=== PATIENT | female | born 1970 | race Hispanic/Latino ===

== ENCOUNTER 2017-09-18 07:18 | Emergency (ER) | payer OTHER ==
[~2017-09-18] VITALS: Ht 162.6 cm; Wt 135.2 kg
[~2017-09-18 07:18] MED LIST: AMLODIPINE-BEN1 EAC2 PO; CYCLOBENZAPRINE5 MG PO; CYMBALTA30 MG PO; DICLOFENAC SODI75 MG PO; FLAGYL500 MG PO; FOLIC ACID1 MG; NEURONTIN300 MG PO; NORCO 5-325 TA1 EACH PO; NORVASC2.5 MG PO; PREDNISONE20 MG PO; SMZ/TMP PO; Z.0.OMEPRAZOLE20 MG PO; Z.0.ZOFRAN4 MG PO; [UNRECOGNIZED DRUG - OTHER] PO
--- OUTSIDE RECORDS SUMMARY | 2017-09-18 07:22 | XMS REPORT ---
Author Author [facility] Address Unknown Phone Unavailable Care Team Providers Care Fitness/Wellness Director Name Role Phone KETTY HERCULES Unavailable Unavailable Problems This patient has no known problems. Allergies, Adverse Reactions, Alerts This patient has no known allergies or adverse reactions. Medications This patient has no known medications. Results Test Description Test Time Test Comments Text Results Atomic Results Result Comments URINALYSIS W/ MICROSCOPIC 2017-08-09 20:28:00 COLOR (BEAKER) (test ezmw=083) Light Yellow CLARITY (BEAKER) (test rjee=910) Clear SPECIFIC GRAVITY UA (BEAKER) (test encb=594) 1.007 1.001-1.035 PH UA (BEAKER) (test hxaz=264) 5.5 5.0-8.0 PROTEIN UA (BEAKER) (test gjlc=812) Negative Negative GLUCOSE UA (BEAKER) (test ymxp=504) Negative Negative KETONES UA (BEAKER) (test egpq=050) Negative Negative BILIRUBIN UA (BEAKER) (test mvkj=087) Negative Negative BLOOD UA (BEAKER) (test tywb=999) Negative Negative NITRITE UA (BEAKER) (test lmdj=607) Negative Negative LEUKOCYTE ESTERASE UA (BEAKER) (test mirf=855) Negative Negative UROBILINOGEN UA (BEAKER) (test qwxu=129) 0.2 mg/dL 0.2-1.0 RBC UA (BEAKER) (test tubg=032) 0 /HPF WBC UA (BEAKER) (test segv=425) < /HPF SQUAMOUS EPITHELIAL (BEAKER) (test adcq=580) < /HPF SOURCE(BEAKER) (test yhio=3707) Urine, Clean Catch BASIC METABOLIC [id number] 19:23:00* Test Item Value Reference Range Comments SODIUM (BEAKER) (test dgpe=466) 133 meq/L 136-145 POTASSIUM (BEAKER) (test hjif=233) 4.9 meq/L 3.5-5.1 Specimen markedly hemolyzed CHLORIDE (BEAKER) (test pnpd=422) 101 meq/L 98-107 CO2 (BEAKER) (test pakw=511) 21 meq/L 22-29 BLOOD UREA NITROGEN (BEAKER) (test lfrl=116) 11 mg/dL 7-21 CREATININE (BEAKER) (test idph=089) 0.71 mg/dL 0.57-1.25 Specimen markedly hemolyzed GLUCOSE RANDOM (BEAKER) (test osnz=509) 88 mg/dL 70-105 CALCIUM (BEAKER) (test nvyl=606) 9.8 mg/dL 8.4-10.2 EGFR (BEAKER) (test prym=1218) mL/min/1.73 sq m INSUFFICIENT CLINICAL DATA TO CALCULATE ESTIMATED GFR. CBC W/PLT COUNT & AUTO [id number] 19:21:00* Test Item Value Reference Range Comments WHITE BLOOD CELL COUNT (BEAKER) (test eelx=414) 14.6 K/ L 3.5-10.5 RED BLOOD CELL COUNT (BEAKER) (test qidj=396) 4.82 M/ L 3.93-5.22 HEMOGLOBIN (BEAKER) (test njyq=480) 14.3 GM/DL 11.2-15.7 HEMATOCRIT (BEAKER) (test smmh=240) 43.2 % 34.1-44.9 MEAN CORPUSCULAR VOLUME (BEAKER) (test dhdj=760) 89.6 fL 79.4-94.8 MEAN CORPUSCULAR HEMOGLOBIN (BEAKER) (test yppn=536) 29.7 pg 25.6-32.2 MEAN CORPUSCULAR HEMOGLOBIN CONC (BEAKER) (test rokf=906) 33.1 GM/DL 32.2- 35.5 RED CELL DISTRIBUTION WIDTH (BEAKER) (test wmkd=191) 15.3 % 11.7-14.4 PLATELET COUNT (BEAKER) (test gbod=471) 340 K/CU MM 150-450 MEAN PLATELET VOLUME (BEAKER) (test vkut=182) 11.3 fL 9.4-12.3 NUCLEATED RED BLOOD CELLS (BEAKER) (test fiou=077) 0 /100 WBC 0-0 IMMATURE GRANULOCYTES-RELATIVE PERCENT (BEAKER) (test eool=8357) 1 % 0-1 (MANUAL DIFFERENTIAL)2017-08-09 19:21:00* Test Item Value Reference Range Comments NEUTROPHILS - REL (DIFF) (BEAKER) (test lwkc=7115) 53 % LYMPHOCYTES - REL (DIFF) (BEAKER) (test ztue=5528) 34 % MONOCYTES - REL (DIFF) (BEAKER) (test klxy=9472) 3 % EOSINOPHILS - REL (DIFF) (BEAKER) (test unhf=3198) 5 % BASOPHILS - REL (DIFF) (BEAKER) (test ifoh=0918) 3 % PROMYELOCYTES-REL (DIFF) (BEAKER) (test nghl=591) 1 % 0-0 ATYPICAL LYMPHOCYTE - REL (DIFF) (BEAKER) (test obnf=228) 1 % 0-0 NEUTROPHILS - ABS (DIFF) (BEAKER) (test lhld=8139) 7.74 K/ L 1.80-8.00 LYMPHOCYTES - ABS (DIFF) (BEAKER) (test pkiy=7123) 4.96 K/ L 1.48-4.50 MONOCYTES - ABS (DIFF) (BEAKER) (test ncud=6436) 0.44 K/ L 0.00-1.30 EOSINOPHILS - ABS (DIFF) (BEAKER) (test bxwn=3389) 0.73 K/ L 0.00-0.50 BASOPHILS - ABS (DIFF) (BEAKER) (test gtyi=6644) 0.44 K/ L 0.00-0.20 PROMYELOCYTES - ABS (DIFF) (BEAKER) (test enyo=409) 0.15 K/ L 0.00-0.00 ATYPICAL LYMPHOCYTES - ABS (DIFF) (BEAKER) (test pcxb=073) 0.15 K/ L 0.00- 0.00 TOTAL COUNTED (BEAKER) (test shnr=5269) 100 WBC MORPHOLOGY (BEAKER) (test jovo=158) Normal PLT MORPHOLOGY (BEAKER) (test aaxg=821) Normal ANISOCYTOSIS (BEAKER) (test gwdf=371) 1+ few MACROCYTES (BEAKER) (test haya=046) 1+ few CREATINE KINASE (CK), TOTAL AND [id number] 19:16:00* Test Item Value Reference Range Comments CREATINE KINASE TOTAL (BEAKER) (test qvib=013) 42 U/L 29-200 CREATINE KINASE-MB (BEAKER) (test fzyf=574) 0.4 ng/mL 0.0-6.6 CREATINE KINASE-MB INDEX (COLE) (test duym=400) 1.0 % CK-MB Reference Range:<6.7 Normal6.7-10.0 Borderline>10.0 AbnormalTROPONIN [id number] 19:16:00* Test Item Value Reference Range Comments TROPONIN I (COLE) (test jdqz=270) < ng/mL 0.00-0.03 Troponin I (TnI) levels must be interpreted in the context of the presenting symptoms and the clinical findings. Elevated TnI levels indicate myocardial damage, but are not specific for ischemic heart disease. Elevated TnI levels are seen in patients with other cardiac conditions (including myocarditis and congestive heart failure), and slight TnI elevations occur in patients with other conditions, including sepsis, renal failure, acidosis, acute neurological disease, and persistent tachyarrhythmia.CT, BRAIN, WITHOUT [id number] 18 :09:00Reason for exam:->DIZZINESSReason for exam:->NUMBNESSWhat is the patient' s sedation requirement?->No SedationFINAL REPORT CT head without contrast. Comparisons: No Reason for exam: DIZZINESSNUMBNESSDIZZINESS. Discussion: Multiple axial CT images of the head are provided without contrast evaluated in brain and bone windows. Dose modulation, iterative reconstruction, and/or weight based adjustment of the mA/ kV was utilized to reduce the radiation dose to as low as reasonably achievable. There is no CT evidence of intracranial hemorrhage, mass-effect, hydrocephalus, shift, or extra-axial collections. The visualized dural sinus regions, orbital contents, paranasal sinuses, bones and surrounding soft tissues are unremarkable. Impressions: 1. No specific evidence of acute intracranial abnormality. Signed: Steve Boyer Verified Date/Time: 18:09:37 Electronically signed by: STEVE BOYER M.D. on 2017 06:09 PM
--- NOTE | 2017-09-18 10:35 | Diagnostic Imaging Report ---
PROCEDURE: Frontal and lateral views of the chest. COMPARISON: None. INDICATIONS: FEVER, COUGH, DIZZY FINDINGS: Lines/tubes: None. Lungs: The lungs are well inflated and clear. There is no evidence of pneumonia or pulmonary edema. Pleura: There is no pleural effusion or pneumothorax. Heart and mediastinum: The heart and the mediastinum are normal. Bones: No acute bony abnormality. Postoperative changes of the right shoulder. IMPRESSION: No acute radiographic abnormality. Dictated by: Al Moran M.D. on 09/18/2017 at 10:36 Electronically approved by: Al Moran M.D. on 09/18/2017 at 10:36
[2017-09-18 10:40] LABS: BILIRUBIN,URINE NEGATIVE (NEGATIVE); CLARITY,URINE CLEAR (CLEAR); COLOR,URINE YELLOW (YELLOW); KETONES,URINE NEGATIVE (NEGATIVE); LEUKOCYTE ESTERASE ,URINE TRACE (NEGATIVE); NITRITE,URINE NEGATIVE (NEGATIVE); PROTEIN,URINE DIPSTICK NEGATIVE (NEGATIVE); URINE UROBILINOGEN 0.2 mg/dL (0.2 - 1)
[2017-09-18 10:59] LABS: BACTERIA,URINE RARE /HPF; EPITHELIAL CELLS,URINE FEW /LPF; WBC,URINE (MAN) 0-5 /HPF (0-5)
== END 2017-09-18 12:33 | disposition home or self-care (01) ==
LOC: ER 07:18
DX: R53.1 Weakness (principal); I10 Essential (primary) hypertension
CPT/HCPCS: 71046; 81001; 87400; 99283

== ENCOUNTER 2018-01-15 12:23 | Emergency (ER) | payer OTHER ==
[~2018-01-15] VITALS: Ht 160 cm; Wt 95.3 kg
[2018-01-15 13:32] LABS: BASOPHILS # (AUTO) 0.1 (0.0-0.1); BASOPHILS % 0.5 % (0.0-1.0); EOSINOPHILS # (AUTO) 0.1 (0.0-0.4); EOSINOPHILS % 0.9 % (0.0-6.0); HEMATOCRIT 44.2 % (34.2-44.1); LYMPHOCYTES # (AUTO) 3.7 (1.0-3.2); LYMPHOCYTES % 25.2 % (18.0-39.1); MEAN CORPUSCULAR HGB CONC 33.9 g/dL (31-35); MEAN CORPUSCULAR VOLUME 85.5 fL (81-99); MONOCYTES # (AUTO) 1.1 (0.2-0.8); MONOCYTES % 7.6 % (4.4-11.3); NEUTROPHILS # (AUTO) 9.6 (2.1-6.9); NEUTROPHILS % 65.1 % (38.7-80.0); PLATELET COUNT 233 x10e3/uL (140-360); RED BLOOD COUNT 5.17 x10e6/uL (3.6-5.1); RED CELL DISTRIBUTION WIDTH 14.6 % (11.7-14.4)
[2018-01-15 13:42] LABS: BILIRUBIN,URINE NEGATIVE (NEGATIVE); CLARITY,URINE CLOUDY (CLEAR); COLOR,URINE YELLOW (YELLOW); KETONES,URINE 2+ (NEGATIVE); LEUKOCYTE ESTERASE ,URINE 1+ (NEGATIVE); NITRITE,URINE NEGATIVE (NEGATIVE); PROTEIN,URINE DIPSTICK NEGATIVE (NEGATIVE); URINE UROBILINOGEN 0.2 mg/dL (0.2 - 1)
[2018-01-15 13:50] LABS: ALANINE AMINOTRANSFERASE 21 IU/L (0-55); ALBUMIN 3.7 g/dL (3.5-5.0); ALBUMIN/GLOBULIN RATIO 1.1 (0.8-2.0); ALKALINE PHOSPHATASE 51 IU/L (40-150); AMYLASE 73 U/L (25-125); ANION GAP 14.5 mmol/L (8-16); BLOOD UREA NITROGEN 9 mg/dL (7-26); BUN/CREATININE RATIO 12 (6-25); CALCIUM 9.6 mg/dL (8.4-10.2); CARBON DIOXIDE 23 mmol/L (22-29); CHLORIDE 102 mmol/L (98-107); CREATININE, SERUM 0.75 mg/dL (0.57-1.11); EST GLOMERULAR FILTRATION RATE > 60 ML/MIN (60-); GLUCOSE 96 mg/dL (74-118); LIPASE 115 U/L (8-78); POTASSIUM 3.5 mmol/L (3.5-5.1); SODIUM 136 mmol/L (136-145)
[2018-01-15 13:51] LABS: BACTERIA,URINE FEW /HPF; EPITHELIAL CELLS,URINE MODERATE /LPF
[2018-01-15] MEDS ORDERED: ONDANSETRON HCL INJ 2 MG/ML VIAL IV STA (14:30)
[2018-01-15] MEDS ORDERED: KETOROLAC TROMETHAMINE 30 MG/ML VIAL IV NR (14:45)
[2018-01-15] MEDS ORDERED: CEFTRIAXONE SOD 1 GM VIAL IV ONE (16:00)
--- NOTE | 2018-01-15 17:38 | Diagnostic Imaging Report ---
EXAM: CT Abdomen and Pelvis WITH contrast INDICATION: \S\PANCREATITIS \S\[id number] \S\1630 \S\Y COMPARISON: None available. TECHNIQUE: Abdomen and pelvis were scanned utilizing a multidetector helical scanner from the lung base to the pubic symphysis after administration of IV contrast. Coronal and sagittal reformations were obtained. Routine protocol was performed. Scan was performed when during portal venous phase. IV CONTRAST: 100 mL of Isovue-370 ORAL CONTRAST: Water COMPLICATIONS: None RADIATION DOSE: Total DLP: 789.45 mGy*cm Estimated effective dose: (DLP x 0.015 x size factor) mSv CTDIvol has been reviewed. It is below the limits set by the Radiation Protocol Committee (RPC). FINDINGS: LINES and TUBES: None. LOWER THORAX: Left basilar linear atelectasis/scarring. HEPATOBILIARY: Hepatic steatosis. No focal hepatic lesions. No biliary ductal dilation. GALLBLADDER: No radio-opaque stones or sludge. No wall thickening. SPLEEN: No splenomegaly. PANCREAS: No focal masses or ductal dilatation. ADRENALS: No adrenal nodules KIDNEYS/URETERS: Kidneys enhance symmetrically. No hydronephrosis. No cystic or solid mass lesions. No stones. GI TRACT: No abnormal distention, wall thickening, or evidence of bowel obstruction. Appendix is visualized with certainty. Right abdomen surgical clips. PELVIC ORGANS/BLADDER: Uterus and adnexa are unremarkable on CT assessment. Bladder is under distended, limiting evaluation. LYMPH NODES: No lymphadenopathy. VESSELS: Unremarkable. PERITONEUM / RETROPERITONEUM: No free air or fluid. BONES: Unremarkable. SOFT TISSUES: Possible right breast nodule with tiny calcification (series 2, image 13). IMPRESSION: 1. No acute inflammatory process in the abdomen/pelvis, specifically no evidence of pancreatitis. 2. Hepatic steatosis. 3. Questionable right breast nodule, which can be further evaluated with mammography. Signed by: Dr. Torrey Ventura MD on 01/15/2018 5:35 PM
[2018-01-15 18:30] VITALS: BP 113/79
[2018-01-15] MEDS ORDERED: IOPAMIDOL 370 MG/ML 200 ML INFUS..BTL INJ ONE (18:46)
[2018-01-15] MEDS ORDERED: SODIUM CHLORIDE 0.9% 50ML 50 ML ONE (18:46)
== END 2018-01-15 18:40 | disposition home or self-care (01) ==
LOC: ER 12:23
DX: R11.2 Nausea with vomiting, unspecified (principal); R19.7 Diarrhea, unspecified; K52.9 Noninfective gastroenteritis and colitis, unspecified; N30.91 Cystitis, unspecified with hematuria
CPT/HCPCS: 36415; 74177; 80053; 81001; 81025; 82150; 83690; 85025; 99284; J0696; J1885; J2405; Q9967

== ENCOUNTER 2019-01-23 14:17 | Observation (INO) | payer OTHER ==
[~2019-01-23] VITALS: Ht 160 cm; Wt 90.9 kg
--- OUTSIDE RECORDS SUMMARY | 2019-01-23 14:21 | XMS REPORT | Continuity of Care Document ---
Author Author [employer] Organization [employer] Address Unknown Phone Unavailable Care Team Providers Care Scout Leaser Name Role Phone [employer] Information [employer] Unavailable Unavailable Problems Problem Status Onset Date Classification Date Reported Comments Source Unilateral primary osteoarthritis, right knee 06/16/2018 12/29/2018 [facility] KNEE Active 06/08/2018 [facility] [place] [id number], [id number] RIGHT KNEE OSTEOARTHRITIS Active 04/24/2018 [facility] M17.11 - UNILATERAL PRIMARY OSTEOARTHRI Active 04/18/2018 [facility] PAIN R KNEE Active 07/03/2017 [facility] [place] Other complications of foreign body accidentally left in body following surgical operation, initial encounter 12/29/2018 [facility] Pain in left leg 12/29/2018 [facility] Osteoarthritis1 Active Problem 12/29/2018 right knee [facility] [place],[facility] ILLNESS, UNSPECIFIED Active [facility] Medications Medication Details Route Status Patient Instructions Ordering Provider Order Date Source Protonix 40 mg, 1 tab, Route: PO, Drug form: ECTAB, Before Dinner, Dosing Weight 100, kg, Start date: 06/11/18 16:30:00 VASCULAR TECHNOLOGIST, Duration: 30 day, Stop date: 07/10/18 16:30:00 CSTNotes: Tablet should not be chewed or crushed. (Same as: Protonix) Inactive 06/11/2018 [facility] 12 HR Oxycodone Hydrochloride 10 MG Extended Release Tablet [Oxycontin] 10 mg=1 tab, PO, Q12H, # 30 tab, 0 Refill(s), given to patient Active 06/11/2018 [facility] Naproxen 500 mg, 1 tab, Route: PO, Drug form: TAB, BID, Dosing Weight 100, kg, Start date: 06/11/18 9:00:00 VASCULAR TECHNOLOGIST, Duration: 30 day, Stop date: 07/10/18 17:00:00 CSTNotes: (Same as: Naprosyn) Take with food. Inactive 06/11/2018 [facility] gabapentin 300 MG Oral Capsule 300 mg, Route: PO, Drug form: CAP, Daily, Dosing Weight 100, kg, (CrCl No Longer Active 06/11/2018 [facility] ketOROLAC 30 mg/mL injectable solution 30 mg, 1 mL, Route: IV, Drug form: INJ, ONCE, Start date: 06/10/18 23:30:00 VASCULAR TECHNOLOGIST, Stop date: 06/10/18 23:30:00 CSTNotes: (Same as:Toradol) IV bolus must be given >15 seconds. Give IM administration slowly and deeply into the muscle. Not for use > 4 days MEDICATION WASTE Product Size: 30 mg Product Wasted: ___ mg No Longer Active 06/11/2018 [facility] aspirin 81 mg tablet, enteric coated 81 mg, 1 tab, Route: PO, Drug form: ECTAB, Q12H, Start date: 06/10/18 21:00:00 VASCULAR TECHNOLOGIST, Duration: 30 day, Stop date: 07/10/18 9:00:00 CSTNotes: Do not crush or chew. (Same As: Ecotrin) No Longer Active 06/11/2018 [facility] Ketorolac 30 mg, 1 mL, Route: IVP, Drug form: INJ, ONCE, Dosing Weight 100, kg, Start date: 06/10/18 18:52:00 VASCULAR TECHNOLOGIST, Stop date: 06/10/18 18:52:00 CSTNotes: (Same as:Toradol) IV bolus must be given >15 seconds. Give IM administration slowly and deeply into the muscle. Not for use > 4 days MEDICATION WASTE Product Size: 30 mg Product Wasted: ___ mg Inactive 06/11/2018 [facility] Oxycontin 20 mg, 1 tab, Route: PO, Drug form: ERTAB, Q12H, Dosing Weight 100, kg, Start date: 06/10/18 18:30:00 VASCULAR TECHNOLOGIST, Duration: 30 day, Stop date: 07/10/18 6:30:00 CSTNotes: Do not crush or chew. (Same as: OxyContin) No Longer Active 06/11/2018 [facility] naloxone 0.4 mg, 1 mL, Route: IVP, Drug form: INJ, Q2MIN, PRN Narcotic Reversal, Start date: 06/10/18 17:29:00 VASCULAR TECHNOLOGIST, Duration: 30 day, Stop date: 07/10/18 17:28:00 CSTNotes: Same as Narcan No Longer Active 06/10/2018 [facility] Ketorolac 30 mg, Route: IM, Q8H, Dosing Weight 100, kg, PRN Pain Score 7-10, Start date: 06/10/18 15:19:00 VASCULAR TECHNOLOGIST, Duration: 4 day, Stop date: 06/14/18 15:18:00 VASCULAR TECHNOLOGIST Inactive 06/10/2018 [facility] ropivacaine Route: NERVE BLOCK, Start date: 06/10/18 8:29:00 VASCULAR TECHNOLOGIST 400 mL, Drug Form: INJ, Dosing Weight 100, kg, Duration: 30 day, Stop date: 07/10/18 8:28:00 VASCULAR TECHNOLOGIST, 8 ml/hrNotes: Final concentration: Ropivacaine 0.2% 400 ml No Longer Active 06/10/2018 [facility] Robaxin 500 mg, Route: PO, Drug form: TAB, TID, Dosing Weight 100, kg, Start date: 06/09/18 13:00:00 VASCULAR TECHNOLOGIST, Duration: 30 day, Stop date: 07/09/18 9:00:00 VASCULAR TECHNOLOGIST Inactive 06/09/2018 [facility] Robaxin 500 mg, 1 tab, Route: PO, Drug form: TAB, TID, Dosing Weight 100, kg, PRN Leg Cramps, Start date: 06/09/18 9:43:00 VASCULAR TECHNOLOGIST, Duration: 30 day, Stop date: 07/09/18 9:42:00 CSTNotes: (Same as:Robaxin) No Longer Active 06/09/2018 [facility] Methocarbamol 500 MG Oral Tablet [Robaxin] 500 mg=1 tab, PO, Q6H, PRN Spasms, X 7 day, # 28 tab, 0 Refill(s), Pharmacy: [facility] [id number] [facility] No Longer Active 06/09/2018 [facility] Lidocaine Hydrochloride 0.05 MG/MG Transdermal Patch [Lidoderm] 1 patch, Route: TOP, ONCE, Drug form: FILM, Start date: 06/09/18 8:28:00 VASCULAR TECHNOLOGIST, Stop date: 06/09/18 8:28:00 VASCULAR TECHNOLOGIST, Remove after 12 hours Inactive 06/09/2018 [facility] Robaxin 500 mg, 5 mL, Route: IV, ONCE, Dosing Weight 100, kg, Priority: NOW, Start date: 06/09/18 8:25:00 VASCULAR TECHNOLOGIST, Stop date: 06/09/18 8:25:00 CSTNotes: (Same as:Robaxin) Inactive 06/09/2018 [facility] midazolam (ANES) Route: IV, Drug form: SOLN, ONCE, Stop date: 06/09/18 7:48:00 VASCULAR TECHNOLOGIST Inactive 06/09/2018 [facility] lidocaine (ANES) Route: IV, Drug form: INJ, ONCE, Stop date: 06/09/18 7:48:00 VASCULAR TECHNOLOGIST Inactive 06/09/2018 [facility] fentaNYL (ANES) Route: IV, Drug form: INJ, ONCE, Stop date: 06/09/18 7:48:00 VASCULAR TECHNOLOGIST Inactive 06/09/2018 [facility] propofol (ANES) Route: IV, Drug form: INJ, ONCE, Stop date: 06/09/18 7:48:00 VASCULAR TECHNOLOGIST Inactive 06/09/2018 [facility] ondansetron (ANES) Route: IV, Drug form: INJ, ONCE, Stop date: 06/09/18 7:48:00 VASCULAR TECHNOLOGIST Inactive 06/09/2018 [facility] ketOROLAC (ANES) IV, ONCE Inactive 06/09/2018 [facility] ceFAZolin (ANES) Route: IV, Drug form: INJ, ONCE, Stop date: 06/09/18 7:48:00 VASCULAR TECHNOLOGIST Inactive 06/09/2018 [facility] dexamethasone (ANES) Route: IV, Drug form: INJ, ONCE, Stop date: 06/09/18 7:48:00 VASCULAR TECHNOLOGIST Inactive 06/09/2018 [facility] Midazolam 1 mg, 1 mL, Route: IVP, Drug form: INJ, Q5Min, Dosing Weight 100, kg, PRN Anxiety, Start date: 06/09/18 7:23:00 VASCULAR TECHNOLOGIST, Duration: 2 doses or times, Stop date: Limited # of timesNotes: (Same as: Versed) MEDICATION WASTE Product Size: 5 mg Product Wasted: ___ mg Inactive 06/09/2018 [facility] Flumazenil 0.2 mg, 2 mL, Route: IVP, Drug form: INJ, PRN, Dosing Weight 100, kg, PRN Benzodiazepine Reversal, Initial dose, Start date: 06/09/18 7:23:00 VASCULAR TECHNOLOGIST, Duration: 30 day, Stop date: 07/09/18 7:22:00 CSTNotes: (Same as: Romazicon) Inactive 06/09/2018 [facility] Naloxone 0.4 mg, 1 mL, Route: IVP, Drug form: INJ, Q2MIN, Dosing Weight 100, kg, PRN Narcotic Reversal, Start date: 06/09/18 7:23:00 VASCULAR TECHNOLOGIST, Duration: 8 doses or times, Stop date: Limited # of timesNotes: Same as Narcan Inactive 06/09/2018 [facility] Acetaminophen 1,000 mg, 2 tab, Route: PO, Drug form: TAB, ONCE, Dosing Weight 100, kg, PRN Pain Score 1-3, Start date: 06/09/18 7:23:00 CSTNotes: Max acetaminophen 4000 mg/day (4 gm/day). (Same as: Tylenol Extra Strength) Inactive 06/09/2018 [facility] Ketorolac 30 mg, 1 mL, Route: IVP, Drug form: INJ, ONCE, Dosing Weight 100, kg, Start date: 06/09/18 7:23:00 VASCULAR TECHNOLOGIST, Stop date: 06/09/18 7:23:00 CSTNotes: (Same as:Toradol) IV bolus must be given >15 seconds. Give IM administration slowly and deeply into the muscle. Not for use > 4 days MEDICATION WASTE Product Size: 30 mg Product Wasted: ___ mg Inactive 06/09/2018 [facility] Meperidine 12.5 mg, 0.25 mL, Route: IVP, Drug form: INJ, Q30Min, Dosing Weight 100, kg, PRN Other -See Comment, For shivering, Start date: 06/09/18 7:23:00 VASCULAR TECHNOLOGIST, Duration: 2 doses or times, Stop date: Limited # of timesNotes: (Same as: Demerol) "Use Precaution in Elderly, Seizure disorders, and Renal impairment" Inactive 06/09/2018 [facility] Ondansetron 4 mg, 2 mL, Route: IVP, Drug form: INJ, ONCE, Dosing Weight 100, kg, PRN Nausea & Vomiting, Start date: 06/09/18 7:23:00 CSTNotes: (Same as: Zofran) MEDICATION WASTE Product Size: 4 mg Pro duct Wasted: ___ mg Inactive 06/09/2018 [facility] Promethazine 6.25 mg, 0.25 mL, Route: IVPB, ONCE, Dosing Weight 100, kg, PRN Nausea & Vomiting, Start date: 06/09/18 7:23:00 CSTNotes: Do not give IV push. (Same as: Phenergan) Inactive 06/09/2018 [facility] Diphenhydramine 12.5 mg, 0.25 mL, Route: IVP, Drug form: INJ, Q6H, Dosing Weight 100, kg, PRN Itching, Start date: 06/09/18 7:23:00 VASCULAR TECHNOLOGIST, Duration: 30 day, Stop date: 07/09/18 7:22:00 CSTNotes: (Same as: Benadryl) Inactive 06/09/2018 [facility] Hydromorphone 0.5 mg, Route: IVP, Q5Min, Dosing Weight 100, kg, PRN Pain Score 7-10, Start date: 06/09/18 7:23:00 VASCULAR TECHNOLOGIST, Duration: 4 doses or times, Stop date: Limited # of times Inactive 06/09/2018 [facility] Morphine 2 mg, 0.5 mL, Route: IVP, Drug form: SOLN, Q5Min, Dosing Weight 100, kg, PRN Pain Score 4-6, Start date: 06/09/18 7:23:00 VASCULAR TECHNOLOGIST, Duration: 5 doses or times, Stop date: Limited # of timesNotes: (Same as :MORPhine Sulfate) Inactive 06/09/2018 [facility] Hydralazine 10 mg, 0.5 mL, Route: IVP, Drug form: INJ, Q20Min, Dosing Weight 100, kg, PRN Elevated BP, Start date: 06/09/18 7:23:00 VASCULAR TECHNOLOGIST, Duration: 2 doses or times, Stop date: Limited # of times Inactive 06/09/2018 [facility] Metoprolol 1 mg, 1 mL, Route: IVP, Drug form: INJ, Q5Min, Dosing Weight 100, kg, PRN Other -See Comment, Start date: 06/09/18 7:23:00 VASCULAR TECHNOLOGIST, Duration: 5 doses or times, Stop date: Limited # of timesNotes: (Same as: Lopressor) Push over 2 minutes Inactive 06/09/2018 [facility] Labetalol 10 mg, 2 mL, Route: IVP, Drug form: INJ, Q5Min, Dosing Weight 100, kg, PRN Elevated BP, Start date: 06/09/18 7:23:00 VASCULAR TECHNOLOGIST, Duration: 5 doses or times, Stop date: Limited # of times Inactive 06/09/2018 [facility] ANES Enalaprilat 0.625 mg, 0.5 mL, Route: IVP, Drug form: INJ, Q5Min, Dosing Weight 100, kg, PRN Elevated BP, Start date: 06/09/18 7:23:00 VASCULAR TECHNOLOGIST, Duration: 4 doses or times, Stop date: Limited # of timesNotes: (Same as: Vasotec-IV) Inactive 06/09/2018 [facility] Lactated Ringers Injection IV (ANES) 1000 mL Route: IV, Total Volume: 1,000, Start date: 06/09/18 7:05:00 VASCULAR TECHNOLOGIST, Stop date: 06/09/18 8:05:00 VASCULAR TECHNOLOGIST Inactive 06/09/2018 [facility] Mupirocin 1 appl, Route: NASAL, Q12H, Drug form: OINT, Start date: 06/08/18 21:00:00 VASCULAR TECHNOLOGIST, Duration: 30 day, Stop date: 07/08/18 9:00:00 VASCULAR TECHNOLOGIST No Longer Active 06/09/2018 [facility] pregabalin 150 mg, 2 cap, Route: PO, Drug form: CAP, TID, Dosing Weight 100, kg, Start date: 06/08/18 20:30:00 VASCULAR TECHNOLOGIST, Duration: 30 day, Stop date: 07/08/18 20:00:00 CSTNotes: (Same as: Lyrica) No Longer Active 06/09/2018 [facility] Ondansetron 4 MG Oral Tablet [Zofran] 4 mg=1 tab, PO, Q6H, PRN Nausea/Vomiting, # 30 tab, 0 Refill(s), Pharmacy: [facility] Active 06/08/2018 [facility] celecoxib 200 mg oral capsule 200 mg=1 cap, PO, Q12H, # 30 cap, 0 Refill(s), Pharmacy: [email or web address] Active 06/08/2018 [facility] Aspirin 325 MG Oral Tablet 325 mg=1 tab, PO, Q12H, # 50 tab, 0 Refill(s), Pharmacy: [facility] [id number] [facility] Active 06/08/2018 [facility] celecoxib 200 mg, 1 cap, Route: PO, Drug form: CAP, Q12H, Dosing Weight 96.818, kg, Start date: 06/08/18 17:00:00 VASCULAR TECHNOLOGIST, Duration: 30 day, Stop date: 07/08/18 5:00:00 CSTNotes: NSAID. Please check indication. Not for seizure. (Same As: CeleBREX) No Longer Active 06/08/2018 [facility] Docusate 100 mg, 1 cap, Route: PO, Drug form: CAP, BID, Dosing Weight 96.818, kg, Start date: 06/08/18 17:00:00 VASCULAR TECHNOLOGIST, Duration: 30 day, Stop date: 07/08/18 9:00:00 CSTNotes: (Same as: Colace) (Do Not Crush) No Longer Active 06/08/2018 [facility] gabapentin 300 mg, 1 cap, Route: PO, Drug form: CAP, Q8H, Dosing Weight 96.818, kg, Start date: 06/08/18 16:00:00 VASCULAR TECHNOLOGIST, Duration: 30 day, Stop date: 07/08/18 8:00:00 CSTNotes: (Same as: Neurontin) Inactive 06/08/2018 [facility] Aspirin 325 mg, 1 tab, Route: PO, Drug form: TAB, Q12H, Dosing Weight 96.818, kg, For patients with risk of bleeding, Start date: 06/08/18 14:59:00 VASCULAR TECHNOLOGIST, Stop date: 07/08/18 9:00:00 VASCULAR TECHNOLOGIST No Longer Active 06/08/2018 [facility] Acetaminophen 1,000 mg, 2 tab, Route: PO, Drug form: TAB, Q6H, Dosing Weight 96.818, kg, Start date: 06/08/18 14:00:00 VASCULAR TECHNOLOGIST, Duration: 30 day, Stop date: 07/08/18 8:00:00 CSTNotes: Max acetaminophen 4000 mg/day (4 gm/day). (Same as: Tylenol Extra Strength) No Longer Active 06/08/2018 [facility] Cefazolin 2 gm, Route: IVPB, Q6H, Dosing Weight 96.818, kg, Start date: 06/08/18 14:00:00 VASCULAR TECHNOLOGIST, Duration: 3 doses or times, Stop date: 06/09/18 2:00:00 VASCULAR TECHNOLOGIST, ABX Indication: Surgical ProphylaxisNotes: (Same As: Anc ef, Kefzol) MEDICATION WASTE Product Size: 1000 mg Product Wasted: ___ mg No Longer Active 06/08/2018 [facility] Vitamin D2 50,000 intl units oral capsule 50,000 IntlUnit=1 cap, PO, qWeek, 0 Refill(s) Active 06/08/2018 [facility] Sodium Chloride 0.9% IV 25 mL, Route: IV, Start date: 06/08/18 13:13:00 VASCULAR TECHNOLOGIST, Duration: 30 day, Stop date: 07/08/18 13:12:00 VASCULAR TECHNOLOGIST, PRN Line Flush No Longer Active 06/08/2018 [facility] BD Normal Saline Flush 10 mL, Route: IV, Drug Form: INJ, PRN, PRN Line Flush, Start date: 06/08/18 13:13:00 VASCULAR TECHNOLOGIST, Duration: 30 day, Stop date: 07/08/18 13:12:00 CSTNotes: (Same as: BD Posiflush) No Longer Active 06/08/2018 [facility] Acetaminophen 1,000 mg, Route: IVPB, Q6Hnow, Dosing Weight 96.818, kg, Start date: 06/08/18 11:00:00 VASCULAR TECHNOLOGIST, Duration: 30 day, Stop date: 07/08/18 5:00:00 VASCULAR TECHNOLOGIST Inactive 06/08/2018 [facility] ketOROLAC (ANES) IV, ONCE Inactive 06/08/2018 [facility] ondansetron (ANES) Route: IV, Drug form: INJ, ONCE, Stop date: 06/08/18 10:47:00 VASCULAR TECHNOLOGIST Inactive 06/08/2018 [facility] morphine Sulfate (ANES) Route: IV, Drug form: INJ, ONCE, Stop date: 06/08/18 10:47:00 VASCULAR TECHNOLOGIST Inactive 06/08/2018 [facility] Oxycodone Hydrochloride 5 MG Oral Tablet 5 mg, 1 tab, Route: PO, Drug form: TAB, Q4H, Dosing Weight 96.818, kg, PRN Pain Score 4-6, Start date: 06/08/18 10:36:00 VASCULAR TECHNOLOGIST, Duration: 30 day, Stop date: 07/08/18 10:35:00 CSTNotes: (Same as: Roxicodone) No Longer Active 06/08/2018 [facility] Morphine 6 mg, 3 mL, Route: PO, Drug form: SOLN, Q4H, Dosing Weight 96.818, kg, PRN Pain Score 7-10, Start date: 06/08/18 10:36:00 VASCULAR TECHNOLOGIST, Duration: 30 day, Stop date: 07/08/18 10:35:00 CSTNotes: (Same as:MORPhine Sulfate) No Longer Active 06/08/2018 [facility] Diphenhydramine 12.5 mg, 5 mL, Route: PO, Drug form: LIQ, Q6H, Dosing Weight 96.818, kg, PRN Itching, Start date: 06/08/18 10:36:00 VASCULAR TECHNOLOGIST, Duration: 30 day, Stop date: 07/08/18 10:35:00 CSTNotes: (Same as: Benadryl) No Longer Active 06/08/2018 [facility] tizanidine 2 mg, 0.5 tab, Route: PO, Drug form: TAB, Q6H, Dosing Weight 96.818, kg, PRN Muscle Spasms, Start date: 06/08/18 10:36:00 VASCULAR TECHNOLOGIST, Duration: 30 day, Stop date: 07/08/18 10:35:00 CSTNotes: (Same As: Zanaflex) No Longer Active 06/08/2018 [facility] Ondansetron 4 mg, 2 mL, Route: IVP, Drug form: INJ, Q8H, Dosing Weight 96.818, kg, PRN Nausea & Vomiting, Start date: 06/08/18 10:36:00 VASCULAR TECHNOLOGIST, Duration: 30 day, Stop date: 07/08/18 10:35:00 CSTNotes: (Same as: Zofran) MEDICATION WASTE Product Size: 4 mg Product Wasted: ___ mg No Longer Active 06/08/2018 [facility] Melatonin 3 mg, 1 tab, Route: PO, Drug form: TAB, Bedtime, Dosing Weight 96.818, kg, PRN Insomnia, Start date: 06/08/18 10:36:00 VASCULAR TECHNOLOGIST, Duration: 30 day, Stop date: 07/08/18 10:35:00 CSTNotes: (Same as: Melatonin) No Longer Active 06/08/2018 [facility] Aluminum Hydroxide 40 MG/ML / Magnesium Hydroxide 40 MG/ML / Simethicone 4 MG/ML Oral Suspension 30 mL, Route: PO, Drug Form: SUSP, Dosing Weight 96.818, kg, Q4H, PRN Indigestion, Start date: 06/08/18 10:36:00 VASCULAR TECHNOLOGIST, Duration: 30 day, Stop date: 07/08/18 10:35:00 CSTNotes: (aluminum hydroxide-magnesium hyd-simethicone 552-107-62ol/5ml 30 ml ud BETITO) No Longer Active 06/08/2018 [facility] 1/2 NS 1,000 mL 1,000 mL, Rate: 75 ml/hr, Infuse over: 13.3 hr, Route: IV, Dosing Weight 96.818 kg, Total Volume: 1,000, Start date: 06/08/18 10:33:00 VASCULAR TECHNOLOGIST, Duration: 30 day, Stop date: 07/08/18 10:32:00 VASCULAR TECHNOLOGIST, 2.11, m2 No Longer Active 06/08/2018 [facility] propofol (ANES) Route: IV, Drug form: INJ, ONCE, Stop date: 06/08/18 9:03:00 VASCULAR TECHNOLOGIST Inactive 06/08/2018 [facility] dexamethasone (ANES) Route: IV, Drug form: INJ, ONCE, Stop date: 06/08/18 8:58:00 VASCULAR TECHNOLOGIST Inactive 06/08/2018 [facility] midazolam (ANES) Route: IV, Drug form: SOLN, ONCE, Stop date: 06/08/18 8:58:00 VASCULAR TECHNOLOGIST Inactive 06/08/2018 [facility] metoclopramide (ANES) Route: IV, Drug form: INJ, ONCE, Stop date: 06/08/18 8:58:00 VASCULAR TECHNOLOGIST Inactive 06/08/2018 [facility] famotidine (ANES) Route: IV, Drug form: INJ, ONCE, Stop date: 06/08/18 8:58:00 VASCULAR TECHNOLOGIST Inactive 06/08/2018 [facility] fentaNYL (ANES) Route: IV, Drug form: INJ, ONCE, Stop date: 06/08/18 8:53:00 VASCULAR TECHNOLOGIST Inactive 06/08/2018 [facility] ceFAZolin (ANES) Route: IV, Drug form: INJ, ONCE, Stop date: 06/08/18 8:53:00 VASCULAR TECHNOLOGIST Inactive 06/08/2018 [facility] lidocaine (ANES) Route: IV, Drug form: INJ, ONCE, Stop date: 06/08/18 8:53:00 VASCULAR TECHNOLOGIST Inactive 06/08/2018 [facility] Ondansetron 4 mg, Route: IVP, ONCE, Dosing Weight 96.818, kg, PRN Nausea & Vomiting, Start date: 06/08/18 8:34:00 VASCULAR TECHNOLOGIST Inactive 06/08/2018 [facility] Hydralazine 10 mg, Route: IVP, Q20Min, Dosing Weight 96.818, kg, PRN Elevated BP, Start date: 06/08/18 8:34:00 VASCULAR TECHNOLOGIST, Duration: 2 doses or times, Stop date: Limited # of times Inactive 06/08/2018 [facility] Metoprolol 1 mg, Route: IVP, Q5Min, Dosing Weight 96.818, kg, PRN Other -See Comment, Start date: 06/08/18 8:34:00 VASCULAR TECHNOLOGIST, Duration: 5 doses or times, Stop date: Limited # of times Inactive 06/08/2018 [facility] Morphine 2 mg, Route: IVP, Q5Min, Dosing Weight 96.818, kg, PRN Pain Score 4-6, Start date: 06/08/18 8:34:00 VASCULAR TECHNOLOGIST, Duration: 5 doses or times, Stop date: Limited # of times Inactive 06/08/2018 [facility] Hydromorphone 0.5 mg, Route: IVP, Q5Min, Dosing Weight 96.818, kg, PRN Pain Score 7-10, Start date: 06/08/18 8:34:00 VASCULAR TECHNOLOGIST, Duration: 4 doses or times, Stop date: Limited # of times Inactive 06/08/2018 [facility] Naloxone 0.4 mg, Route: IVP, Q2MIN, Dosing Weight 96.818, kg, PRN Narcotic Reversal, Start date: 06/08/18 8:34:00 VASCULAR TECHNOLOGIST, Duration: 8 doses or times, Stop date: Limited # of times Inactive 06/08/2018 [facility] Flumazenil 0.2 mg, Route: IVP, PRN, Dosing Weight 96.818, kg, PRN Benzodiazepine Reversal, Initial dose, Start date: 06/08/18 8:34:00 VASCULAR TECHNOLOGIST, Duration: 30 day, Stop date: 07/08/18 8:33:00 VASCULAR TECHNOLOGIST Inactive 06/08/2018 [facility] Labetalol 10 mg, Route: IVP, Q5Min, Dosing Weight 96.818, kg, PRN Elevated BP, Start date: 06/08/18 8:34:00 VASCULAR TECHNOLOGIST, Duration: 5 doses or times, Stop date: Limited # of times Inactive 06/08/2018 [facility] ropivacaine Route: NERVE BLOCK, Start date: 06/08/18 8:32:00 VASCULAR TECHNOLOGIST 400 mL, Drug Form: INJ, Dosing Weight 96.818, kg, Duration: 30 day, Stop date: 07/08/18 8:31:00 VASCULAR TECHNOLOGIST, 6 ml/hrNotes: Final concentration: Ropivacaine 0.2% 400 ml No Longer Active 06/08/2018 [facility] tranexamic acid (ANES) 100 mg Route: IV, Drug form: INJ, Start date: 06/08/18 8:20:00 VASCULAR TECHNOLOGIST, Stop date: 06/08/18 9:20:00 VASCULAR TECHNOLOGIST Inactive 06/08/2018 [facility] propofol (ANES) 10 mg Route: IV, Drug form: INJ, Start date: 06/08/18 8:12:00 VASCULAR TECHNOLOGIST, Stop date: 06/08/18 9:12:00 VASCULAR TECHNOLOGIST Inactive 06/08/2018 [facility] Lactated Ringers Injection IV (ANES) 1000 mL Route: IV, Total Volume: 1,000, Start date: 06/08/18 8:00:00 VASCULAR TECHNOLOGIST, Stop date: 06/08/18 9:00:00 VASCULAR TECHNOLOGIST Inactive 06/08/2018 [facility] vancomycin (ANES) 1.5 gm Route: IV, Drug form: INJ, Start date: 06/08/18 7:45:00 VASCULAR TECHNOLOGIST, Stop date: 06/08/18 8:45:00 VASCULAR TECHNOLOGIST Inactive 06/08/2018 [facility] Cyklokapron + Sodium Chloride 0.9% IV 100 mL 1,000 mg, 10 mL, Route: IVPB, ONCALL, Start date: 06/07/18 23:00:00 VASCULAR TECHNOLOGIST, Duration: 2 doses or timesNotes: (Same As: Cyklokapron) No Longer Active 06/08/2018 [facility] vancomycin 1.5 gm, 250 mL, Route: IVPB, Drug form: INJ, ONCALL, Start date: 06/07/18 23:00:00 VASCULAR TECHNOLOGIST, Duration: 21 hr, Stop date: 06/08/18 19:59:00 VASCULAR TECHNOLOGIST, ABX Indication: Surgical ProphylaxisNotes: TIME CRITICAL MEDICA TION Same as: Vancocin-NS (premixed) Infusion rate 2001 mg: infuse over 2.5 hours No Longer Active 06/08/2018 [facility] ceFAZolin + sterile water 20 mL 2 gm, Route: IV, ONCALL, Start date: 06/07/18 23:00:00 VASCULAR TECHNOLOGIST, Duration: 21 hr, Stop date: 06/08/18 19:59:00 VASCULAR TECHNOLOGIST, ABX Indication: Surgical ProphylaxisNotes: (Same As: Clover Hauser) MEDICATION WASTE Product Size: 1000 mg Product Wasted: ___ mg No Longer Active 06/08/2018 [facility] Celexa 100 mg, PO, Bedtime, 0 Refill(s) Active 05/12/2018 [facility] pregabalin 150 MG Oral Capsule [Lyrica] 150 mg=1 cap, PO, TID, 0 Refill(s) Active 05/12/2018 [facility] Acetaminophen 325 MG / Hydrocodone Bitartrate 10 MG Oral Tablet 1 tab, PO, Q6H, for break through pain only and not to be taking at tthe same of oxycontin, 0 Refill(s) Active 05/12/2018 [facility] Metronidazole (Flagyl) 500 Mg Tablet, 500 Mg Oral Three Times A Day Active 04/15/2014 [facility] Amlodipine Besylate (Norvasc) 2.5 Mg Tablet, Mg Oral as needed for Daily Active 02/10/2014 [facility] Cyclobenzaprine Hcl (Flexeril) 5 Mg Tablet, 5 Mg Oral Qhs Active 02/10/2014 [facility] Diclofenac Sodium 75 Mg Tablet.dr, 75 Mg Oral Bid Prn Active 02/10/2014 [facility] Duloxetine Hcl (Cymbalta) 30 Mg Capsule., 30 Mg Oral Twice A Day Active 02/10/2014 [facility] Folic Acid 1 Mg Tablet, Active 02/10/2014 [facility] Gabapentin (Neurontin) 300 Mg Capsule, 300 Mg Oral Twice A Day Active 02/10/2014 [facility] Hydrocodone Bit/Acetaminophen (Veneta 5-325 Tablet) 1 Each Tablet, 1 Mg Oral Every 6-8 Hours as needed for Pain Active 02/10/2014 [facility] Omeprazole 20 Mg Capsule., 1 Tab Oral Daily Active 03/26/2012 [facility] Ondansetron Hcl (Zofran) 4 Mg Tablet, 1 Tab Oral As Needed Active 03/26/2012 [facility] Smz/Tmp , 1 Mg Oral Active 03/26/2012 [facility] Sumatriptan Succinate 50 Mg Tablet, 1 Tab Oral Every Two Hours Active 03/26/2012 [facility] Amlodipine Besylate/Benazepril (Amlodipine-Benazepril 2.5-10) 1 Each Capsule Daily Active [facility] Allergies, Adverse Reactions, Alerts Substance Category Reaction Severity Reaction type Status Date Reported Comments Source ciprofloxacin HCl Mild Allergy to Substance Active 09/10/2015 [facility] Ciprofloxacin Mild Allergy to Substance Active 09/10/2015 [facility] ciprofloxacin Assertion Drug allergy Active [facility] Food Shrimp Assertion Drug allergy Active [facility] traMADol Assertion Drug allergy Active [facility] Immunizations No Data Provided for This Section Results Order Name Results Value Reference Range Date Interpretation Comments Source HEMATOLOGY Eosinophils # 0.1 0.0 - 0.5 06/10/2018 [facility] HEMATOLOGY Basophils # 0.2 0.0 - 0.2 06/10/2018 [facility] HEMATOLOGY Segs 58.5 45.0 - 75.0 06/10/2018 [facility] HEMATOLOGY Lymphocytes 30.1 20.0 - 40.0 06/10/2018 [facility] HEMATOLOGY Monocytes 9.7 2.0 - 12.0 06/10/2018 [facility] HEMATOLOGY Eosinophils 0.7 0.0 - 4.0 06/10/2018 [facility] HEMATOLOGY Lymphocytes # 5.2 1.0 - 5.5 06/10/2018 [facility] HEMATOLOGY Monocytes # 1.7 0.0 - 0.8 06/10/2018 [facility] HEMATOLOGY Basophils 1.0 0.0 - 1.0 06/10/2018 [facility] HEMATOLOGY Neutrophils # 10.1 1.5 - 8.1 06/10/2018 [facility] HEMATOLOGY MCV 88.1 80.0 - 98.0 06/10/2018 [facility] HEMATOLOGY MCH 28.9 27.0 - 31.0 06/10/2018 [facility] HEMATOLOGY Hct 40.1 36.0 - 48.0 06/10/2018 [facility] HEMATOLOGY MCHC 32.8 32.0 - 36.0 06/10/2018 [facility] HEMATOLOGY RDW 15.6 11.5 - 14.5 06/10/2018 [facility] HEMATOLOGY MPV 9.1 7.4 - 10.4 06/10/2018 [facility] HEMATOLOGY Platelet 299 133 - 450 06/10/2018 [facility] HEMATOLOGY RBC 4.55 4.20 - 5.40 06/10/2018 [facility] HEMATOLOGY WBC 17.3 3.7 - 10.4 06/10/2018 [facility] HEMATOLOGY Hgb 13.1 12.0 - 16.0 06/10/2018 [facility] HEMATOLOGY MCV 88.0 80.0 - 98.0 06/09/2018 [facility] HEMATOLOGY MCH 28.7 27.0 - 31.0 06/09/2018 [facility] HEMATOLOGY MCHC 32.6 32.0 - 36.0 06/09/2018 [facility] HEMATOLOGY RDW 15.6 11.5 - 14.5 06/09/2018 [facility] HEMATOLOGY Platelet 302 133 - 450 06/09/2018 [facility] HEMATOLOGY MPV 9.3 7.4 - 10.4 06/09/2018 [facility] HEMATOLOGY WBC 21.0 3.7 - 10.4 06/09/2018 [facility] HEMATOLOGY RBC 4.19 4.20 - 5.40 06/09/2018 [facility] HEMATOLOGY Hgb 12.0 12.0 - 16.0 06/09/2018 [facility] HEMATOLOGY Hct 36.9 36.0 - 48.0 06/09/2018 [facility] HEMATOLOGY Monocytes # 1.7 0.0 - 0.8 06/09/2018 [facility] HEMATOLOGY Segs 70.9 45.0 - 75.0 06/09/2018 [facility] HEMATOLOGY Eosinophils 0.1 0.0 - 4.0 06/09/2018 [facility] HEMATOLOGY Lymphocytes 20.9 20.0 - 40.0 06/09/2018 [facility] HEMATOLOGY Monocytes 7.9 2.0 - 12.0 06/09/2018 [facility] HEMATOLOGY Lymphocytes # 4.4 1.0 - 5.5 06/09/2018 [facility] HEMATOLOGY Basophils 0.2 0.0 - 1.0 06/09/2018 [facility] HEMATOLOGY Neutrophils # 14.9 1.5 - 8.1 06/09/2018 [facility] REFERENCE LAB RESULTS [facility] COMMENT 05/23/2018 Result Comment:
Test Ordered: [id number] Nicotine+Cotinine+Anabasine
Nicotine Note: ng/mL BN
None Detected
This test was developed and its performance characteristics
determined by [facility]. It has not been cleared or
approved by the Food and Drug Administration.
Cotinine 11 ng/mL BN
This test was developed and its performance characteristics
determined by [facility]. It has not been cleared or
approved by the Food and Drug Administration.
Anabasine Note: ng/mL BN
None Detected
Nicotine levels greater than 100 ng/mL, cotinine levels
greater than 200 ng/mL and anabasine levels greater than 10
ng/mL are consistent with active tobacco product use.

This test was developed and its performance characteristics
determined by [facility]. It has not been cleared or approve
by the Food and Drug Administration.<b r/>Performed At: [facility]
[address], [place] [id number]
Reji Cooper MD Ph:[phone] [facility] BACTERIAL - SEROLOGY MRSA by PCR Negative (05/11/18 1:48 PM) 05/11/2018 [facility] CHEM PANEL B/C Ratio 12 6 - 25 05/11/2018 [facility] CHEM PANEL AGAP 13.6 10.0 - 20.0 05/11/[address] [facility] [employer] CHEM PANEL A/G Ratio 0.9 0.7 - 1.6 05/11/2018 [employer] CHEM PANEL Globulin 3.9 2.7 - 4.2 05/11/[address] [facility] [employer] CHEM PANEL eGFR 95 05/11/2018 Result Comment: The eGFR is calculated using the CKD-EPI formula. In most young, healthy individuals the eGFR will be >90 mL/min/1.73m2. The eGFR declines with age. An eGFR of 60-89 may be normal in some populations, particularly the elderly, for whom the CKD-EPI formula has not been extensively validated. Use of the eGFR is not recommended in the following populations:

Individuals with unstable creatinine concentrations, including patients and those with serious co-morbid conditions.

Patients with extremes in muscle mass or diet.

The data above are obtained from the National Kidney Disease Education Program (NKDEP) which additionally recommends that when the eGFR is used in patients with extremes of body mass index for purposes of drug dosing, the eGFR should be multiplied by the estimated BMI. [employer] CHEM PANEL Creatinine Lvl 0.76 0.50 - 1.40 05/11/2018 [employer] CHEM PANEL AST 28 0 - 37 05/11/2018 [employer] CHEM PANEL ALT 30 0 - 65 05/11/2018 [employer] CHEM PANEL Potassium Lvl 3.6 3.5 - 5.1 05/11/2018 [employer] CHEM PANEL Sodium Lvl 140 135 - 145 05/11/2018 [employer] CHEM PANEL BUN 9 7 - 22 05/11/2018 [employer] CHEM PANEL Glucose Lvl 128 70 - 99 05/11/2018 [employer] CHEM PANEL Albumin Lvl 3.4 3.5 - 5.0 05/11/2018 [employer] CHEM PANEL Calcium Lvl 8.8 8.5 - 10.5 05/11/2018 [employer] CHEM PANEL CO2 25 24 - 32 05/11/2018 [employer] CHEM PANEL Chloride Lvl 105 95 - 109 05/11/2018 [employer] CHEM PANEL Total Protein 7.3 6.4 - 8.4 05/11/2018 [employer] CHEM PANEL Alk Phos 82 39 - 136 05/11/2018 [facility] CHEM PANEL Bili Total 0.6 0.2 - 1.3 05/11/2018 [facility] HEMATOLOGY Segs 57.5 45.0 - 75.0 05/11/2018 [facility] HEMATOLOGY Lymphocytes 36.1 20.0 - 40.0 05/11/2018 [facility] HEMATOLOGY Lymphocytes # 5.5 1.0 - 5.5 05/11/2018 [facility] HEMATOLOGY Neutrophils # 8.7 1.5 - 8.1 05/11/2018 [facility] HEMATOLOGY Eosinophils 1.6 0.0 - 4.0 05/11/2018 [facility] HEMATOLOGY Basophils 1.1 0.0 - 1.0 05/11/2018 [facility] HEMATOLOGY Monocytes 3.7 2.0 - 12.0 05/11/2018 [facility] HEMATOLOGY Basophils # 0.2 0.0 - 0.2 05/11/2018 [facility] HEMATOLOGY Eosinophils # 0.2 0.0 - 0.5 05/11/2018 [facility] HEMATOLOGY Monocytes # 0.6 0.0 - 0.8 05/11/2018 [facility] HEMATOLOGY Hct 44.1 36.0 - 48.0 05/11/2018 [facility] HEMATOLOGY RDW 15.6 11.5 - 14.5 05/11/2018 [facility] HEMATOLOGY MCHC 33.8 32.0 - 36.0 05/11/2018 [facility] HEMATOLOGY MCV 85.6 80.0 - 98.0 05/11/2018 [facility] HEMATOLOGY MCH 28.9 27.0 - 31.0 05/11/2018 [facility] HEMATOLOGY Platelet 327 133 - 450 05/11/2018 [facility] HEMATOLOGY MPV 9.2 7.4 - 10.4 05/11/2018 [facility] HEMATOLOGY WBC 15.1 3.7 - 10.4 05/11/2018 [facility] HEMATOLOGY Hgb 14.9 12.0 - 16.0 05/11/2018 [facility] HEMATOLOGY RBC 5.16 4.20 - 5.40 05/11/2018 [facility] HEMATOLOGY PT 12.5 12.0 - 14.7 05/11/2018 [facility] HEMATOLOGY PTT 29.5 22.9 - 35.8 05/11/2018 [facility] HEMATOLOGY INR 0.93 0.85 - 1.17 05/11/2018 [facility] URINE AND STOOL UA Mucus Few /LPF None Seen /LPF 05/11/2018 [facility] URINE AND STOOL UA Bili Negative *NA* (05/11/18 1:48 PM) Negative 05/11/2018 [facility] URINE AND STOOL UA Urobilinogen 2.0 0.1 - 1.0 05/11/2018 [facility] URINE AND STOOL UA Nitrite Negative (05/11/18 1:48 PM) Negative 05/11/2018 [facility] URINE AND STOOL UA Protein Negative (05/11/18 1:48 PM) Negative 05/11/2018 [facility] URINE AND STOOL UA Glucose Negative *NA* (05/11/18 1:48 PM) Negative 05/11/2018 [facility] URINE AND STOOL UA Blood Negative (05/11/18 1:48 PM) Negative 05/11/2018 [facility] URINE AND STOOL UA Ketones Trace *ABN* (05/11/18 1:48 PM) Negative 05/11/2018 [facility] URINE AND STOOL Micro? Performed (05/11/18 1:48 PM) 05/11/2018 [facility] URINE AND STOOL UA Leuk Est Negative (05/11/18 1:48 PM) Negative 05/11/2018 [facility] URINE AND STOOL UA WBC <1 0 - 5 05/11/2018 [facility] URINE AND STOOL UA Sq Epi Occasional /LPF Few /LPF 05/11/2018 [facility] URINE AND STOOL UA pH 5.0 5.0 - 8.0 05/11/2018 [facility] URINE AND STOOL UA Spec Grav 1.018 <=1.030 05/11/2018 [facility] URINE AND STOOL UA RBC 1 0 - 2 05/11/2018 [facility] URINE AND STOOL UA Turbidity Clear (05/11/18 1:48 PM) Clear 05/11/2018 [facility] URINE AND STOOL UA Color Yellow *NA* (05/11/18 1:48 PM) Yellow 05/11/2018 [facility] Culture: Urine <10,000 CFU/mL Group B Streptococcus , No susceptibility performed since these organisms are predictably susceptible to penicillin. If patient is penicillin allergic or susceptibility testing for additional antibiotics is clinically warranted please call the laboratory. <10,000 CFU/mL Skin Cathie 05/11/2018 [facility] Automated blood basophil count (count/volume) Automated blood basophil count (count/volume) 0.1 0.0 - 0.1 01/15/2018 [facility] Automated blood basophil count as percentage of total leukocytes Automated blood basophil count as percentage of total leukocytes 0.5 0.0 - 1.0 01/15/2018 [facility] Automated blood eosinophil count Automated blood eosinophil count 0.1 0.0 - 0.4 01/15/2018 [facility] Automated blood eosinophil count as percentage of total leukocytes Automated blood eosinophil count as percentage of total leukocytes 0.9 0.0 - 6.0 01/15/2018 [facility] Automated blood hematocrit (volume fraction) Automated blood hematocrit (volume fraction) 44.2 34.2 - 44.1 01/15/2018 [facility] Automated blood lymphocyte count as percentage ot total leukocytes Automated blood lymphocyte count as percentage ot total leukocytes 25.2 18.0 - 39.1 01/15/2018 [facility] Automated blood monocyte count as percentage of total leukocytes Automated blood monocyte count as percentage of total leukocytes 7.6 4.4 - 11.3 01/15/2018 [facility] Automated blood neutrophil count Automated blood neutrophil count 9.6 2.1 - 6.9 01/15/2018 [facility] Automated blood platelet count (count/volume) Automated blood platelet count (count/volume) 233 140 - 360 01/15/2018 [facility] Automated blood segmented neutrophil count as percentage of total leukocytes Automated blood segmented neutrophil count as percentage of total leukocytes 65.1 38.7 - 80.0 01/15/2018 [facility] Automated erythrocyte mean corpuscular hemoglobin (mass per erythrocyte) Automated erythrocyte mean corpuscular hemoglobin (mass per erythrocyte) 29.0 28 - 32 01/15/2018 [facility] Automated erythrocyte mean corpuscular hemoglobin concentration measurement (mass/volume) Automated erythrocyte mean corpuscular hemoglobin concentration measurement (mass/volume) 33.9 31 - 35 01/15/2018 [facility] Automated erythrocyte mean corpuscular volume Automated erythrocyte mean corpuscular volume 85.5 81 - 99 01/15/2018 [facility] Automated urine sediment leukocyte count by microscopy (number/high power field) Automated urine sediment leukocyte count by microscopy (number/high power field) <20 0 - 5 01/15/2018 [facility] Bacteria detection in urine sediment by light microscopy Bacteria detection in urine sediment by light microscopy FEW NONE 01/15/2018 [facility] Blood erythrocytes automated count (number/volume) Blood erythrocytes automated count (number/volume) 5.17 3.6 - 5.1 01/15/2018 [facility] Blood hemoglobin measurement (moles/volume) Blood hemoglobin measurement (moles/volume) 15.0 12.0 - 16.0 01/15/2018 [facility] Blood leukocytes automated count (number/volume) Blood leukocytes automated count (number/volume) 14.75 4.8 - 10.8 01/15/2018 [facility] Blood lymphocytes count (number/volume) Blood lymphocytes count (number/volume) 3.7 1.0 - 3.2 01/15/2018 [facility] Blood monocytes automated count (number/volume) Blood monocytes automated count (number/volume) 1.1 0.2 - 0.8 01/15/2018 [facility] Epithelial cells detection in urine sediment by light microscopy Epithelial cells detection in urine sediment by light microscopy MODERATE NONE 01/15/2018 [facility] Erythrocytes detection in urine sediment by light microscopy Erythrocytes detection in urine sediment by light microscopy <20 0 - 5 01/15/2018 [facility] Estimated glomerular filtration rate (GFR) determination Estimated glomerular filtration rate (GFR) determination >60 60 01/15/2018 [facility] Glucose measurement Glucose measurement 96 74 - 118 01/15/2018 [facility] Plasma globulin measurement (mass/volume) Plasma globulin measurement (mass/volume) 3.4 2.3 - 3.5 01/15/2018 [facility] Serum or plasma alanine aminotransferase measurement (enzymatic activity/volume) Serum or plasma alanine aminotransferase measurement (enzymatic activity/volume) 21 0 - 55 01/15/2018 [facility] Serum or plasma albumin measurement (mass/volume) Serum or plasma albumin measurement (mass/volume) 3.7 3.5 - 5.0 01/15/2018 [facility] Serum or plasma albumin/globulin mass ratio Serum or plasma albumin/globulin mass ratio 1.1 0.8 - 2.0 01/15/2018 [facility] Serum or plasma alkaline phosphatase measurement (enzymatic activity/volume) Serum or plasma alkaline phosphatase measurement (enzymatic activity/volume) 51 40 - 150 01/15/2018 [facility] Serum or plasma amylase measurement (enzymatic activity/volume) Serum or plasma amylase measurement (enzymatic activity/volume) 73 25 - 125 01/15/2018 [facility] Serum or plasma anion gap Serum or plasma anion gap 14.5 8 - 16 01/15/2018 [facility] Serum or plasma calcium measurement (mass/volume) Serum or plasma calcium measurement (mass/volume) 9.6 8.4 - 10.2 01/15/2018 [facility] Serum or plasma carbon dioxide, total measurement (moles/volume) Serum or plasma carbon dioxide, total measurement (moles/volume) 23 22 - 29 01/15/2018 [facility] Serum or plasma chloride measurement (moles/volume) Serum or plasma chloride measurement (moles/volume) 102 98 - 107 01/15/2018 [facility] Serum or plasma creatinine measurement (mass/volume) Serum or plasma creatinine measurement (mass/volume) 0.75 0.57 - 1.11 01/15/2018 [facility] Serum or plasma lipase measurement (enzymatic activity/volume) Serum or plasma lipase measurement (enzymatic activity/volume) 115 8 - 78 01/15/2018 [facility] Serum or plasma potassium measurement (moles/volume) Serum or plasma potassium measurement (moles/volume) 3.5 3.5 - 5.1 01/15/2018 [facility] Serum or plasma protein measurement (mass/volume) Serum or plasma protein measurement (mass/volume) 7.1 6.5 - 8.1 01/15/2018 [facility] Serum or plasma sodium measurement (moles/volume) Serum or plasma sodium measurement (moles/volume) 136 136 - 145 01/15/2018 [facility] Serum or plasma total bilirubin measurement (mass/volume) Serum or plasma total bilirubin measurement (mass/volume) 0.4 0.2 - 1.2 01/15/2018 [facility] Serum or plasma urea nitrogen measurement (mass/volume) Serum or plasma urea nitrogen measurement (mass/volume) 9 7 - 26 01/15/2018 [facility] Serum or plasma urea nitrogen/creatinine mass ratio Serum or plasma urea nitrogen/creatinine mass ratio 12 6 - 25 01/15/2018 [facility] Specific gravity of Urine by Test strip Specific gravity of Urine by Test strip 1.010 1.010 - 1.025 01/15/2018 [facility] Urine clarity Urine clarity CLOUDY CLEAR 01/15/2018 [facility] Urine color determination Urine color determination YELLOW YELLOW 01/15/2018 [facility] Urine erythrocytes detection Urine erythrocytes detection 2+ NEGATIVE 01/15/2018 [facility] Urine glucose detection Urine glucose detection NEGATIVE NEGATIVE 01/15/2018 [facility] Urine human chorionic gonadotropin (hCG) detection Urine human chorionic gonadotropin (hCG) detection NEGATIVE NEGATIVE 01/15/2018 [facility] Urine ketones detection by automated test strip Urine ketones detection by automated test strip 2+ NEGATIVE 01/15/2018 [facility] Urine leukocyte esterase detection by dipstick Urine leukocyte esterase detection by dipstick 1+ NEGATIVE 01/15/2018 [facility] Urine nitrite detection Urine nitrite detection NEGATIVE NEGATIVE 01/15/2018 [facility] Urine pH measurement by automated test strip Urine pH measurement by automated test strip 6 5 - 7 01/15/2018 [facility] Urine protein measurement by test strip (mass/volume) Urine protein measurement by test strip (mass/volume) NEGATIVE NEGATIVE 01/15/2018 [facility] Urine total bilirubin measurement (mass/volume) Urine total bilirubin measurement (mass/volume) NEGATIVE NEGATIVE 01/15/2018 [facility] Urine urobilinogen measurement by test strip (mass/volume) Urine urobilinogen measurement by test strip (mass/volume) 0.2 0.2 - 1 01/15/2018 [facility] Red Cell Distribution Width 14.6 11.7 - 14.4 01/15/2018 [facility] IM GRANULOCYTES % 0.7 0.0 - 1.0 01/15/2018 [facility] Absolute Immature Granulocyte (auto 0.10 0 - 0.1 01/15/2018 [facility] Aspartate Amino Transf (AST/SGOT) 23 5 - 34 01/15/2018 [facility] Influenza virus A and B antigen identification by immunofluorescence Influenza virus A and B antigen identification by immunofluorescence NEGATIVE NEGATIVE 09/18/2017 [facility] Pathology Reports No Data Provided for This Section Diagnostic Reports Report Value Date Source Knee 1-2 Views unilateral DX CLINICAL HISTORY: - post op AGE: 48 years GENDER: Female TECHNIQUE: Right knee radiographs, 2 views. COMPARISON: 06/08/2018 FINDINGS: Postoperative changes from right total knee arthroplasty are noted. There is no evidence of fracture or malalignment. Expected soft tissue swelling is seen about the knee. IMPRESSION: Postoperative changes from right total knee arthroplasty without evidence of complication. 06/09/2018 [facility] Knee 1-2 Views unilateral DX CLINICAL HISTORY: Joint deformities - s/p R TKA AGE: 48 years GENDER: Female TECHNIQUE: Right knee radiographs, 2 views. COMPARISON: None FINDINGS: Postoperative changes from right total knee arthroplasty are noted. There is no evidence of fracture or malalignment. Expected soft tissue swelling is seen about the knee. IMPRESSION: Postoperative changes from right total knee arthroplasty without evidence of complication. 06/08/2018 [facility] Consultation Notes No Data Provided for This Section Discharge Summaries No Data Provided for This Section History and Physicals No Data Provided for This Section Vital Signs Vital Sign Value Date Comments Source Heart Rate 85 06/11/2018 [facility] Temperature Oral (F) 98.3 F 06/11/2018 [facility] Respitory Rate 16 06/11/2018 [facility] Systolic (mm Hg) 142 06/11/2018 [facility] Diastolic (mm Hg) 82 06/11/2018 [facility] Systolic (mm Hg) 130 06/11/2018 [facility] Diastolic (mm Hg) 81 06/11/2018 [facility] Respitory Rate 18 06/11/2018 [facility] Heart Rate 99 06/11/2018 [facility] Temperature Oral (F) 98.7 F 06/11/2018 [facility] Heart Rate 76 06/11/2018 [facility] Systolic (mm Hg) 110 06/11/2018 [facility] Diastolic (mm Hg) 77 06/11/2018 [facility] Respitory Rate 16 06/11/2018 [facility] Temperature Oral (F) 98.5 F 06/11/2018 [facility] BMI Calculated 39.05 06/08/2018 [facility] Weight 100 06/08/2018 [facility] Height 160.02 cm 06/08/2018 [facility] Weight 96.818 05/11/2018 [facility] BMI Calculated 37.81 05/11/2018 [facility] Height 160.02 cm 05/11/2018 [facility] Encounters Location Location Details Encounter Type Encounter Number Reason For Visit Attending Provider ADM Date DC Date Status Source Departed Emergency Room [id number] FELI ALEXANDER MD 09/18/2017 09/18/2017 [facility] Departed Emergency Room [id number] FELI ALEXANDER MD 01/15/2018 01/15/2018 [facility] Outpatient [facility] [id number] [place] 04/26/2018 04/27/[facility] In[facility] [id number] [place] 06/08/2018 06/12/2018 [facility] [place] [facility] Patients [id number] [place] 07/10/2018 08/09/2018 [facility] [place] [facility] [place] OP Therapy Patients [id number] [place] 08/21/2018 09/20/2018 [facility] [place] Procedures Procedure Code Date Perfomer Comments Source Computed tomography of abdomen and pelvis with contrast [id number] 01/15/2018 [facility] X-ray of chest, two views [id number] 09/18/2017 [facility] Procedure<sup>1</sup> [id number] Rotator cuff ear [facility] [place] Tonsillectomy [id number] [facility] Procedure<sup>1</sup> [id number] Rotator cuff ear [facility] Tonsillectomy [id number] [facility] Procedure<sup>1</sup> [id number] Rotator cuff ear [facility] Tonsillectomy [id number] [facility] Assessment and Plan Assessment and Plan Date Source Extracted from:Title: Orthopedic surgery Author: Yordy Mae MD Date: 06/10/18 Progress Note - Daily [facility] Completed: Jun, 19:42 by Yordy Mae MD RM: [id number] - 00, [id number] MARTINEZ 48y (: 1970) F Attending: [place] MD Service: Orthopedic Reason for Admission: [address]9210, [id number] RIGHT KNEE OSTEOARTHRITIS Working DRG: Code status: None Specified=FULL CODE Current diet: Isolation: No Isolation/Standard Precautions Allergies: traMADol, Food Shrimp, ciprofloxacin SUBJECTIVE Pain improved after compression stocking removed Some nausea, no vomiting Pain 5-6/10 on evaluation both in thigh and perkins OBJECTIVE Sutures in tibia, nylon, no draiange Dermabond tapein place with good closure, no drainage Mild serous bullae distally, non concerning no erythema, no cellulitis, no drainage from any wound Soft thigh and leg compartments EHL/TA 5/5 on MMT Sensation distally L3-L5 symmetric to left on light touch 24hr Labs 06/10 1650 WBC 17.3 H RBC 4.55 Hgb 13.1 Hct 40.1 MCV 88.1 MCH 28.9 MCHC 32.8 RDW 15.6 H Platelet 299 MPV 9.1 Segs 58.5 Monocytes 9.7 Lymphocytes 30.1 Eosinophils 0.7 Basophils 1.0 Segs-Bands # 10.1 H Lymphocytes # 5.2 Monocytes # 1.7 H Eosinophils # 0.1 Basophils # 0.2 Meza still necessary (Yes/No): Line still necessary (Yes/No): Vitals Tmp(F) Pulse BP RR SpO2 FIO2 06/10 16:00 100.6 102 131/85 18 100 --- 06/10 12:00 98.6 92 138/87 17 97 --- 06/10 08:00 98.3 98 118/80 17 100 --- 06/10 04:00 98.3 73 121/80 18 96 --- 06/10 00:00 98.5 77 107/70 18 98 --- 24 Hr Tmax: 100.6F (38.11c) at 06/10 16:00 Vital Signs are the last 5 in the past 48 hours. Date Wt(kg) Wt(lb) Ht(cm) Ht(in) Method 06/08 100.00 220.00 160.02 63.00 Pallavi/Sta 05/11 (initial) 96.82 213.00 160.02 63.00 Measured I&O Record In Out Bal 06/10 24hr Tot 963 0 963 06/09 24hr Tot 1973 0 1973 Medications (25) Active Scheduled Meds (9): 06/08/18 acetaminophen 1,000 mg PO Q6H 06/08/18 aspirin 325 mg PO Q12H 06/08/18 docusate 100 mg PO BID 06/11/18 gabapentin (gabapentin 300 mg oral capsule) 300 mg PO Daily 06/08/18 mupirocin topical 1 appl NASAL Q12H 06/11/18 naproxen 500 mg PO BID 06/10/18 oxyCODONE (oxyCONTIN) 20 mg PO Q12H 06/11/18 pantoprazole (Protonix) 40 mg PO Before Dinner 06/08/18 pregabalin 150 mg PO TID Unscheduled Meds: None PRN Meds (11): 06/08/18 Al hydroxide/Mg hydroxide/simethicone (Al hydroxide/Mg hydroxide/simethicone 200 mg-200 mg-20 mg/5 mL oral suspension) 30 mL PO Q4H 06/08/18 Sodium Chloride 0.9% IV 25 mL IV PRN 06/08/18 diphenhydrAMINE 12.5 mg PO Q6H 06/08/18 melatonin 3 mg PO Bedtime 06/09/18 methocarbamol (Robaxin) 500 mg PO TID 06/10/18 naloxone 0.4 mg IVP Q2MIN 06/08/18 ondansetron 4 mg IVP Q8H 06/08/18 oxyCODONE (oxyCODONE 5 mg immediate release) 5 mg PO Q4H 06/08/18 sodium chloride (BD Normal Saline Flush) 5 mL IV PRN 06/08/18 sodium chloride (BD Normal Saline Flush) 10 mL IV PRN 06/08/18 tizanidine 2 mg PO Q6H One Time Meds (3): 06/10/18 (Ordered) ketOROLAC 30 mg IVP ONCE 06/09/18 (Completed) lidocaine topical (Lidoderm 5% topical film (patch)) 1 patch TOP ONCE 06/09/18 (Completed) methocarbamol + Dextrose 5% in Water IV 100 mL (Robaxin + Dextrose 5% in Water IV 100 mL) 500 mg IV ONCE 210 ml/hr Continuous Infusions (2): 06/08/18 Sodium Chloride 0.45% IV 1,000 mL (1/ NS 1,000 mL) 1,000 mL 75 ml/hr 06/10/18 ropivacaine 400 mL (ropivacaine 0.2% in NS - site 1 400 mL) 400 mL 8 ml/hr ASSESSMENT and EXAM Dx. Rt knee DJD POD #2 following left TKR, concerns for pain have kept her in hospital. She has pain at tourniquet site and along the lateral aspect of the knee. All normal following arthroplasty. I will recommend some changes to her medication regimen to attemtp and improve her pain control. Her adductor block catheter was removed as it was leaking, this may be contributing to her increased pain as well. Leukocytosis is at its baseline as her WBC was at 15 in Nov preop clinic labs. Mild elevation in temp this aftenoon most likely secondary to atelectasis, inc spirometry recommended. PLAN and TREATMENT Change NSAIDs to Naproxen bid and DC Celebrex Change Aspirin to 81mg PO bid continue lyrica Toradol IV once and protonix Out of bed tomorrow morning with PT, WBAT walker Okay to discharge home tomorrow on recommended regimen 06/12/2018 [facility] Plan of Care Plan of Care Date Source Discharge Date 01/15/18 6:40pm Disposition HOME, SELF-CARE Condition at Discharge Stable Instructions/Education Provided Abdominal Pain - Adult Urinary Tract Infection - Women Forms Provided Work/School Excuse Prescriptions See Medication Section Additional Instructions/Education DRINK PLEANTY OF FLUIDS TAKE ALL MEDICATIONS PRESCRIBED, FOLLOW UP WITH YOUR FAMILY 01/15/2018 [facility] Social History Social History Date Source Social History TypeResponse Smoking Status Former smoker; Previous treatment: None; Exposure to Tobacco Smoke None; Cigarette Smoking Last 365 Days No; Reg Smoking Cessation Counseling No1 entered on: 06/08/18 1Patient said she just quit smoking 2 days ago, on Chantix. 06/08/2018 [facility] [place] Social History TypeResponse Smoking Status Former smoker; Previous treatment: None; Exposure to Tobacco Smoke None; Cigarette Smoking Last 365 Days No; Reg Smoking Cessation Counseling No1 entered on: 06/08/18 1Patient said she just quit smoking 2 days ago, on Chantix. 06/08/2018 [facility] Social History TypeResponse Smoking Status Former smoker; Previous treatment: None; Exposure to Tobacco Smoke None; Cigarette Smoking Last 365 Days No; Reg Smoking Cessation Counseling No1 entered on: 06/08/18 1Patient said she just quit smoking 2 days ago, on Chantix. 06/08/2018 [facility] Social History Problem Response Recorded Date/Time Onset Date Status Hx Psychiatric Problems No 02/11/2014 9:46pm Not Applicable Not Applicable Hx Eating Disorder No 02/11/2014 9:46pm Not Applicable Not Applicable Hx Substance Use Disorder No 02/11/2014 9:46pm Not Applicable Not Applicable Hx Depression No 02/11/2014 9:46pm Not Applicable Not Applicable Hx Alcohol Use No 02/11/2014 9:46pm Not Applicable Not Applicable Hx Substance Use Treatment No 02/11/2014 9:46pm Not Applicable Not Applicable Hx Physical Abuse No 02/11/2014 9:46pm Not Applicable Not Applicable Smoking Status Start Date Stop Date Current every day smoker 01/15/2018 [facility] Family History No Data Provided for This Section Advance Directives Order Name Results Value Date Source Advance Directives Advance Directives Directive Response Recorded Date/Time Does the patient have an advance directive? No 02/11/14 9:46pm If yes, is advance directive on file with [facility]? No 02/11/14 9:46pm If not on file with [facility] will patient provide a copy? Yes 09/10/15 6:37pm Do you have a Directive to Physician? No 01/15/18 1:37pm Do you have a Medical Power of Family Court Counsellor? No 01/15/18 1:37pm Do you have an out of hospital Do Not Resuscitate Order? No 01/15/18 1:37pm Do you have any special needs we should be aware of? No 01/15/18 1:37pm Do you have a support person here with you today? No 01/15/18 1:37pm Did patient receive Notice of Privacy Practices? Yes 01/15/18 1:37pm Did patient receive patient rights and responsibilities? Yes 01/15/18 1:37pm 01/15/2018 [facility] Functional Status No Data Provided for This Section
--- OUTSIDE RECORDS SUMMARY | 2019-01-23 14:21 | XMS REPORT | Clinical Summary ---
Author Author [facility] [employer] Organization [facility] Address Unknown Phone Unavailable Care Team Providers Care Slaughterer Religious Ritual Name Role Phone Uriel Chin MD PCP Unavailable Allergies Comments Active Allergy Reactions Severity Noted Date Ciprofloxacin Anaphylaxis High 01/22/2016 Shrimp Hives 01/22/2016 Medications End Date Status Medication Sig Dispensed Refills Start Date Active pantoprazole (PROTONIX) Take 40 mg by 0 40 MG tablet mouth daily. Active ondansetron (ZOFRAN) 4 MG Take 4 mg by 0 tablet mouth 2 (two) times daily as needed for Nausea. Active traMADol (ULTRAM) 50 mg Take 1 tablet 10 tablet 0 tablet (50 mg total) 8 by mouth every 6 (six) hours as needed for up to 10 doses. Max Daily Amount: 200 mg Active ondansetron (ZOFRAN-ODT) Take 1 tablet 10 tablet 0 201 4 MG disintegrating (4 mg total) 8 tablet by mouth every 8 (eight) hours as needed for up to 10 doses. Active Problems Problem Noted Date Fatty liver disease, nonalcoholic 03/03/2016 Abnormal liver enzymes 03/03/2016 Abnormal finding on imaging 03/03/2016 Abdominal pain 03/03/2016 [place] (nonalcoholic steatohepatitis) 01/28/2016 UTI (urinary tract infection) 01/28/2016 Proctocolitis 01/25/2016 SIRS (systemic inflammatory response syndrome) 01/25/2016 Fever and chills 01/24/2016 Family History Medical History Relation Name Comments Hypertension Brother Cancer Father Liver disease Mother Diabetes Sister Hypertension Sister Relation Name Status Comments Brother Father Mother Sister Social History Date Tobacco Use Types Packs/Day Years Used Current Every Day Smoker Cigarettes Smokeless Tobacco: Never Used Tobacco Cessation: Ready to Quit: No Alcohol Use Drinks/Week oz/Week Comments No Sex Assigned at Date Recorded Not on file Industry Job Start Date Occupation Not on file Not on file Not on file Travel End Travel History Travel Start No recent travel history available. Last Filed Vital Signs Not on file Plan of Treatment Not on file Results Not on fileafter 01/22/2018 Insurance Payer Benefit Subscriber ID Type Phone Address Plan / Group [facility] [place] HMO xxxxxxxxx HMO/POS CARE POS SELECT CHOICE Advance Directives For more information, please contact: [phone] [place] [address] Date Inactivated Comments Code Status Date Activated 02/28/2016 2:15 AM Full Code 02/27/2016 8:41 PM This code status was determined by: Patient 01/28/2016 8:51 PM Full Code 01/24/2016 11:16 PM This code status was determined by: Patient 01/24/2016 11:16 PM Full Code 01/24/2016 4:42 PM This code status was determined by: Patient
--- OUTSIDE RECORDS SUMMARY | 2019-01-23 14:22 | XMS REPORT | Summary of Care ---
Author Author [facility] Organization [facility] Address Unknown Phone Unavailable Encounter HQ Dorene(NAPOLEON) [id number] Date(s): 06/08/18 - 06/11/18 [id number] [place] [address]- Encounter Diagnosis Unilateral primary osteoarthritis, right knee (Final) - 06/15/18 Other complications of foreign body accidentally left in body following surgical operation, initial encounter (Final) - Pain in left leg (Final) - Discharge Disposition: Home or Self Care Attending Physician: Clifton Bay MD Admitting Physician: Clifton Bay MD Referring Physician: Clifton Bay MD Vital Signs 1 2 3 Most recent to oldest [Reference Range]: 160.02 cm (06/08/18 1:07 PM) 160.02 cm (05/11/18 1:39 PM) Height 98.3 DegF (06/11/18 4:00 PM) 98.7 DegF (06/11/18 8:12 AM) 98.5 DegF (06/11/18 4:00 AM) Temperature Oral [96.4-99.1 DegF] 142/82 mmHg *HI* (06/11/18 4:00 PM) 130/81 mmHg (06/11/18 12:00 PM) 110/77 mmHg (06/11/18 8:12 AM) Blood Pressure [90-140/60-90 mmHg] 16 BRMIN (06/11/18 4:00 PM) 18 BRMIN (06/11/18 12:00 PM) 16 BRMIN (06/11/18 8:12 AM) Respiratory Rate [14-20 BRMIN] 85 bpm (06/11/18 4:00 PM) 99 bpm (06/11/18 12:00 PM) 76 bpm (06/11/18 8:12 AM) Peripheral Pulse Rate [60-100 bpm] 100 kg (06/08/18 1:07 PM) 96.818 kg (05/11/18 1:39 PM) Weight 39.05 m2 (06/08/18 1:07 PM) 37.81 m2 (05/11/18 1:39 PM) Body Mass Index Problem List Condition Effective Dates Status Health Status Informant Osteoarthritis(Confi Active rmed)1 1right knee Allergies, Adverse Reactions, Alerts Substance Reaction Severity Status ciprofloxacin Active Food Shrimp Active traMADol Active Medications 1/2 NS 1,000 mL 1,000 mL, Rate: 75 ml/hr, Infuse over: 13.3 hr, Route: IV, Dosing Weight 96.818 kg, Total Volume: 1,000, Start date: 06/08/18 10:33:00 MEDICAL ECONOMICS CONSULTANT, Duration: 30 day, St op date: 07/08/18 10:32:00 MEDICAL ECONOMICS CONSULTANT, 2.11, m2 Start Date: 06/08/18 Stop Date: 06/11/18 Status: Discontinued acetaminophen 1,000 mg, 2 tab, Route: PO, Drug form: TAB, Q6H, Dosing Weight 96.818, kg, Start date: 06/08/18 14:00:00 MEDICAL ECONOMICS CONSULTANT, Duration: 30 day, Stop date: 07/08/18 8:00:00 MEDICAL ECONOMICS CONSULTANT Notes: Max acetaminophen 4000 mg/day (4 gm/day). (Same as: Tylenol Extra Streng th) Start Date: 06/08/18 Stop Date: 06/11/18 Status: Discontinued acetaminophen 1,000 mg, Route: IVPB, Q6Hnow, Dosing Weight 96.818, kg, Start date: 06/08/18 11 :00:00 MEDICAL ECONOMICS CONSULTANT, Duration: 30 day, Stop date: 07/08/18 5:00:00 MEDICAL ECONOMICS CONSULTANT Start Date: 06/08/18 Stop Date: 06/08/18 Status: Deleted acetaminophen-hydrocodone 325 mg-10 mg oral tablet 1 tab, PO, Q6H, for break through pain only and not to be taking at tthe same of oxycontin, 0 Refill(s) Start Date: 05/11/18 Status: Ordered Al hydroxide/Mg hydroxide/simethicone 200 mg-200 mg-20 mg/5 mL oral suspension 30 mL, Route: PO, Drug Form: SUSP, Dosing Weight 96.818, kg, Q4H, PRN Indigestio n, Start date: 06/08/18 10:36:00 MEDICAL ECONOMICS CONSULTANT, Duration: 30 day, Stop date: 07/08/18 10:3 5:00 MEDICAL ECONOMICS CONSULTANT Notes: (aluminum hydroxide-magnesium hyd-simethicone [phone]/5ml 30 ml ud S US) Start Date: 06/08/18 Stop Date: 06/11/18 Status: Discontinued ANES acetaminophen 1,000 mg, 2 tab, Route: PO, Drug form: TAB, ONCE, Dosing Weight 100, kg, PRN Calvin n Score 1-3, Start date: 06/09/18 7:23:00 MEDICAL ECONOMICS CONSULTANT Notes: Max acetaminophen 4000 mg/day (4 gm/day). (Same as: Tylenol Extra Streng th) Start Date: 06/09/18 Stop Date: 06/09/18 Status: Discontinued ANES diphenhydrAMINE 12.5 mg, 0.25 mL, Route: IVP, Drug form: INJ, Q6H, Dosing Weight 100, kg, PRN It joy, Start date: 06/09/18 7:23:00 MEDICAL ECONOMICS CONSULTANT, Duration: 30 day, Stop date: 07/09/18 7 :22:00 MEDICAL ECONOMICS CONSULTANT Notes: (Same as: Benadryl) Start Date: 06/09/18 Stop Date: 06/09/18 Status: Discontinued ANES Enalaprilat 0.625 mg, 0.5 mL, Route: IVP, Drug form: INJ, Q5Min, Dosing Weight 100, kg, PRN Elevated BP, Start date: 06/09/18 7:23:00 MEDICAL ECONOMICS CONSULTANT, Duration: 4 doses or times, Stop date: Limited # of times Notes: (Same as: Vasotec-IV) Start Date: 06/09/18 Stop Date: 06/09/18 Status: Discontinued ANES flumazenil 0.2 mg, 2 mL, Route: IVP, Drug form: INJ, PRN, Dosing Weight 100, kg, PRN Benzod iazepine Reversal, Initial dose, Start date: 06/09/18 7:23:00 MEDICAL ECONOMICS CONSULTANT, Duration: 30 day, Stop date: 07/09/18 7:22:00 MEDICAL ECONOMICS CONSULTANT Notes: (Same as: Romazicon) Start Date: 06/09/18 Stop Date: 06/09/18 Status: Discontinued ANES flumazenil 0.2 mg, Route: IVP, PRN, Dosing Weight 96.818, kg, PRN Benzodiazepine Reversal, Initial dose, Start date: 06/08/18 8:34:00 MEDICAL ECONOMICS CONSULTANT, Duration: 30 day, Stop date: 12/19 8:33:00 MEDICAL ECONOMICS CONSULTANT Start Date: 06/08/18 Stop Date: 06/08/18 Status: Discontinued ANES hydrALAZINE 10 mg, 0.5 mL, Route: IVP, Drug form: INJ, Q20Min, Dosing Weight 100, kg, PRN El evated BP, Start date: 06/09/18 7:23:00 MEDICAL ECONOMICS CONSULTANT, Duration: 2 doses or times, Stop da te: Limited # of times Start Date: 06/09/18 Stop Date: 06/09/18 Status: Discontinued ANES hydrALAZINE 10 mg, Route: IVP, Q20Min, Dosing Weight 96.818, kg, PRN Elevated BP, Start date : 06/08/18 8:34:00 MEDICAL ECONOMICS CONSULTANT, Duration: 2 doses or times, Stop date: Limited # of time s Start Date: 06/08/18 Stop Date: 06/08/18 Status: Discontinued ANES HYDROmorphone 0.5 mg, Route: IVP, Q5Min, Dosing Weight 100, kg, PRN Pain Score 7-10, Start maria guadalupe e: 06/09/18 7:23:00 MEDICAL ECONOMICS CONSULTANT, Duration: 4 doses or times, Stop date: Limited # of brent es Start Date: 06/09/18 Stop Date: 06/09/18 Status: Completed ANES HYDROmorphone 0.5 mg, Route: IVP, Q5Min, Dosing Weight 96.818, kg, PRN Pain Score 7-10, Start date: 06/08/18 8:34:00 MEDICAL ECONOMICS CONSULTANT, Duration: 4 doses or times, Stop date: Limited # of times Start Date: 06/08/18 Stop Date: 06/08/18 Status: Completed ANES ketOROLAC 30 mg, 1 mL, Route: IVP, Drug form: INJ, ONCE, Dosing Weight 100, kg, Start date : 06/09/18 7:23:00 MEDICAL ECONOMICS CONSULTANT, Stop date: 06/09/18 7:23:00 MEDICAL ECONOMICS CONSULTANT Notes: (Same as:Toradol) IV bolus must be given >15 seconds. Give IM administration slowly and deeply into the muscle.Not for use > 4 days MEDICATION WASTE Product Size: 30 mgProduct Wasted: ___ mg Start Date: 06/09/18 Stop Date: 06/09/18 Status: Completed ANES labetalol 10 mg, 2 mL, Route: IVP, Drug form: INJ, Q5Min, Dosing Weight 100, kg, PRN [place] celio BP, Start date: 06/09/18 7:23:00 MEDICAL ECONOMICS CONSULTANT, Duration: 5 doses or times, Stop date: Limited # of times Start Date: 06/09/18 Stop Date: 06/09/18 Status: Discontinued ANES labetalol 10 mg, Route: IVP, Q5Min, Dosing Weight 96.818, kg, PRN Elevated BP, Start date: 06/08/18 8:34:00 MEDICAL ECONOMICS CONSULTANT, Duration: 5 doses or times, Stop date: Limited # of times Start Date: 06/08/18 Stop Date: 06/08/18 Status: Discontinued ANES meperidine 12.5 mg, 0.25 mL, Route: IVP, Drug form: INJ, Q30Min, Dosing Weight 100, kg, PRN Other -See Comment, For shivering, Start date: 06/09/18 7:23:00 MEDICAL ECONOMICS CONSULTANT, Duration: 2 doses or times, Stop date: Limited # of times Notes: (Same as: Demerol) "Use Precaution in Elderly, Seizure disorders, and Re nal impairment" Start Date: 06/09/18 Stop Date: 06/09/18 Status: Discontinued ANES metoprolol 1 mg, 1 mL, Route: IVP, Drug form: INJ, Q5Min, Dosing Weight 100, kg, PRN Other -See Comment, Start date: 06/09/18 7:23:00 MEDICAL ECONOMICS CONSULTANT, Duration: 5 doses or times, Stop date: Limited # of times Notes: (Same as: Lopressor)Push over 2 minutes Start Date: 06/09/18 Stop Date: 06/09/18 Status: Discontinued ANES metoprolol 1 mg, Route: IVP, Q5Min, Dosing Weight 96.818, kg, PRN Other -See Comment, Start date: 06/08/18 8:34:00 MEDICAL ECONOMICS CONSULTANT, Duration: 5 doses or times, Stop date: Limited # of times Start Date: 06/08/18 Stop Date: 06/08/18 Status: Discontinued ANES midazolam 1 mg, 1 mL, Route: IVP, Drug form: INJ, Q5Min, Dosing Weight 100, kg, PRN Anxiet y, Start date: 06/09/18 7:23:00 MEDICAL ECONOMICS CONSULTANT, Duration: 2 doses or times, Stop date: [place] # of times Notes: (Same as: Versed) MEDICATION WASTE Product Size: 5 mgProduct Was celio: ___ mg Start Date: 06/09/18 Stop Date: 06/09/18 Status: Discontinued ANES morphine Sulfate 2 mg, 0.5 mL, Route: IVP, Drug form: SOLN, Q5Min, Dosing Weight 100, kg, PRN Calvin n Score 4-6, Start date: 06/09/18 7:23:00 MEDICAL ECONOMICS CONSULTANT, Duration: 5 doses or times, Stop date: Limited # of times Notes: (Same as:MORPhine Sulfate) Start Date: 06/09/18 Stop Date: 06/09/18 Status: Discontinued ANES morphine Sulfate 2 mg, Route: IVP, Q5Min, Dosing Weight 96.818, kg, PRN Pain Score 4-6, Start maria guadalupe e: 06/08/18 8:34:00 MEDICAL ECONOMICS CONSULTANT, Duration: 5 doses or times, Stop date: Limited # of brent es Start Date: 06/08/18 Stop Date: 06/08/18 Status: Discontinued ANES naloxone 0.4 mg, 1 mL, Route: IVP, Drug form: INJ, Q2MIN, Dosing Weight 100, kg, PRN Narc otic Reversal, Start date: 06/09/18 7:23:00 MEDICAL ECONOMICS CONSULTANT, Duration: 8 doses or times, Sto p date: Limited # of times Notes: Same as Narcan Start Date: 06/09/18 Stop Date: 06/09/18 Status: Discontinued ANES naloxone 0.4 mg, Route: IVP, Q2MIN, Dosing Weight 96.818, kg, PRN Narcotic Reversal, Star t date: 06/08/18 8:34:00 MEDICAL ECONOMICS CONSULTANT, Duration: 8 doses or times, Stop date: Limited # o f times Start Date: 06/08/18 Stop Date: 06/08/18 Status: Discontinued ANES ondansetron 4 mg, 2 mL, Route: IVP, Drug form: INJ, ONCE, Dosing Weight 100, kg, PRN Nausea & Vomiting, Start date: 06/09/18 7:23:00 MEDICAL ECONOMICS CONSULTANT Notes: (Same as: Zofran) MEDICATION WASTE Product Size: 4 mgProduct Was celio: ___ mg Start Date: 06/09/18 Stop Date: 06/09/18 Status: Discontinued ANES ondansetron 4 mg, Route: IVP, ONCE, Dosing Weight 96.818, kg, PRN Nausea & Vomiting, Start date: 06/08/18 8:34:00 MEDICAL ECONOMICS CONSULTANT Start Date: 06/08/18 Stop Date: 06/08/18 Status: Discontinued ANES promethazine + Sodium Chloride 0.9% IV 50 mL 6.25 mg, 0.25 mL, Route: IVPB, ONCE, Dosing Weight 100, kg, PRN Nausea & Vomiting, Start date: 06/09/18 7:23:00 MEDICAL ECONOMICS CONSULTANT Notes: Do not give IV push. (Same as: Phenergan) Start Date: 06/09/18 Stop Date: 06/09/18 Status: Discontinued aspirin 325 mg, 1 tab, Route: PO, Drug form: TAB, Q12H, Dosing Weight 96.818, kg, For pa tients with risk of bleeding, Start date: 06/08/18 14:59:00 MEDICAL ECONOMICS CONSULTANT, Stop date: 12/19 9:00:00 MEDICAL ECONOMICS CONSULTANT Start Date: 06/08/18 Stop Date: 06/10/18 Status: Discontinued aspirin 325 mg tablet 325 mg=1 tab, PO, Q12H, # 50 tab, 0 Refill(s), Pharmacy: [facility] [id number] [facility] Start Date: 06/08/18 Status: Ordered aspirin 81 mg tablet, enteric coated 81 mg, 1 tab, Route: PO, Drug form: ECTAB, Q12H, Start date: 06/10/18 21:00:[address], Duration: 30 day, Stop date: 07/10/18 9:00:00 MEDICAL ECONOMICS CONSULTANT Notes: Do not crush or chew.(Same As: Ecotrin) Start Date: 06/10/18 Stop Date: 06/11/18 Status: Discontinued BD Normal Saline Flush 10 mL, Route: IV, Drug Form: INJ, PRN, PRN Line Flush, Start date: 06/08/18 13:1 3:00 MEDICAL ECONOMICS CONSULTANT, Duration: 30 day, Stop date: 07/08/18 13:12:00 MEDICAL ECONOMICS CONSULTANT Notes: (Same as: BD Posiflush) Start Date: 06/08/18 Stop Date: 06/11/18 Status: Discontinued BD Normal Saline Flush 5 mL, Route: IV, Drug Form: INJ, PRN, PRN Line Flush, Start date: 06/08/18 13:13 :00 MEDICAL ECONOMICS CONSULTANT, Duration: 30 day, Stop date: 07/08/18 13:12:00 MEDICAL ECONOMICS CONSULTANT Notes: (Same as: BD Posiflush) Start Date: 06/08/18 Stop Date: 06/11/18 Status: Discontinued ceFAZolin (ANES) Route: IV, Drug form: INJ, ONCE, Stop date: 06/09/18 7:48:00 MEDICAL ECONOMICS CONSULTANT Start Date: 06/09/18 Stop Date: 06/09/18 Status: Completed ceFAZolin (ANES) Route: IV, Drug form: INJ, ONCE, Stop date: 06/08/18 8:53:00 MEDICAL ECONOMICS CONSULTANT Start Date: 06/08/18 Stop Date: 06/08/18 Status: Completed ceFAZolin (SCIP) + sterile water 20 mL 2 gm, Route: IVPB, Q6H, Dosing Weight 96.818, kg, Start date: 06/08/18 14:00:00 MEDICAL ECONOMICS CONSULTANT, Duration: 3 doses or times, Stop date: 06/09/18 2:00:00 MEDICAL ECONOMICS CONSULTANT, ABX Indication : Surgical Prophylaxis Notes: (Same As: Ancef, Hungfzol) MEDICATION WASTE Product Size: 1000 mgP roduct Wasted: ___ mg Start Date: 06/08/18 Stop Date: 06/09/18 Status: Completed ceFAZolin + sterile water 20 mL 2 gm, Route: IV, ONCALL, Start date: 06/07/18 23:00:00 MEDICAL ECONOMICS CONSULTANT, Duration: 21 hr, Sto p date: 06/08/18 19:59:00 MEDICAL ECONOMICS CONSULTANT, ABX Indication: Surgical Prophylaxis Notes: (Same As: Ancef, Hungfzol) MEDICATION WASTE Product Size: 1000 mgP roduct Wasted: ___ mg Start Date: 06/07/18 Stop Date: 06/08/18 Status: Discontinued celecoxib 200 mg, 1 cap, Route: PO, Drug form: CAP, Q12H, Dosing Weight 96.818, kg, Start date: 06/08/18 17:00:00 MEDICAL ECONOMICS CONSULTANT, Duration: 30 day, Stop date: 07/08/18 5:00:00 MEDICAL ECONOMICS CONSULTANT Notes: NSAID. Please check indication. Not for seizure. (Same As: CeleBREX) Start Date: 06/08/18 Stop Date: 06/10/18 Status: Discontinued celecoxib 200 mg oral capsule 200 mg=1 cap, PO, Q12H, # 30 cap, 0 Refill(s), Pharmacy: [facility] [id number] [facility] Start Date: 06/08/18 Status: Ordered CeleXA 100 mg, PO, Bedtime, 0 Refill(s) Start Date: 05/11/18 Status: Ordered Cyklokapron + Sodium Chloride 0.9% IV 100 mL 1,000 mg, 10 mL, Route: IVPB, ONCALL, Start date: 06/07/18 23:00:00 MEDICAL ECONOMICS CONSULTANT, Duratio n: 2 doses or times Notes: (Same As: Cyklokapron) Start Date: 06/07/18 Stop Date: 06/08/18 Status: Discontinued dexamethasone (ANES) Route: IV, Drug form: INJ, ONCE, Stop date: 06/09/18 7:48:00 MEDICAL ECONOMICS CONSULTANT Start Date: 06/09/18 Stop Date: 06/09/18 Status: Completed dexamethasone (ANES) Route: IV, Drug form: INJ, ONCE, Stop date: 06/08/18 8:58:00 MEDICAL ECONOMICS CONSULTANT Start Date: 06/08/18 Stop Date: 06/08/18 Status: Completed diphenhydrAMINE 12.5 mg, 5 mL, Route: PO, Drug form: LIQ, Q6H, Dosing Weight 96.818, kg, PRN Itc maria, Start date: 06/08/18 10:36:00 MEDICAL ECONOMICS CONSULTANT, Duration: 30 day, Stop date: 07/08/18 1 0:35:00 MEDICAL ECONOMICS CONSULTANT Notes: (Same as: Benadryl) Start Date: 06/08/18 Stop Date: 06/11/18 Status: Discontinued docusate 100 mg, 1 cap, Route: PO, Drug form: CAP, BID, Dosing Weight 96.818, kg, Start d ate: 06/08/18 17:00:00 MEDICAL ECONOMICS CONSULTANT, Duration: 30 day, Stop date: 07/08/18 9:00:00 MEDICAL ECONOMICS CONSULTANT Notes: (Same as: Colace) (Do Not Crush) Start Date: 06/08/18 Stop Date: 06/11/18 Status: Discontinued famotidine (ANES) Route: IV, Drug form: INJ, ONCE, Stop date: 06/08/18 8:58:00 MEDICAL ECONOMICS CONSULTANT Start Date: 06/08/18 Stop Date: 06/08/18 Status: Completed fentaNYL (ANES) Route: IV, Drug form: INJ, ONCE, Stop date: 06/09/18 7:48:00 MEDICAL ECONOMICS CONSULTANT Start Date: 06/09/18 Stop Date: 06/09/18 Status: Completed fentaNYL (ANES) Route: IV, Drug form: INJ, ONCE, Stop date: 06/08/18 8:53:00 MEDICAL ECONOMICS CONSULTANT Start Date: 06/08/18 Stop Date: 06/08/18 Status: Completed gabapentin 300 mg, 1 cap, Route: PO, Drug form: CAP, Q8H, Dosing Weight 96.818, kg, Start d ate: 06/08/18 16:00:00 MEDICAL ECONOMICS CONSULTANT, Duration: 30 day, Stop date: 07/08/18 8:00:00 MEDICAL ECONOMICS CONSULTANT Notes: (Same as: Neurontin) Start Date: 06/08/18 Stop Date: 06/08/18 Status: Discontinued gabapentin 300 mg oral capsule 300 mg, Route: PO, Drug form: CAP, Daily, Dosing Weight 100, kg, (CrCl < 15 ml/min), Start date: 06/11/18 9:00:00 MEDICAL ECONOMICS CONSULTANT, Duration: 30 day, Stop date: 07/10/18 9:00:00 MEDICAL ECONOMICS CONSULTANT Start Date: 06/11/18 Stop Date: 06/10/18 Status: Deleted ketOROLAC 30 mg, 1 mL, Route: IVP, Drug form: INJ, ONCE, Dosing Weight 100, kg, Start date : 06/10/18 18:52:00 MEDICAL ECONOMICS CONSULTANT, Stop date: 06/10/18 18:52:00 MEDICAL ECONOMICS CONSULTANT Notes: (Same as:Toradol) IV bolus must be given >15 seconds. Give IM administration slowly and deeply into the muscle.Not for use > 4 days MEDICATION WASTE Product Size: 30 mgProduct Wasted: ___ mg Start Date: 06/10/18 Stop Date: 06/10/18 Status: Deleted ketOROLAC 30 mg, Route: IM, Q8H, Dosing Weight 100, kg, PRN Pain Score 7-10, Start date: 08/11/17 15:19:00 MEDICAL ECONOMICS CONSULTANT, Duration: 4 day, Stop date: 06/14/18 15:18:00 MEDICAL ECONOMICS CONSULTANT Start Date: 06/10/18 Stop Date: 06/10/18 Status: Deleted ketOROLAC (ANES) IV, ONCE Start Date: 06/08/18 Stop Date: 06/08/18 Status: Completed ketOROLAC (ANES) IV, ONCE Start Date: 06/09/18 Stop Date: 06/09/18 Status: Completed ketOROLAC 30 mg/mL injectable solution 30 mg, 1 mL, Route: IV, Drug form: INJ, ONCE, Start date: 06/10/18 23:30:00 MEDICAL ECONOMICS CONSULTANT, Stop date: 06/10/18 23:30:00 MEDICAL ECONOMICS CONSULTANT Notes: (Same as:Toradol) IV bolus must be given >15 seconds. Give IM administration slowly and deeply into the muscle.Not for use > 4 days MEDICATION WASTE Product Size: 30 mgProduct Wasted: ___ mg Start Date: 06/10/18 Stop Date: 06/11/18 Status: Completed Lactated Ringers Injection IV (ANES) 1000 mL Route: IV, Total Volume: 1,000, Start date: 06/08/18 8:00:00 MEDICAL ECONOMICS CONSULTANT, Stop date: 01/17 9:00:00 MEDICAL ECONOMICS CONSULTANT Start Date: 06/08/18 Stop Date: 06/08/18 Status: Completed Lactated Ringers Injection IV (ANES) 1000 mL Route: IV, Total Volume: 1,000, Start date: 06/09/18 7:05:00 MEDICAL ECONOMICS CONSULTANT, Stop date: 02/17 8:05:00 MEDICAL ECONOMICS CONSULTANT Start Date: 06/09/18 Stop Date: 06/09/18 Status: Completed lidocaine (ANES) Route: IV, Drug form: INJ, ONCE, Stop date: 06/09/18 7:48:00 MEDICAL ECONOMICS CONSULTANT Start Date: 06/09/18 Stop Date: 06/09/18 Status: Completed lidocaine (ANES) Route: IV, Drug form: INJ, ONCE, Stop date: 06/08/18 8:53:00 MEDICAL ECONOMICS CONSULTANT Start Date: 06/08/18 Stop Date: 06/08/18 Status: Completed Lidoderm 5% topical film (patch) 1 patch, Route: TOP, ONCE, Drug form: FILM, Start date: 06/09/18 8:28:00 MEDICAL ECONOMICS CONSULTANT, St op date: 06/09/18 8:28:00 MEDICAL ECONOMICS CONSULTANT, Remove after 12 hours Start Date: 06/09/18 Stop Date: 06/09/18 Status: Completed Lyrica 150 mg oral capsule 150 mg=1 cap, PO, TID, 0 Refill(s) Start Date: 05/11/18 Status: Ordered melatonin 3 mg, 1 tab, Route: PO, Drug form: TAB, Bedtime, Dosing Weight 96.818, kg, PRN I nsomnia, Start date: 06/08/18 10:36:00 MEDICAL ECONOMICS CONSULTANT, Duration: 30 day, Stop date: 9 10:35:00 MEDICAL ECONOMICS CONSULTANT Notes: (Same as: Melatonin) Start Date: 06/08/18 Stop Date: 06/11/18 Status: Discontinued metoclopramide (ANES) Route: IV, Drug form: INJ, ONCE, Stop date: 06/08/18 8:58:00 MEDICAL ECONOMICS CONSULTANT Start Date: 06/08/18 Stop Date: 06/08/18 Status: Completed midazolam (ANES) Route: IV, Drug form: SOLN, ONCE, Stop date: 06/09/18 7:48:00 MEDICAL ECONOMICS CONSULTANT Start Date: 06/09/18 Stop Date: 06/09/18 Status: Completed midazolam (ANES) Route: IV, Drug form: SOLN, ONCE, Stop date: 06/08/18 8:58:00 MEDICAL ECONOMICS CONSULTANT Start Date: 06/08/18 Stop Date: 06/08/18 Status: Completed morphine Sulfate 6 mg, 3 mL, Route: PO, Drug form: SOLN, Q4H, Dosing Weight 96.818, kg, PRN Pain Score 7-10, Start date: 06/08/18 10:36:00 MEDICAL ECONOMICS CONSULTANT, Duration: 30 day, Stop date: 12/19 10:35:00 MEDICAL ECONOMICS CONSULTANT Notes: (Same as:MORPhine Sulfate) Start Date: 06/08/18 Stop Date: 06/10/18 Status: Discontinued morphine Sulfate (ANES) Route: IV, Drug form: INJ, ONCE, Stop date: 06/08/18 10:47:00 MEDICAL ECONOMICS CONSULTANT Start Date: 06/08/18 Stop Date: 06/08/18 Status: Completed mupirocin topical 1 appl, Route: NASAL, Q12H, Drug form: OINT, Start date: 06/08/18 21:00:00 MEDICAL ECONOMICS CONSULTANT, Duration: 30 day, Stop date: 07/08/18 9:00:00 MEDICAL ECONOMICS CONSULTANT Start Date: 06/08/18 Stop Date: 06/11/18 Status: Discontinued naloxone 0.4 mg, 1 mL, Route: IVP, Drug form: INJ, Q2MIN, PRN Narcotic Reversal, Start da te: 06/10/18 17:29:00 MEDICAL ECONOMICS CONSULTANT, Duration: 30 day, Stop date: 07/10/18 17:28:00 MEDICAL ECONOMICS CONSULTANT Notes: Same as Narcan Start Date: 06/10/18 Stop Date: 06/11/18 Status: Discontinued naproxen 500 mg, 1 tab, Route: PO, Drug form: TAB, BID, Dosing Weight 100, kg, Start date : 06/11/18 9:00:00 MEDICAL ECONOMICS CONSULTANT, Duration: 30 day, Stop date: 07/10/18 17:00:00 MEDICAL ECONOMICS CONSULTANT Notes: (Same as: Naprosyn) Take with food. Start Date: 06/11/18 Stop Date: 06/11/18 Status: Discontinued ondansetron 4 mg, 2 mL, Route: IVP, Drug form: INJ, Q8H, Dosing Weight 96.818, kg, PRN Nause a & Vomiting, Start date: 06/08/18 10:36:00 MEDICAL ECONOMICS CONSULTANT, Duration: 30 day, Stop date: 07/08/18 10:35:00 MEDICAL ECONOMICS CONSULTANT Notes: (Same as: Zofran) MEDICATION WASTE Product Size: 4 mgProduct Was celio: ___ mg Start Date: 06/08/18 Stop Date: 06/11/18 Status: Discontinued ondansetron (ANES) Route: IV, Drug form: INJ, ONCE, Stop date: 06/08/18 10:47:00 MEDICAL ECONOMICS CONSULTANT Start Date: 06/08/18 Stop Date: 06/08/18 Status: Completed ondansetron (ANES) Route: IV, Drug form: INJ, ONCE, Stop date: 06/09/18 7:48:00 MEDICAL ECONOMICS CONSULTANT Start Date: 06/09/18 Stop Date: 06/09/18 Status: Completed oxyCODONE 5 mg immediate release 5 mg, 1 tab, Route: PO, Drug form: TAB, Q4H, Dosing Weight 96.818, kg, PRN Pain Score 4-6, Start date: 06/08/18 10:36:00 MEDICAL ECONOMICS CONSULTANT, Duration: 30 day, Stop date: 07/08 10:35:00 MEDICAL ECONOMICS CONSULTANT Notes: (Same as: Roxicodone) Start Date: 06/08/18 Stop Date: 06/11/18 Status: Discontinued oxyCODONE 5 mg immediate release 10 mg, 2 tab, Route: PO, Drug form: TAB, Q4H, Dosing Weight 96.818, kg, PRN Pain Score 7-10, Start date: 06/08/18 10:36:00 MEDICAL ECONOMICS CONSULTANT, Duration: 30 day, Stop date: 12/19 10:35:00 MEDICAL ECONOMICS CONSULTANT Notes: (Same as: Roxicodone) Start Date: 06/08/18 Stop Date: 06/10/18 Status: Discontinued oxyCONTIN 20 mg, 1 tab, Route: PO, Drug form: ERTAB, Q12H, Dosing Weight 100, kg, Start da te: 06/10/18 18:30:00 MEDICAL ECONOMICS CONSULTANT, Duration: 30 day, Stop date: 07/10/18 6:30:00 MEDICAL ECONOMICS CONSULTANT Notes: Do not crush or chew.(Same as: OxyContin) Start Date: 06/10/18 Stop Date: 06/11/18 Status: Discontinued oxyCONTIN 10 mg oral tablet, extended release 10 mg=1 tab, PO, Q12H, # 30 tab, 0 Refill(s), given to patient Start Date: 06/11/18 Stop Date: 07/11/18 Status: Ordered pregabalin 150 mg, 2 cap, Route: PO, Drug form: CAP, TID, Dosing Weight 100, kg, Start date : 06/08/18 20:30:00 MEDICAL ECONOMICS CONSULTANT, Duration: 30 day, Stop date: 07/08/18 20:00:00 MEDICAL ECONOMICS CONSULTANT Notes: (Same as: Lyrica) Start Date: 06/08/18 Stop Date: 06/11/18 Status: Discontinued propofol (ANES) Route: IV, Drug form: INJ, ONCE, Stop date: 06/09/18 7:48:00 MEDICAL ECONOMICS CONSULTANT Start Date: 06/09/18 Stop Date: 06/09/18 Status: Completed propofol (ANES) Route: IV, Drug form: INJ, ONCE, Stop date: 06/08/18 9:03:00 MEDICAL ECONOMICS CONSULTANT Start Date: 06/08/18 Stop Date: 06/08/18 Status: Completed propofol (ANES) 10 mg Route: IV, Drug form: INJ, Start date: 06/08/18 8:12:00 MEDICAL ECONOMICS CONSULTANT, Stop date: 06/08/18 9:12:00 MEDICAL ECONOMICS CONSULTANT Start Date: 06/08/18 Stop Date: 06/08/18 Status: Completed Protonix 40 mg, 1 tab, Route: PO, Drug form: ECTAB, Before Dinner, Dosing Weight 100, kg, Start date: 06/11/18 16:30:00 MEDICAL ECONOMICS CONSULTANT, Duration: 30 day, Stop date: 07/10/18 16:30: 00 MEDICAL ECONOMICS CONSULTANT Notes: Tablet should not be chewed or crushed.(Same as: Protonix) Start Date: 06/11/18 Stop Date: 06/11/18 Status: Discontinued Robaxin 500 mg, 1 tab, Route: PO, Drug form: TAB, TID, Dosing Weight 100, kg, PRN Leg Cr amps, Start date: 06/09/18 9:43:00 MEDICAL ECONOMICS CONSULTANT, Duration: 30 day, Stop date: 07/09/18 9: 42:00 MEDICAL ECONOMICS CONSULTANT Notes: (Same as:Robaxin) Start Date: 06/09/18 Stop Date: 06/11/18 Status: Discontinued Robaxin 500 mg, Route: PO, Drug form: TAB, TID, Dosing Weight 100, kg, Start date: 06/09 13:00:00 MEDICAL ECONOMICS CONSULTANT, Duration: 30 day, Stop date: 07/09/18 9:00:00 MEDICAL ECONOMICS CONSULTANT Start Date: 06/09/18 Stop Date: 06/09/18 Status: Deleted Robaxin + Dextrose 5% in Water IV 100 mL 500 mg, 5 mL, Route: IV, ONCE, Dosing Weight 100, kg, Priority: NOW, Start date: 06/09/18 8:25:00 MEDICAL ECONOMICS CONSULTANT, Stop date: 06/09/18 8:25:00 MEDICAL ECONOMICS CONSULTANT Notes: (Same as:Robaxin) Start Date: 06/09/18 Stop Date: 06/09/18 Status: Completed Robaxin 500 mg oral tablet 500 mg=1 tab, PO, Q6H, PRN Spasms, X 7 day, # 28 tab, 0 Refill(s), Pharmacy: [facility] [id number] [facility] Start Date: 06/09/18 Stop Date: 06/16/18 Status: Completed ropivacaine 0.2% in NS - site 1 400 mL Route: NERVE BLOCK, Start date: 06/10/18 8:29:00 MEDICAL ECONOMICS CONSULTANT 400 mL, Drug Form: INJ, Dos ing Weight 100, kg, Duration: 30 day, Stop date: 07/10/18 8:28:00 MEDICAL ECONOMICS CONSULTANT, 8 ml/hr Notes: Final concentration: Ropivacaine 0.2% 400 ml Start Date: 06/10/18 Stop Date: 06/11/18 Status: Discontinued ropivacaine 0.2% in NS - site 1 400 mL Route: NERVE BLOCK, Start date: 06/08/18 8:32:00 MEDICAL ECONOMICS CONSULTANT 400 mL, Drug Form: INJ, Dos ing Weight 96.818, kg, Duration: 30 day, Stop date: 07/08/18 8:31:00 MEDICAL ECONOMICS CONSULTANT, 6 ml/h r Notes: Final concentration: Ropivacaine 0.2% 400 ml Start Date: 06/08/18 Stop Date: 06/10/18 Status: Discontinued Sodium Chloride 0.9% IV 25 mL, Route: IV, Start date: 06/08/18 13:13:00 MEDICAL ECONOMICS CONSULTANT, Duration: 30 day, Stop date : 07/08/18 13:12:00 MEDICAL ECONOMICS CONSULTANT, PRN Line Flush Start Date: 06/08/18 Stop Date: 06/11/18 Status: Discontinued tizanidine 2 mg, 0.5 tab, Route: PO, Drug form: TAB, Q6H, Dosing Weight 96.818, kg, PRN Mus svitlana Spasms, Start date: 06/08/18 10:36:00 MEDICAL ECONOMICS CONSULTANT, Duration: 30 day, Stop date: 12/19 10:35:00 MEDICAL ECONOMICS CONSULTANT Notes: (Same As: Zanaflex) Start Date: 06/08/18 Stop Date: 06/11/18 Status: Discontinued tranexamic acid (ANES) 100 mg Route: IV, Drug form: INJ, Start date: 06/08/18 8:20:00 MEDICAL ECONOMICS CONSULTANT, Stop date: 06/08/18 9:20:00 MEDICAL ECONOMICS CONSULTANT Start Date: 06/08/18 Stop Date: 06/08/18 Status: Completed vancomycin 1.5 gm, 250 mL, Route: IVPB, Drug form: INJ, ONCALL, Start date: 06/07/18 23:00: 00 MEDICAL ECONOMICS CONSULTANT, Duration: 21 hr, Stop date: 06/08/18 19:59:00 MEDICAL ECONOMICS CONSULTANT, ABX Indication: Surgi best Prophylaxis Notes: TIME CRITICAL MEDICATIONSame as: Vancocin-NS (premixed)Infusion rate< 1000 mg: infuse over 1 [id number] - 1500 mg: infuse over 1.5 [id number] - 2000 mg: infuse over 2 hours> 2001 mg: infuse over 2.5 hours Start Date: 06/07/18 Stop Date: 06/08/18 Status: Discontinued vancomycin (ANES) 1.5 gm Route: IV, Drug form: INJ, Start date: 06/08/18 7:45:00 MEDICAL ECONOMICS CONSULTANT, Stop date: 06/08/18 8:45:00 MEDICAL ECONOMICS CONSULTANT Start Date: 06/08/18 Stop Date: 06/08/18 Status: Completed Vitamin D2 50,000 intl units oral capsule 50,000 IntlUnit=1 cap, PO, qWeek, 0 Refill(s) Start Date: 06/08/18 Status: Ordered Zofran 4 mg oral tablet 4 mg=1 tab, PO, Q6H, PRN Nausea/Vomiting, # 30 tab, 0 Refill(s), Pharmacy: [facility] [id number] [facility] Start Date: 06/08/18 Stop Date: 06/16/18 Status: Ordered Results 1 2 3 Most recent to oldest [Reference Range]: 10.1 K/CMM *HI* (06/10/18 4:50 PM) 14.9 K/CMM *HI* (06/09/18 3:17 AM) 8.7 K/CMM *HI* (05/11/18 1:48 PM) Neutrophils # [1.5-8.1 K/CMM] 5.2 K/CMM (06/10/18 4:50 PM) 4.4 K/CMM (06/09/18 3:17 AM) 5.5 K/CMM (05/11/18 1:48 PM) Lymphocytes # [1.0-5.5 K/CMM] 1.7 K/CMM *HI* (06/10/18 4:50 PM) 1.7 K/CMM *HI* (06/09/18 3:17 AM) 0.6 K/CMM (05/11/18 1:48 PM) Monocytes # [0.0-0.8 K/CMM] 0.1 K/CMM (06/10/18 4:50 PM) 0.2 K/CMM (05/11/18 1:48 PM) Eosinophils # [0.0-0.5 K/CMM] 0.2 K/CMM (06/10/18 4:50 PM) 0.2 K/CMM (05/11/18 1:48 PM) Basophils # [0.0-0.2 K/CMM] COMMENT 1 *NA* (05/23/18 4:10 PM) Misc [facility] Negative (05/11/18 1:48 PM) MRSA by PCR 95 mL/min/1.73m2 2 *NA* (05/11/18 1:48 PM) eGFR 0.9 (05/11/18 1:48 PM) A/G Ratio [0.7-1.6] 3.4 g/dL *LOW* (05/11/18 1:48 PM) Albumin Lvl [3.5-5.0 g/dL] 82 unit/L (05/11/18 1:48 PM) Alk Phos [39-136 unit/L] 30 unit/L (05/11/18 1:48 PM) ALT [0-65 unit/L] 13.6 mEq/L (05/11/18 1:48 PM) AGAP [10.0-20.0 mEq/L] 28 unit/L (05/11/18 1:48 PM) AST [0-37 unit/L] 12 (05/11/18 1:48 PM) B/C Ratio [6-25] 1.0 % (06/10/18 4:50 PM) 0.2 % (06/09/18 3:17 AM) 1.1 % *HI* (05/11/18 1:48 PM) Basophils [0.0-1.0 %] 9 mg/dL (05/11/18 1:48 PM) BUN [7-22 mg/dL] 8.8 mg/dL (05/11/18 1:48 PM) Calcium Lvl [8.5-10.5 mg/dL] 105 mEq/L (05/11/18 1:48 PM) Chloride Lvl [95-109 mEq/L] 25 mEq/L (05/11/18 1:48 PM) CO2 [24-32 mEq/L] 0.76 mg/dL (05/11/18 1:48 PM) Creatinine Lvl [0.50-1.40 mg/dL] 0.7 % (06/10/18 4:50 PM) 0.1 % (06/09/18 3:17 AM) 1.6 % (05/11/18 1:48 PM) Eosinophils [0.0-4.0 %] 3.9 g/dL (05/11/18 1:48 PM) Globulin [2.7-4.2 g/dL] 128 mg/dL *HI* (05/11/18 1:48 PM) Glucose Lvl [70-99 mg/dL] 40.1 % (06/10/18 4:50 PM) 36.9 % (06/09/18 3:17 AM) 44.1 % (05/11/18 1:48 PM) Hct [36.0-48.0 %] 13.1 g/dL (06/10/18 4:50 PM) 12.0 g/dL (06/09/18 3:17 AM) 14.9 g/dL (05/11/18 1:48 PM) Hgb [12.0-16.0 g/dL] 0.93 (05/11/18 1:48 PM) INR [0.85-1.17] 3.6 mEq/L (05/11/18 1:48 PM) Potassium Lvl [3.5-5.1 mEq/L] 30.1 % (06/10/18 4:50 PM) 20.9 % (06/09/18 3:17 AM) 36.1 % (05/11/18 1:48 PM) Lymphocytes [20.0-40.0 %] 28.9 pg (06/10/18 4:50 PM) 28.7 pg (06/09/18 3:17 AM) 28.9 pg (05/11/18 1:48 PM) MCH [27.0-31.0 pg] 32.8 g/dL (06/10/18 4:50 PM) 32.6 g/dL (06/09/18 3:17 AM) 33.8 g/dL (05/11/18 1:48 PM) MCHC [32.0-36.0 g/dL] 88.1 fL (06/10/18 4:50 PM) 88.0 fL (06/09/18 3:17 AM) 85.6 fL (05/11/18 1:48 PM) MCV [80.0-98.0 fL] 9.7 % (06/10/18 4:50 PM) 7.9 % (06/09/18 3:17 AM) 3.7 % (05/11/18 1:48 PM) Monocytes [2.0-12.0 %] 9.1 fL (06/10/18 4:50 PM) 9.3 fL (06/09/18 3:17 AM) 9.2 fL (05/11/18 1:48 PM) MPV [7.4-10.4 fL] 140 mEq/L (05/11/18 1:48 PM) Sodium Lvl [135-145 mEq/L] 299 K/CMM (06/10/18 4:50 PM) 302 K/CMM (06/09/18 3:17 AM) 327 K/CMM (05/11/18 1:48 PM) Platelet [133-450 K/CMM] 58.5 % (06/10/18 4:50 PM) 70.9 % (06/09/18 3:17 AM) 57.5 % (05/11/18 1:48 PM) Segs [45.0-75.0 %] 7.3 g/dL (05/11/18 1:48 PM) Total Protein [6.4-8.4 g/dL] 12.5 seconds (05/11/18 1:48 PM) PT [12.0-14.7 seconds] 29.5 seconds (05/11/18 1:48 PM) PTT [22.9-35.8 seconds] 4.55 M/CMM (06/10/18 4:50 PM) 4.19 M/CMM *LOW* (06/09/18 3:17 AM) 5.16 M/CMM (05/11/18 1:48 PM) RBC [4.20-5.40 M/CMM] 15.6 % *HI* (06/10/18 4:50 PM) 15.6 % *HI* (06/09/18 3:17 AM) 15.6 % *HI* (05/11/18 1:48 PM) RDW [11.5-14.5 %] 0.6 mg/dL (05/11/18 1:48 PM) Bili Total [0.2-1.3 mg/dL] Negative *NA* (05/11/18 1:48 PM) UA Bili [Negative] Negative (05/11/18 1:48 PM) UA Blood [Negative] Yellow *NA* (05/11/18 1:48 PM) UA Color [Yellow] Negative *NA* (05/11/18 1:48 PM) UA Glucose [Negative] Trace *ABN* (05/11/18 1:48 PM) UA Ketones [Negative] Negative (05/11/18 1:48 PM) UA Leuk Est [Negative] Few /LPF *NA* (05/11/18 1:48 PM) UA Mucus [None Seen /LPF] Negative (05/11/18 1:48 PM) UA Nitrite [Negative] 5.0 (05/11/18 1:48 PM) UA pH [5.0-8.0] Negative (05/11/18 1:48 PM) UA Protein [Negative] 1 /HPF (05/11/18 1:48 PM) UA RBC [0-2 /HPF] 1.018 (05/11/18 1:48 PM) UA Spec Grav [<=1.030] Occasional /LPF *NA* (05/11/18 1:48 PM) UA Sq Epi [Few /LPF] Clear (05/11/18 1:48 PM) UA Turbidity [Clear] 2.0 mg/dL *HI* (05/11/18 1:48 PM) UA Urobilinogen [0.1-1.0 mg/dL] <1 /HPF (05/11/18 1:48 PM) UA WBC [0-5 /HPF] 17.3 K/CMM *HI* (06/10/18 4:50 PM) 21.0 K/CMM *HI* (06/09/18 3:17 AM) 15.1 K/CMM *HI* (05/11/18 1:48 PM) WBC [3.7-10.4 K/CMM] Performed (05/11/18 1:48 PM) Micro? 1Result Comment: Test Ordered: [id number] Nicotine+Cotinine+Anabasine Nicotine Note: ng/mL BN None Detected This test was developed and its performance characteristics determined by [facility]. It has not been cleared or approved by the Food and Drug Administration. Cotinine 11 ng/mL BN This test was developed and its performance characteristics determined by [facility]. It has not been cleared or approved by the Food and Drug Administration. Anabasine Note: ng/mL BN None Detected Nicotine levels greater than 100 ng/mL, cotinine levels greater than 200 ng/mL and anabasine levels greater than 10 ng/mL are consistent with active tobacco product use. This test was developed and its performance characteristics determined by [facility]. It has not been cleared or approve by the Food and Drug Administration. Performed At: [facility] [id number] Reji Cooper MD Ph:[phone] 2Result Comment: The eGFR is calculated using the [...] from the National Kidney Disease Education Program ( NKDEP) which additionally recommends that when the eGFR is used in patients with extremes of body mass index for purposes of drug dosing, the eGFR should be mul tiplied by the estimated BMI. Microbiology Reports TEST: Culture: Urine STATUS: Auth (Verified) BODY SITE: SOURCE: Urine, Clean Catch COLLECTED DATE/TIME: 05/11/18 1:48 PM FINAL REPORT <10,000 CFU/mL Group B Streptococcus , No susceptibility performed since these organisms are predictably susceptible to penicillin. If patient is penicillin allergic or susceptibility testing for additional antibiotics is clinically warranted please call the laboratory. <10,000 CFU/mL Skin Cathie Immunizations No data available for this section Procedures Procedure Date Related Diagnosis Body Site Status Procedure1 Completed Tonsillectomy Completed 1Rotator cuff ear Social History Social History Type Response Smoking Status Former smoker; Previous treatment: None; Exposure to Tobacco Smoke None; Cigarette Smoking Last 365 Days No; Reg Smoking Cessation Counseling No1 entered on: 06/08/18 1Patient said she just quit smoking 2 days ago, on Chantix. Assessment and Plan Extracted from: Title: Orthopedic surgery Author: Yordy Mae Date: 06/10/18 Progress Note - Daily [facility] Completed: Jun, 19:42 by Yordy Mae MD RM: 5M28 - 00, [id number] (: 1970) F Attending: Clifton Bay MDPhone: Service: Orthopedic Reason for Admission: [id number], [id number] RIGHT KNEE OSTEOARTHRITIS Working DRG: Code status: None Specified=FULL CODECurrent diet: Isolation: No Isolation/Standard Precautions Allergies: traMADol, [...] on light touch 24hr Labs 06/10 1650 WBC17.3 H RBC4.55 Hgb13.1 Hct40.1 MCV88.1 MCH28.9 MCHC32.8 RDW15.6 H Sszynfcw631 MPV9.1 Segs58.5 Monocytes9.7 Mzthrrwxbbq41.1 Eosinophils0.7 Basophils1.0 Segs-Bands #10.1 H Lymphocytes #5.2 Monocytes #1.7 H Eosinophils #0.1 Basophils #0.2 Meza still necessary (Yes/No): Line still necessary (Yes/No): VitalsTmp(F)[id number] 06/10 16:[id number]/3655414--- 06/10 12:0098.185016/335269--- 06/10 08:0098.264046/3263571--- 06/10 04:0098.380891/609981--- 06/10 00:0098.749600/912279--- 24 Hr Tmax: 100.6F (38.11c) at 06/10 16:00Vital Signs are the last 5 in the past 48 hours. DateWt(kg)Wt(lb)Ht(cm)Ht(in)Method 06/08100.00 220.11040.02 63.00Mea/Sta 05/11 (initial) 96.82 213.27397.02 63.00Measured I&ORecordInOutBal 06/924hr Tot 963 0 963 06/824hr Tot 1973 0 1973 Medications (25) Active [...] 06/08/18 Sodium Chloride 0.45% IV 1,000 mL (1/2 NS 1,000 mL) 1,000 mL 75 ml/hr 06/10/18 ropivacaine 400 mL (ropivacaine 0.2% in NS - site 1 400 mL) 400 mL 8 ml/hr ASSESSMENT & EXAM Dx. Rt knee DJD POD #2 [...] secondary to atelectasis, inc spirometry recommended. PLAN & TREATMENT Change NSAIDs to Naproxen bid and DC Celebrex Change Aspirin to 81mg PO bid continue lyrica Toradol IV once and protonix Out of bed tomorrow morning with PT, WBAT walker Okay to discharge home tomorrow on recommended regimen
--- OUTSIDE RECORDS SUMMARY | 2019-01-23 14:22 | XMS REPORT | Summary of Care ---
Author Author [facility] Outpatient Imaging [facility] Organization [facility] Outpatient Imaging [facility] Address Unknown Phone Unavailable Encounter HQ Avilar_jonathan(FIN) [id number] Date(s): 04/26/18 - 04/26/18 [facility] Outpatient Imaging [address] [phone] Encounter Diagnosis Unilateral primary osteoarthritis, right knee (Final) - 05/02/18 Discharge Disposition: Home or Self Care Attending Physician: Clifton Bay MD Referring Physician: Clifton Bay MD Vital Signs No data available for this section Problem List Condition Effective Dates Status Health Status Informant Osteoarthritis(Confi Active rmed)1 1right knee Allergies, Adverse Reactions, Alerts Substance Reaction Severity Status ciprofloxacin Active Food Shrimp Active traMADol Active Medications No data available for this section Results No data available for this section Immunizations No data available for this section [...] days ago, on Chantix. Assessment and Plan No data available for this section
--- OUTSIDE RECORDS SUMMARY | 2019-01-23 14:22 | XMS REPORT | Summary of Care ---
Author Author [facility] Address Unknown Phone Unavailable Encounter HQ Encntr_jonathan(FIN) [id number] Date(s): 07/10/18 - 08/08/18 [facility] Discharge Disposition: Home or Self Care Attending Physician: Clifton Bay MD Vital Signs No [...]
--- OUTSIDE RECORDS SUMMARY | 2019-01-23 14:22 | XMS REPORT | Summary of Care ---
Author Author [facility] Address Unknown Phone Unavailable Encounter HQ Encntr_jonathan(FIN) [id number] Date(s): 08/21/18 - 09/19/18 [facility] Discharge Disposition: Home or Self Care Attending [...]
--- OUTSIDE RECORDS SUMMARY | 2019-01-23 14:22 | XMS REPORT | Summary of Care ---
Author Author Emily Landa Organization Unknown Address Unknown Phone Unavailable Care Team Providers Care Weblogic Developer Name Role Phone ROLAN DAVIS M.D. Unavailable Unavailable Emily Landa Unavailable Unavailable ROLAN KANG MD Unavailable Unavailable Unavailable Unavailable Functional Status Name Dates Details Functional status health issues are not documented Status: Name Dates Details Cognitive status health issues are not documented Status: Problems Name Dates Details Primary osteoarthritis of right knee (715.16, M17.11) Status: Active Muscle spasm (728.85, M62.838) Status: Active Medications Name Dates Details traMADol HCl - 50 MG Oral Tablet TAKE 1 TABLET EVERY 6 HOURS NEEDED. Quantity: 60 RYAN Wellington, ROLAN * Start : 14-May-2018 Active Methocarbamol 750 MG Oral Tablet TAKE 1 TABLET 3 TIMES DAILY. * Quantity: 30 Refills: 0 RYAN Wellington, ROLAN * Start : 28-Jun-2018 Active Azithromycin 250 MG Oral Tablet TAKE 2 TABLETS ON DAY 1 THEN TAKE 1 TABLET A DAY FOR 4 DAYS. * Quantity: 1 Refills: 0 RYAN Wellington, ROLAN * Start : 04-Jul-2018 Active 6 Tablet Pack Methocarbamol 750 MG Oral Tablet TAKE 1 TABLET 3 TIMES DAILY. * Quantity: 60 Refills: 0 RYAN Wellington, ROLAN * Start : 27-Jul-2018 Active HYDROcodone-Acetaminophen 10-325 MG Oral Tablet TAKE 1 TABLET EVERY 4 HOURS NEEDED FOR PAIN. * Quantity: 60 Refills: 0 RYAN Wellington, ROLAN * Start : 27-Jul-2018 Active Allergies and Adverse Reactions Name Dates Details No Known Drug Allergies (Allergy) Status: Active Procedures Procedure Dates Details Post Op Promis 29 Survey Date: 05-Dec-2018 Immunization Name Dates Details Immunizations not documented Social History Name Dates Details Unknown if ever smoked Vital Signs Date Test Result Details No Known Vitals to report Results Date Description Value Details Results not documented Plan of Care Name Dates Details Planned Observations Planned Goals not documented Planned Encounters Appointment; ROLAN DAVIS M.D. On: 05-Dec-2018 8:45 Interventions Provided Labs/Procedures/Imaging* Post Op Promis 29 Survey; To Be Done: 05 Dec 2018 Instructions Name Dates Details Instructions not documented Encounters Appointment; ROLAN DAVIS M.D. Encounter Diagnosis: Problem not documented On: 18-Apr-2018 10:00 Appointment; ROLAN DAVIS M.D. Encounter Diagnosis: Problem not documented On: 23-May-2018 9:15 Appointment; ROLAN DAVIS M.D. Encounter Diagnosis: Problem not documented On: 08-Jun-2018 7:00 Appointment; ROLAN DAVIS M.D. Encounter Diagnosis: Problem not documented On: 18-Jun-2018 13:00 Appointment; ROLAN DAVIS M.D. Encounter Diagnosis: Problem not documented On: 04-Jul-2018 13:15 Appointment; ROLAN DAVIS M.D. Encounter Diagnosis: Problem not documented On: 27-Jul-2018 13:45 Appointment; ROLAN DAVIS M.D. Encounter Diagnosis: Problem not documented On: 05-Sep-2018 8:45
[2019-01-23] MEDS ORDERED: SODIUM CHLORIDE 0.9% 1000ML 1,000 ML IV STA (14:48)
[2019-01-23 15:57] LABS: BILIRUBIN,URINE NEGATIVE (NEGATIVE); CLARITY,URINE SL CLOUDY (CLEAR); COLOR,URINE YELLOW (YELLOW); KETONES,URINE NEGATIVE (NEGATIVE); LEUKOCYTE ESTERASE ,URINE NEGATIVE (NEGATIVE); NITRITE,URINE NEGATIVE (NEGATIVE); PROTEIN,URINE DIPSTICK NEGATIVE (NEGATIVE); URINE UROBILINOGEN 0.2 mg/dL (0.2 - 1)
[2019-01-23 16:00] LABS: BASOPHILS # (AUTO) 0.1 (0.0-0.1); BASOPHILS % 0.5 % (0.0-1.0); EOSINOPHILS # (AUTO) 0.2 (0.0-0.4); HEMATOCRIT 43.4 % (34.2-44.1); HEMOGLOBIN 14.7 g/dL (12.0-16.0); LYMPHOCYTES # (AUTO) 4.6 (1.0-3.2); LYMPHOCYTES % 24.8 % (18.0-39.1); MEAN CORPUSCULAR HEMOGLOBIN 29.9 pg (28-32); MEAN CORPUSCULAR HGB CONC 33.9 g/dL (31-35); MEAN CORPUSCULAR VOLUME 88.2 fL (81-99); MONOCYTES % 5.3 % (4.4-11.3); NEUTROPHILS # (AUTO) 12.5 (2.1-6.9); NEUTROPHILS % 67.8 % (38.7-80.0); PLATELET COUNT 342 x10e3/uL (140-360); RED BLOOD COUNT 4.92 x10e6/uL (3.6-5.1); RED CELL DISTRIBUTION WIDTH 14.3 % (11.7-14.4)
[2019-01-23 16:14] LABS: AMPHETAMINES SCREEN,URINE NEGATIVE (NEGATIVE); BENZODIAZEPINES SCREEN,URINE NEGATIVE (NEGATIVE); PHENCYCLIDINE SCREEN,URINE NEGATIVE (NEGATIVE)
[2019-01-23 16:16] LABS: BACTERIA,URINE MANY /HPF; EPITHELIAL CELLS,URINE MANY /LPF; TRANSITIONAL EPI CELLS,URINE MODERATE
[2019-01-23 16:19] LABS: INR 0.84
[2019-01-23 16:20] LABS: PARTIAL THROMBOPLASTIN TIME 29.8 seconds (23.8-35.5)
[2019-01-23 16:27] LABS: ALANINE AMINOTRANSFERASE 32 IU/L (0-55); ALBUMIN 3.7 g/dL (3.5-5.0); ALKALINE PHOSPHATASE 64 IU/L (40-150); ANION GAP 16.4 mmol/L (8-16); BLOOD UREA NITROGEN 12 mg/dL (7-26); BUN/CREATININE RATIO 17 (6-25); CALCIUM 9.6 mg/dL (8.4-10.2); CARBON DIOXIDE 23 mmol/L (22-29); CHLORIDE 105 mmol/L (98-107); CREATINE KINASE 40 IU/L (29-168); CREATININE, SERUM 0.72 mg/dL (0.57-1.11); EST GLOMERULAR FILTRATION RATE > 60 ML/MIN (60-); GLUCOSE 95 mg/dL (74-118); MAGNESIUM 2.6 MG/DL (1.3-2.1); POTASSIUM 4.4 mmol/L (3.5-5.1); SODIUM 140 mmol/L (136-145)
--- NOTE | 2019-01-23 16:36 | Diagnostic Imaging Report ---
Exam: Head CT without contrast History: Possible stroke, right-sided facial numbness. Comparison studies: No prior exams are available on PACS at the time of comparison. Technique: Axial images were obtained from the skull base to the vertex. Coronal and sagittal images reconstructed from the axial data. Dose modulation, iterative reconstruction, and/or weight based adjustment of the mA/kV was utilized to reduce the radiation dose to as low as reasonably achievable. Radiation dose: Total DLP: 832 mGy*cm. Estimated effective dose: DLP x 0.015 Intravenous contrast: None Findings: Scalp: No abnormalities. Bones: No fractures, blastic or lytic lesions. Brain sulci: Appropriate for age. Ventricles: Normal in size and configuration. No hydrocephalus. Extra-axial spaces: No masses, no fluid collection. Parenchyma: No abnormal densities. No masses, acute, hemorrhage, acute or chronic vascular insults. Sellar/suprasellar region: No abnormalities. Craniocervical junction: Patent foramen magnum. No Chiari one malformation. IMPRESSION: No intracranial abnormalities. Signed by: Dr. Yordy Carter M.D. on 01/23/2019 4:32 PM
[2019-01-23 16:46] LABS: THYROID STIMULATING HORMONE 0.462 uIU/mL (0.350-4.940)
--- NOTE | 2019-01-23 16:59 | Diagnostic Imaging Report ---
EXAMINATION: CHEST SINGLE (PORTABLE) INDICATION: Patient numbness COMPARISON: None FINDINGS: TUBES and LINES: EKG leads overlie the chest. LUNGS: The lung volumes are normal. No focal consolidation or pulmonary edema. PLEURA: No pleural effusion or pneumothorax. HEART AND MEDIASTINUM: The cardiomediastinal silhouette is normal in size and contour. BONES AND SOFT TISSUES: No acute fracture or dislocation. UPPER ABDOMEN: No free air under the diaphragm. IMPRESSION: No focal pneumonia or pulmonary edema. Signed by: Sarah Styles MD on 01/23/2019 4:55 PM
[2019-01-23] MEDS ORDERED: ASPIRIN 81 MG CHEW TAB PO ONE (17:30)
[2019-01-23] MEDS ORDERED: MECLIZINE HCL 12.5 MG TAB PO ONE (17:30)
[2019-01-23] MEDS: FAMOTIDINE 20 MG/2 ML VIAL IV SCH (17:47)
[2019-01-23] MEDS: SODIUM CHLORIDE 0.9% 1000ML 1,000 ML IV SCH ×2 (17:48→21:35)
--- OUTSIDE RECORDS SUMMARY | 2019-01-23 18:16 | XMS REPORT | Clinical Summary ---
Author Author [facility] [employer] Organization [facility] Address Unknown Phone Unavailable Care Team Providers Care Behavioral School Counselors Name Role Phone Uriel Chin MD PCP [...] ID Type Phone Address Plan / Group [facility] [place] HMO xxxxxxxxx HMO/POS CARE POS SELECT CHOICE Advance Directives For more information, please contact: [phone] [place] [address] Date Inactivated Comments Code Status Date Activated 02/28/2016 2:15 AM Full Code 02/27/2016 8:41 PM This code status was determined by: Patient 01/28/2016 8:51 PM Full Code 01/24/2016 11:16 PM This code status was determined by: Patient 01/24/2016 11:16 PM Full Code 01/24/2016 4:42 PM This code status was determined by: Patient
--- OUTSIDE RECORDS SUMMARY | 2019-01-23 18:17 | XMS REPORT | Continuity of Care Document ---
Author Author [facility] Organization [facility] Address Unknown Phone Unavailable Care Team Providers Care Back Wedger Name Role Phone To [employer] Unavailable Unavailable Problems Problem Status Onset Date Classification Date Reported Comments Source Unilateral primary osteoarthritis, right knee 06/16/2018 12/29/2018 [facility] KNEE Active 06/08/2018 [facility] [place] [id number], [id number] RIGHT KNEE OSTEOARTHRITIS Active 04/24/2018 [facility] M17.11 - UNILATERAL PRIMARY OSTEOARTHRI Active 04/18/2018 [facility] PAIN R KNEE Active 07/03/2017 [facility] [place] Other complications of foreign body accidentally left in body following surgical operation, initial encounter 12/29/2018 [facility] Pain in left leg 12/29/2018 [facility] Osteoarthritis1 Active Problem 12/29/2018 right knee [facility] [place],[facility] ILLNESS, UNSPECIFIED Active [facility] Medications Medication Details Route Status Patient Instructions Ordering Provider Order Date Source Protonix 40 mg, 1 tab, Route: PO, Drug form: ECTAB, Before Dinner, Dosing Weight 100, kg, Start date: 06/11/18 16:30:00 PUMPER BREWERY, Duration: 30 day, Stop date: 07/10/18 16:30:00 CSTNotes: Tablet should not be chewed or crushed. (Same as: Protonix) Inactive 06/11/2018 [facility] 12 HR Oxycodone Hydrochloride 10 MG Extended Release Tablet [Oxycontin] 10 mg=1 tab, PO, Q12H, # 30 tab, 0 Refill(s), given to patient Active 06/11/2018 [facility] Naproxen 500 mg, 1 tab, Route: PO, Drug form: TAB, BID, Dosing Weight 100, kg, Start date: 06/11/18 9:00:00 PUMPER BREWERY, Duration: 30 day, Stop date: 07/10/18 17:00:00 CSTNotes: (Same as: Naprosyn) Take with food. Inactive 06/11/2018 [facility] gabapentin 300 MG Oral Capsule 300 mg, Route: PO, Drug form: CAP, Daily, Dosing Weight 100, kg, (CrCl No Longer Active 06/11/2018 [facility] ketOROLAC 30 mg/mL injectable solution 30 mg, 1 mL, Route: IV, Drug form: INJ, ONCE, Start date: 06/10/18 23:30:00 PUMPER BREWERY, Stop date: 06/10/18 23:30:00 CSTNotes: (Same as:Toradol) IV bolus must be given >15 seconds. Give IM administration slowly and deeply into the muscle. Not for use > 4 days MEDICATION WASTE Product Size: 30 mg Product Wasted: ___ mg No Longer Active 06/11/2018 [facility] aspirin 81 mg tablet, enteric coated 81 mg, 1 tab, Route: PO, Drug form: ECTAB, Q12H, Start date: 06/10/18 21:00:00 PUMPER BREWERY, Duration: 30 day, Stop date: 07/10/18 9:00:00 CSTNotes: Do not crush or chew. (Same As: Ecotrin) No Longer Active 06/11/2018 [facility] Ketorolac 30 mg, 1 mL, Route: IVP, Drug form: INJ, ONCE, Dosing Weight 100, kg, Start date: 06/10/18 18:52:00 PUMPER BREWERY, Stop date: 06/10/18 18:52:00 CSTNotes: (Same as:Toradol) IV bolus must be given >15 seconds. Give IM administration slowly and deeply into the muscle. Not for use > 4 days MEDICATION WASTE Product Size: 30 mg Product Wasted: ___ mg Inactive 06/11/2018 [facility] Oxycontin 20 mg, 1 tab, Route: PO, Drug form: ERTAB, Q12H, Dosing Weight 100, kg, Start date: 06/10/18 18:30:00 PUMPER BREWERY, Duration: 30 day, Stop date: 07/10/18 6:30:00 CSTNotes: Do not crush or chew. (Same as: OxyContin) No Longer Active 06/11/2018 [facility] naloxone 0.4 mg, 1 mL, Route: IVP, Drug form: INJ, Q2MIN, PRN Narcotic Reversal, Start date: 06/10/18 17:29:00 PUMPER BREWERY, Duration: 30 day, Stop date: 07/10/18 17:28:00 CSTNotes: Same as Narcan No Longer Active 06/10/2018 [facility] Ketorolac 30 mg, Route: IM, Q8H, Dosing Weight 100, kg, PRN Pain Score 7-10, Start date: 06/10/18 15:19:00 PUMPER BREWERY, Duration: 4 day, Stop date: 06/14/18 15:18:00 PUMPER BREWERY Inactive 06/10/2018 [facility] ropivacaine Route: NERVE BLOCK, Start date: 06/10/18 8:29:00 PUMPER BREWERY 400 mL, Drug Form: INJ, Dosing Weight 100, kg, Duration: 30 day, Stop date: 07/10/18 8:28:00 PUMPER BREWERY, 8 ml/hrNotes: Final concentration: Ropivacaine 0.2% 400 ml No Longer Active 06/10/2018 [facility] Robaxin 500 mg, Route: PO, Drug form: TAB, TID, Dosing Weight 100, kg, Start date: 06/09/18 13:00:00 PUMPER BREWERY, Duration: 30 day, Stop date: 07/09/18 9:00:00 PUMPER BREWERY Inactive 06/09/2018 [facility] Robaxin 500 mg, 1 tab, Route: PO, Drug form: TAB, TID, Dosing Weight 100, kg, PRN Leg Cramps, Start date: 06/09/18 9:43:00 PUMPER BREWERY, Duration: 30 day, Stop date: 07/09/18 9:42:00 CSTNotes: (Same as:Robaxin) No Longer Active 06/09/2018 [facility] Methocarbamol 500 MG Oral Tablet [Robaxin] 500 mg=1 tab, PO, Q6H, PRN Spasms, X 7 day, # 28 tab, 0 Refill(s), Pharmacy: [facility] [id number] [facility] No Longer Active 06/09/2018 [facility] Lidocaine Hydrochloride 0.05 MG/MG Transdermal Patch [Lidoderm] 1 patch, Route: TOP, ONCE, Drug form: FILM, Start date: 06/09/18 8:28:00 PUMPER BREWERY, Stop date: 06/09/18 8:28:00 PUMPER BREWERY, Remove after 12 hours Inactive 06/09/2018 [facility] Robaxin 500 mg, 5 mL, Route: IV, ONCE, Dosing Weight 100, kg, Priority: NOW, Start date: 06/09/18 8:25:00 PUMPER BREWERY, Stop date: 06/09/18 8:25:00 CSTNotes: (Same as:Robaxin) Inactive 06/09/2018 [facility] midazolam (ANES) Route: IV, Drug form: SOLN, ONCE, Stop date: 06/09/18 7:48:00 PUMPER BREWERY Inactive 06/09/2018 [facility] lidocaine (ANES) Route: IV, Drug form: INJ, ONCE, Stop date: 06/09/18 7:48:00 PUMPER BREWERY Inactive 06/09/2018 [facility] fentaNYL (ANES) Route: IV, Drug form: INJ, ONCE, Stop date: 06/09/18 7:48:00 PUMPER BREWERY Inactive 06/09/2018 [facility] propofol (ANES) Route: IV, Drug form: INJ, ONCE, Stop date: 06/09/18 7:48:00 PUMPER BREWERY Inactive 06/09/2018 [facility] ondansetron (ANES) Route: IV, Drug form: INJ, ONCE, Stop date: 06/09/18 7:48:00 PUMPER BREWERY Inactive 06/09/2018 [facility] ketOROLAC (ANES) IV, ONCE Inactive 06/09/2018 [facility] ceFAZolin (ANES) Route: IV, Drug form: INJ, ONCE, Stop date: 06/09/18 7:48:00 PUMPER BREWERY Inactive 06/09/2018 [facility] dexamethasone (ANES) Route: IV, Drug form: INJ, ONCE, Stop date: 06/09/18 7:48:00 PUMPER BREWERY Inactive 06/09/2018 [facility] Midazolam 1 mg, 1 mL, Route: IVP, Drug form: INJ, Q5Min, Dosing Weight 100, kg, PRN Anxiety, Start date: 06/09/18 7:23:00 PUMPER BREWERY, Duration: 2 doses or times, Stop date: Limited # of timesNotes: (Same as: Versed) MEDICATION WASTE Product Size: 5 mg Product Wasted: ___ mg Inactive 06/09/2018 [facility] Flumazenil 0.2 mg, 2 mL, Route: IVP, Drug form: INJ, PRN, Dosing Weight 100, kg, PRN Benzodiazepine Reversal, Initial dose, Start date: 06/09/18 7:23:00 PUMPER BREWERY, Duration: 30 day, Stop date: 07/09/18 7:22:00 CSTNotes: (Same as: Romazicon) Inactive 06/09/2018 [facility] Naloxone 0.4 mg, 1 mL, Route: IVP, Drug form: INJ, Q2MIN, Dosing Weight 100, kg, PRN Narcotic Reversal, Start date: 06/09/18 7:23:00 PUMPER BREWERY, Duration: 8 doses or times, Stop date: Limited # of timesNotes: Same as Narcan Inactive 06/09/2018 [facility] Acetaminophen 1,000 mg, 2 tab, Route: PO, Drug form: TAB, ONCE, Dosing Weight 100, kg, PRN Pain Score 1-3, Start date: 06/09/18 7:23:00 CSTNotes: Max acetaminophen 4000 mg/day (4 gm/day). (Same as: Tylenol Extra Strength) Inactive 06/09/2018 [facility] Ketorolac 30 mg, 1 mL, Route: IVP, Drug form: INJ, ONCE, Dosing Weight 100, kg, Start date: 06/09/18 7:23:00 PUMPER BREWERY, Stop date: 06/09/18 7:23:00 CSTNotes: (Same as:Toradol) IV bolus must be given >15 seconds. Give IM administration slowly and deeply into the muscle. Not for use > 4 days MEDICATION WASTE Product Size: 30 mg Product Wasted: ___ mg Inactive 06/09/2018 [facility] Meperidine 12.5 mg, 0.25 mL, Route: IVP, Drug form: INJ, Q30Min, Dosing Weight 100, kg, PRN Other -See Comment, For shivering, Start date: 06/09/18 7:23:00 PUMPER BREWERY, Duration: 2 doses or times, Stop date: Limited # of timesNotes: (Same as: Demerol) "Use Precaution in Elderly, Seizure disorders, and Renal impairment" Inactive 06/09/2018 [facility] Ondansetron 4 mg, 2 mL, Route: IVP, Drug form: INJ, ONCE, Dosing Weight 100, kg, PRN Nausea & Vomiting, Start date: 06/09/18 7:23:00 CSTNotes: (Same as: Zofran) MEDICATION WASTE Product Size: 4 mg Pro duct Wasted: ___ mg Inactive 06/09/2018 [facility] Promethazine 6.25 mg, 0.25 mL, Route: IVPB, ONCE, Dosing Weight 100, kg, PRN Nausea & Vomiting, Start date: 06/09/18 7:23:00 CSTNotes: Do not give IV push. (Same as: Phenergan) Inactive 06/09/2018 [facility] Diphenhydramine 12.5 mg, 0.25 mL, Route: IVP, Drug form: INJ, Q6H, Dosing Weight 100, kg, PRN Itching, Start date: 06/09/18 7:23:00 PUMPER BREWERY, Duration: 30 day, Stop date: 07/09/18 7:22:00 CSTNotes: (Same as: Benadryl) Inactive 06/09/2018 [facility] Hydromorphone 0.5 mg, Route: IVP, Q5Min, Dosing Weight 100, kg, PRN Pain Score 7-10, Start date: 06/09/18 7:23:00 PUMPER BREWERY, Duration: 4 doses or times, Stop date: Limited # of times Inactive 06/09/2018 [facility] Morphine 2 mg, 0.5 mL, Route: IVP, Drug form: SOLN, Q5Min, Dosing Weight 100, kg, PRN Pain Score 4-6, Start date: 06/09/18 7:23:00 PUMPER BREWERY, Duration: 5 doses or times, Stop date: Limited # of timesNotes: (Same as :MORPhine Sulfate) Inactive 06/09/2018 [facility] Hydralazine 10 mg, 0.5 mL, Route: IVP, Drug form: INJ, Q20Min, Dosing Weight 100, kg, PRN Elevated BP, Start date: 06/09/18 7:23:00 PUMPER BREWERY, Duration: 2 doses or times, Stop date: Limited # of times Inactive 06/09/2018 [facility] Metoprolol 1 mg, 1 mL, Route: IVP, Drug form: INJ, Q5Min, Dosing Weight 100, kg, PRN Other -See Comment, Start date: 06/09/18 7:23:00 PUMPER BREWERY, Duration: 5 doses or times, Stop date: Limited # of timesNotes: (Same as: Lopressor) Push over 2 minutes Inactive 06/09/2018 [facility] Labetalol 10 mg, 2 mL, Route: IVP, Drug form: INJ, Q5Min, Dosing Weight 100, kg, PRN Elevated BP, Start date: 06/09/18 7:23:00 PUMPER BREWERY, Duration: 5 doses or times, Stop date: Limited # of times Inactive 06/09/2018 [facility] ANES Enalaprilat 0.625 mg, 0.5 mL, Route: IVP, Drug form: INJ, Q5Min, Dosing Weight 100, kg, PRN Elevated BP, Start date: 06/09/18 7:23:00 PUMPER BREWERY, Duration: 4 doses or times, Stop date: Limited # of timesNotes: (Same as: Vasotec-IV) Inactive 06/09/2018 [facility] Lactated Ringers Injection IV (ANES) 1000 mL Route: IV, Total Volume: 1,000, Start date: 06/09/18 7:05:00 PUMPER BREWERY, Stop date: 06/09/18 8:05:00 PUMPER BREWERY Inactive 06/09/2018 [facility] Mupirocin 1 appl, Route: NASAL, Q12H, Drug form: OINT, Start date: 06/08/18 21:00:00 PUMPER BREWERY, Duration: 30 day, Stop date: 07/08/18 9:00:00 PUMPER BREWERY No Longer Active 06/09/2018 [facility] pregabalin 150 mg, 2 cap, Route: PO, Drug form: CAP, TID, Dosing Weight 100, kg, Start date: 06/08/18 20:30:00 PUMPER BREWERY, Duration: 30 day, Stop date: 07/08/18 20:00:00 CSTNotes: (Same as: Lyrica) No Longer Active 06/09/2018 [facility] Ondansetron 4 MG Oral Tablet [Zofran] 4 mg=1 tab, PO, Q6H, PRN Nausea/Vomiting, # 30 tab, 0 Refill(s), Pharmacy: [id number] Active 06/08/2018 [facility] celecoxib 200 mg oral capsule 200 mg=1 cap, PO, Q12H, # 30 cap, 0 Refill(s), Pharmacy: [email or web address] Active 06/08/2018 [facility] Aspirin 325 MG Oral Tablet 325 mg=1 tab, PO, Q12H, # 50 tab, 0 Refill(s), Pharmacy: [facility] [id number] [facility] Active 06/08/2018 [facility] celecoxib 200 mg, 1 cap, Route: PO, Drug form: CAP, Q12H, Dosing Weight 96.818, kg, Start date: 06/08/18 17:00:00 PUMPER BREWERY, Duration: 30 day, Stop date: 07/08/18 5:00:00 CSTNotes: NSAID. Please check indication. Not for seizure. (Same As: CeleBREX) No Longer Active 06/08/2018 [facility] Docusate 100 mg, 1 cap, Route: PO, Drug form: CAP, BID, Dosing Weight 96.818, kg, Start date: 06/08/18 17:00:00 PUMPER BREWERY, Duration: 30 day, Stop date: 07/08/18 9:00:00 CSTNotes: (Same as: Colace) (Do Not Crush) No Longer Active 06/08/2018 [facility] gabapentin 300 mg, 1 cap, Route: PO, Drug form: CAP, Q8H, Dosing Weight 96.818, kg, Start date: 06/08/18 16:00:00 PUMPER BREWERY, Duration: 30 day, Stop date: 07/08/18 8:00:00 CSTNotes: (Same as: Neurontin) Inactive 06/08/2018 [facility] Aspirin 325 mg, 1 tab, Route: PO, Drug form: TAB, Q12H, Dosing Weight 96.818, kg, For patients with risk of bleeding, Start date: 06/08/18 14:59:00 PUMPER BREWERY, Stop date: 07/08/18 9:00:00 PUMPER BREWERY No Longer Active 06/08/2018 [facility] Acetaminophen 1,000 mg, 2 tab, Route: PO, Drug form: TAB, Q6H, Dosing Weight 96.818, kg, Start date: 06/08/18 14:00:00 PUMPER BREWERY, Duration: 30 day, Stop date: 07/08/18 8:00:00 CSTNotes: Max acetaminophen 4000 mg/day (4 gm/day). (Same as: Tylenol Extra Strength) No Longer Active 06/08/2018 [facility] Cefazolin 2 gm, Route: IVPB, Q6H, Dosing Weight 96.818, kg, Start date: 06/08/18 14:00:00 PUMPER BREWERY, Duration: 3 doses or times, Stop date: 06/09/18 2:00:00 PUMPER BREWERY, ABX Indication: Surgical ProphylaxisNotes: (Same As: Anc ef, Kefzol) MEDICATION WASTE Product Size: 1000 mg Product Wasted: ___ mg No Longer Active 06/08/2018 [facility] Vitamin D2 50,000 intl units oral capsule 50,000 IntlUnit=1 cap, PO, qWeek, 0 Refill(s) Active 06/08/2018 [facility] Sodium Chloride 0.9% IV 25 mL, Route: IV, Start date: 06/08/18 13:13:00 PUMPER BREWERY, Duration: 30 day, Stop date: 07/08/18 13:12:00 PUMPER BREWERY, PRN Line Flush No Longer Active 06/08/2018 [facility] BD Normal Saline Flush 10 mL, Route: IV, Drug Form: INJ, PRN, PRN Line Flush, Start date: 06/08/18 13:13:00 PUMPER BREWERY, Duration: 30 day, Stop date: 07/08/18 13:12:00 CSTNotes: (Same as: BD Posiflush) No Longer Active 06/08/2018 [facility] Acetaminophen 1,000 mg, Route: IVPB, Q6Hnow, Dosing Weight 96.818, kg, Start date: 06/08/18 11:00:00 PUMPER BREWERY, Duration: 30 day, Stop date: 07/08/18 5:00:00 PUMPER BREWERY Inactive 06/08/2018 [facility] ketOROLAC (ANES) IV, ONCE Inactive 06/08/2018 [facility] ondansetron (ANES) Route: IV, Drug form: INJ, ONCE, Stop date: 06/08/18 10:47:00 PUMPER BREWERY Inactive 06/08/2018 [facility] morphine Sulfate (ANES) Route: IV, Drug form: INJ, ONCE, Stop date: 06/08/18 10:47:00 PUMPER BREWERY Inactive 06/08/2018 [facility] Oxycodone Hydrochloride 5 MG Oral Tablet 5 mg, 1 tab, Route: PO, Drug form: TAB, Q4H, Dosing Weight 96.818, kg, PRN Pain Score 4-6, Start date: 06/08/18 10:36:00 PUMPER BREWERY, Duration: 30 day, Stop date: 07/08/18 10:35:00 CSTNotes: (Same as: Roxicodone) No Longer Active 06/08/2018 [facility] Morphine 6 mg, 3 mL, Route: PO, Drug form: SOLN, Q4H, Dosing Weight 96.818, kg, PRN Pain Score 7-10, Start date: 06/08/18 10:36:00 PUMPER BREWERY, Duration: 30 day, Stop date: 07/08/18 10:35:00 CSTNotes: (Same as:MORPhine Sulfate) No Longer Active 06/08/2018 [facility] Diphenhydramine 12.5 mg, 5 mL, Route: PO, Drug form: LIQ, Q6H, Dosing Weight 96.818, kg, PRN Itching, Start date: 06/08/18 10:36:00 PUMPER BREWERY, Duration: 30 day, Stop date: 07/08/18 10:35:00 CSTNotes: (Same as: Benadryl) No Longer Active 06/08/2018 [facility] tizanidine 2 mg, 0.5 tab, Route: PO, Drug form: TAB, Q6H, Dosing Weight 96.818, kg, PRN Muscle Spasms, Start date: 06/08/18 10:36:00 PUMPER BREWERY, Duration: 30 day, Stop date: 07/08/18 10:35:00 CSTNotes: (Same As: Zanaflex) No Longer Active 06/08/2018 [facility] Ondansetron 4 mg, 2 mL, Route: IVP, Drug form: INJ, Q8H, Dosing Weight 96.818, kg, PRN Nausea & Vomiting, Start date: 06/08/18 10:36:00 PUMPER BREWERY, Duration: 30 day, Stop date: 07/08/18 10:35:00 CSTNotes: (Same as: Zofran) MEDICATION WASTE Product Size: 4 mg Product Wasted: ___ mg No Longer Active 06/08/2018 [facility] Melatonin 3 mg, 1 tab, Route: PO, Drug form: TAB, Bedtime, Dosing Weight 96.818, kg, PRN Insomnia, Start date: 06/08/18 10:36:00 PUMPER BREWERY, Duration: 30 day, Stop date: 07/08/18 10:35:00 CSTNotes: (Same as: Melatonin) No Longer Active 06/08/2018 [facility] Aluminum Hydroxide 40 MG/ML / Magnesium Hydroxide 40 MG/ML / Simethicone 4 MG/ML Oral Suspension 30 mL, Route: PO, Drug Form: SUSP, Dosing Weight 96.818, kg, Q4H, PRN Indigestion, Start date: 06/08/18 10:36:00 PUMPER BREWERY, Duration: 30 day, Stop date: 07/08/18 10:35:00 CSTNotes: (aluminum hydroxide-magnesium hyd-simethicone [phone]/5ml 30 ml ud BETITO) No Longer Active 06/08/2018 [facility] 1/2 NS 1,000 mL 1,000 mL, Rate: 75 ml/hr, Infuse over: 13.3 hr, Route: IV, Dosing Weight 96.818 kg, Total Volume: 1,000, Start date: 06/08/18 10:33:00 PUMPER BREWERY, Duration: 30 day, Stop date: 07/08/18 10:32:00 PUMPER BREWERY, 2.11, m2 No Longer Active 06/08/2018 [facility] propofol (ANES) Route: IV, Drug form: INJ, ONCE, Stop date: 06/08/18 9:03:00 PUMPER BREWERY Inactive 06/08/2018 [facility] dexamethasone (ANES) Route: IV, Drug form: INJ, ONCE, Stop date: 06/08/18 8:58:00 PUMPER BREWERY Inactive 06/08/2018 [facility] midazolam (ANES) Route: IV, Drug form: SOLN, ONCE, Stop date: 06/08/18 8:58:00 PUMPER BREWERY Inactive 06/08/2018 [facility] metoclopramide (ANES) Route: IV, Drug form: INJ, ONCE, Stop date: 06/08/18 8:58:00 PUMPER BREWERY Inactive 06/08/2018 [facility] famotidine (ANES) Route: IV, Drug form: INJ, ONCE, Stop date: 06/08/18 8:58:00 PUMPER BREWERY Inactive 06/08/2018 [facility] fentaNYL (ANES) Route: IV, Drug form: INJ, ONCE, Stop date: 06/08/18 8:53:00 PUMPER BREWERY Inactive 06/08/2018 [facility] ceFAZolin (ANES) Route: IV, Drug form: INJ, ONCE, Stop date: 06/08/18 8:53:00 PUMPER BREWERY Inactive 06/08/2018 [facility] lidocaine (ANES) Route: IV, Drug form: INJ, ONCE, Stop date: 06/08/18 8:53:00 PUMPER BREWERY Inactive 06/08/2018 [facility] Ondansetron 4 mg, Route: IVP, ONCE, Dosing Weight 96.818, kg, PRN Nausea & Vomiting, Start date: 06/08/18 8:34:00 PUMPER BREWERY Inactive 06/08/2018 [facility] Hydralazine 10 mg, Route: IVP, Q20Min, Dosing Weight 96.818, kg, PRN Elevated BP, Start date: 06/08/18 8:34:00 PUMPER BREWERY, Duration: 2 doses or times, Stop date: Limited # of times Inactive 06/08/2018 [facility] Metoprolol 1 mg, Route: IVP, Q5Min, Dosing Weight 96.818, kg, PRN Other -See Comment, Start date: 06/08/18 8:34:00 PUMPER BREWERY, Duration: 5 doses or times, Stop date: Limited # of times Inactive 06/08/2018 [facility] Morphine 2 mg, Route: IVP, Q5Min, Dosing Weight 96.818, kg, PRN Pain Score 4-6, Start date: 06/08/18 8:34:00 PUMPER BREWERY, Duration: 5 doses or times, Stop date: Limited # of times Inactive 06/08/2018 [facility] Hydromorphone 0.5 mg, Route: IVP, Q5Min, Dosing Weight 96.818, kg, PRN Pain Score 7-10, Start date: 06/08/18 8:34:00 PUMPER BREWERY, Duration: 4 doses or times, Stop date: Limited # of times Inactive 06/08/2018 [facility] Naloxone 0.4 mg, Route: IVP, Q2MIN, Dosing Weight 96.818, kg, PRN Narcotic Reversal, Start date: 06/08/18 8:34:00 PUMPER BREWERY, Duration: 8 doses or times, Stop date: Limited # of times Inactive 06/08/2018 [facility] Flumazenil 0.2 mg, Route: IVP, PRN, Dosing Weight 96.818, kg, PRN Benzodiazepine Reversal, Initial dose, Start date: 06/08/18 8:34:00 PUMPER BREWERY, Duration: 30 day, Stop date: 07/08/18 8:33:00 PUMPER BREWERY Inactive 06/08/2018 [facility] Labetalol 10 mg, Route: IVP, Q5Min, Dosing Weight 96.818, kg, PRN Elevated BP, Start date: 06/08/18 8:34:00 PUMPER BREWERY, Duration: 5 doses or times, Stop date: Limited # of times Inactive 06/08/2018 [facility] ropivacaine Route: NERVE BLOCK, Start date: 06/08/18 8:32:00 PUMPER BREWERY 400 mL, Drug Form: INJ, Dosing Weight 96.818, kg, Duration: 30 day, Stop date: 07/08/18 8:31:00 PUMPER BREWERY, 6 ml/hrNotes: Final concentration: Ropivacaine 0.2% 400 ml No Longer Active 06/08/2018 [facility] tranexamic acid (ANES) 100 mg Route: IV, Drug form: INJ, Start date: 06/08/18 8:20:00 PUMPER BREWERY, Stop date: 06/08/18 9:20:00 PUMPER BREWERY Inactive 06/08/2018 [facility] propofol (ANES) 10 mg Route: IV, Drug form: INJ, Start date: 06/08/18 8:12:00 PUMPER BREWERY, Stop date: 06/08/18 9:12:00 PUMPER BREWERY Inactive 06/08/2018 [facility] Lactated Ringers Injection IV (ANES) 1000 mL Route: IV, Total Volume: 1,000, Start date: 06/08/18 8:00:00 PUMPER BREWERY, Stop date: 06/08/18 9:00:00 PUMPER BREWERY Inactive 06/08/2018 [facility] vancomycin (ANES) 1.5 gm Route: IV, Drug form: INJ, Start date: 06/08/18 7:45:00 PUMPER BREWERY, Stop date: 06/08/18 8:45:00 PUMPER BREWERY Inactive 06/08/2018 [facility] Cyklokapron + Sodium Chloride 0.9% IV 100 mL 1,000 mg, 10 mL, Route: IVPB, ONCALL, Start date: 06/07/18 23:00:00 PUMPER BREWERY, Duration: 2 doses or timesNotes: (Same As: Cyklokapron) No Longer Active 06/08/2018 [facility] vancomycin 1.5 gm, 250 mL, Route: IVPB, Drug form: INJ, ONCALL, Start date: 06/07/18 23:00:00 PUMPER BREWERY, Duration: 21 hr, Stop date: 06/08/18 19:59:00 PUMPER BREWERY, ABX Indication: Surgical ProphylaxisNotes: TIME CRITICAL MEDICA TION Same as: Vancocin-NS (premixed) Infusion rate 2001 mg: infuse over 2.5 hours No Longer Active 06/08/2018 [facility] ceFAZolin + sterile water 20 mL 2 gm, Route: IV, ONCALL, Start date: 06/07/18 23:00:00 PUMPER BREWERY, Duration: 21 hr, Stop date: 06/08/18 19:59:00 PUMPER BREWERY, ABX Indication: Surgical ProphylaxisNotes: (Same As: Clover Hauser) MEDICATION WASTE Product Size: 1000 mg Product Wasted: ___ mg No Longer Active 06/08/2018 [facility] Celexa 100 mg, PO, Bedtime, 0 Refill(s) Active 05/12/2018 [facility] pregabalin 150 MG Oral Capsule [Lyrica] 150 mg=1 cap, PO, TID, 0 Refill(s) Active 05/12/2018 [facility] Acetaminophen 325 MG / Hydrocodone Bitartrate 10 MG Oral Tablet 1 tab, PO, Q6H, for break through pain only and not to be taking at tthe same of oxycontin, 0 Refill(s) Active 05/12/2018 [facility] Metronidazole (Flagyl) 500 Mg Tablet, 500 Mg Oral Three Times A Day Active 04/15/2014 [facility] Amlodipine Besylate (Norvasc) 2.5 Mg Tablet, Mg Oral as needed for Daily Active 02/10/2014 [facility] Cyclobenzaprine Hcl (Flexeril) 5 Mg Tablet, 5 Mg Oral Qhs Active 02/10/2014 [facility] Diclofenac Sodium 75 Mg Tablet.dr, 75 Mg Oral Bid Prn Active 02/10/2014 [facility] Duloxetine Hcl (Cymbalta) 30 Mg Capsule., 30 Mg Oral Twice A Day Active 02/10/2014 [facility] Folic Acid 1 Mg Tablet, Active 02/10/2014 [facility] Gabapentin (Neurontin) 300 Mg Capsule, 300 Mg Oral Twice A Day Active 02/10/2014 [facility] Hydrocodone Bit/Acetaminophen ([place] 5-325 Tablet) 1 Each Tablet, 1 Mg Oral Every 6-8 Hours as needed for Pain Active 02/10/2014 [facility] Omeprazole 20 Mg Capsule., 1 Tab Oral Daily Active 03/26/2012 [facility] Ondansetron Hcl (Zofran) 4 Mg Tablet, 1 Tab Oral As Needed Active 03/26/2012 [facility] Smz/Tmp , 1 Mg Oral Active 03/26/2012 [facility] Sumatriptan Succinate 50 Mg Tablet, 1 Tab Oral Every Two Hours Active 03/26/2012 [facility] Amlodipine Besylate/Benazepril (Amlodipine-Benazepril 2.5-10) 1 Each Capsule Daily Active [facility] Allergies, Adverse Reactions, Alerts Substance Category Reaction Severity Reaction type Status Date Reported Comments Source ciprofloxacin HCl Mild Allergy to Substance Active 09/10/2015 [facility] Ciprofloxacin Mild Allergy to Substance Active 09/10/2015 [facility] ciprofloxacin Assertion Drug allergy Active [facility] Food Shrimp Assertion Drug allergy Active [facility] traMADol Assertion Drug allergy Active [facility] Immunizations No Data Provided for This Section Results Order Name Results Value Reference Range Date Interpretation Comments Source HEMATOLOGY Eosinophils # 0.1 0.0 - 0.5 06/10/2018 [facility] HEMATOLOGY Basophils # 0.2 0.0 - 0.2 06/10/2018 [facility] HEMATOLOGY Segs 58.5 45.0 - 75.0 06/10/2018 [facility] HEMATOLOGY Lymphocytes 30.1 20.0 - 40.0 06/10/2018 [facility] HEMATOLOGY Monocytes 9.7 2.0 - 12.0 06/10/2018 [facility] HEMATOLOGY Eosinophils 0.7 0.0 - 4.0 06/10/2018 [facility] HEMATOLOGY Lymphocytes # 5.2 1.0 - 5.5 06/10/2018 [facility] HEMATOLOGY Monocytes # 1.7 0.0 - 0.8 06/10/2018 [facility] HEMATOLOGY Basophils 1.0 0.0 - 1.0 06/10/2018 [facility] HEMATOLOGY Neutrophils # 10.1 1.5 - 8.1 06/10/2018 [facility] HEMATOLOGY MCV 88.1 80.0 - 98.0 06/10/2018 [facility] HEMATOLOGY MCH 28.9 27.0 - 31.0 06/10/2018 [facility] HEMATOLOGY Hct 40.1 36.0 - 48.0 06/10/2018 [facility] HEMATOLOGY MCHC 32.8 32.0 - 36.0 06/10/2018 [facility] HEMATOLOGY RDW 15.6 11.5 - 14.5 06/10/2018 [facility] HEMATOLOGY MPV 9.1 7.4 - 10.4 06/10/2018 [facility] HEMATOLOGY Platelet 299 133 - 450 06/10/2018 [facility] HEMATOLOGY RBC 4.55 4.20 - 5.40 06/10/2018 [facility] HEMATOLOGY WBC 17.3 3.7 - 10.4 06/10/2018 [facility] HEMATOLOGY Hgb 13.1 12.0 - 16.0 06/10/2018 [facility] HEMATOLOGY MCV 88.0 80.0 - 98.0 06/09/2018 [facility] HEMATOLOGY MCH 28.7 27.0 - 31.0 06/09/2018 [facility] HEMATOLOGY MCHC 32.6 32.0 - 36.0 06/09/2018 [facility] HEMATOLOGY RDW 15.6 11.5 - 14.5 06/09/2018 [facility] HEMATOLOGY Platelet 302 133 - 450 06/09/2018 [facility] HEMATOLOGY MPV 9.3 7.4 - 10.4 06/09/2018 [facility] HEMATOLOGY WBC 21.0 3.7 - 10.4 06/09/2018 [facility] HEMATOLOGY RBC 4.19 4.20 - 5.40 06/09/2018 [facility] HEMATOLOGY Hgb 12.0 12.0 - 16.0 06/09/2018 [facility] HEMATOLOGY Hct 36.9 36.0 - 48.0 06/09/2018 [facility] HEMATOLOGY Monocytes # 1.7 0.0 - 0.8 06/09/2018 [facility] HEMATOLOGY Segs 70.9 45.0 - 75.0 06/09/2018 [facility] HEMATOLOGY Eosinophils 0.1 0.0 - 4.0 06/09/2018 [facility] HEMATOLOGY Lymphocytes 20.9 20.0 - 40.0 06/09/2018 [facility] HEMATOLOGY Monocytes 7.9 2.0 - 12.0 06/09/2018 [facility] HEMATOLOGY Lymphocytes # 4.4 1.0 - 5.5 06/09/2018 [facility] HEMATOLOGY Basophils 0.2 0.0 - 1.0 06/09/2018 [facility] HEMATOLOGY Neutrophils # 14.9 1.5 - 8.1 06/09/2018 [facility] REFERENCE LAB RESULTS [facility] COMMENT 05/23/2018 Result Comment:
Test Ordered: [id number] Nicotine+Cotinine+Anabasine
Nicotine Note: ng/mL BN
None Detected
[...] the Food and Drug Administration.<b r/>Performed At: [facility]
[address], [place] [id number]
Reji Cooper MD Ph:[phone] [facility] BACTERIAL - SEROLOGY MRSA by PCR Negative (05/11/18 1:48 PM) 05/11/2018 [facility] CHEM PANEL B/C Ratio 12 6 - 25 05/11/2018 [facility] CHEM PANEL AGAP 13.6 10.0 - 20.0 05/11/2018 [facility] CHEM PANEL A/G Ratio 0.9 0.7 - 1.6 05/11/2018 [facility] CHEM PANEL Globulin 3.9 2.7 - 4.2 05/11/2018 [facility] CHEM PANEL eGFR 95 05/11/2018 Result Comment: [...] should be multiplied by the estimated BMI. [facility] CHEM PANEL Creatinine Lvl 0.76 0.50 - 1.40 05/11/2018 [facility] CHEM PANEL AST 28 0 - 37 05/11/2018 [facility] CHEM PANEL ALT 30 0 - 65 05/11/2018 [facility] CHEM PANEL Potassium Lvl 3.6 3.5 - 5.1 05/11/2018 [facility] CHEM PANEL Sodium Lvl 140 135 - 145 05/11/2018 [facility] CHEM PANEL BUN 9 7 - 22 05/11/2018 [facility] CHEM PANEL Glucose Lvl 128 70 - 99 05/11/2018 [facility] CHEM PANEL Albumin Lvl 3.4 3.5 - 5.0 05/11/2018 [facility] CHEM PANEL Calcium Lvl 8.8 8.5 - 10.5 05/11/2018 [facility] CHEM PANEL CO2 25 24 - 32 05/11/2018 [facility] CHEM PANEL Chloride Lvl 105 95 - 109 05/11/2018 [facility] CHEM PANEL Total Protein 7.3 6.4 - 8.4 05/11/2018 [facility] CHEM PANEL Alk Phos 82 39 - 136 05/11/2018 [facility] CHEM PANEL Bili Total 0.6 0.2 - 1.3 05/11/2018 [facility] HEMATOLOGY Segs 57.5 45.0 - 75.0 05/11/2018 [facility] HEMATOLOGY Lymphocytes 36.1 20.0 - 40.0 05/11/2018 [facility] HEMATOLOGY Lymphocytes # 5.5 1.0 - 5.5 05/11/2018 [facility] HEMATOLOGY Neutrophils # 8.7 1.5 - 8.1 05/11/2018 [facility] HEMATOLOGY Eosinophils 1.6 0.0 - 4.0 05/11/2018 [facility] HEMATOLOGY Basophils 1.1 0.0 - 1.0 05/11/2018 [facility] HEMATOLOGY Monocytes 3.7 2.0 - 12.0 05/11/2018 [facility] HEMATOLOGY Basophils # 0.2 0.0 - 0.2 05/11/2018 [facility] HEMATOLOGY Eosinophils # 0.2 0.0 - 0.5 05/11/2018 [facility] HEMATOLOGY Monocytes # 0.6 0.0 - 0.8 05/11/2018 [facility] HEMATOLOGY Hct 44.1 36.0 - 48.0 05/11/2018 [facility] HEMATOLOGY RDW 15.6 11.5 - 14.5 05/11/2018 [facility] HEMATOLOGY MCHC 33.8 32.0 - 36.0 05/11/2018 [facility] HEMATOLOGY MCV 85.6 80.0 - 98.0 05/11/2018 [facility] HEMATOLOGY MCH 28.9 27.0 - 31.0 05/11/2018 [facility] HEMATOLOGY Platelet 327 133 - 450 05/11/2018 [facility] HEMATOLOGY MPV 9.2 7.4 - 10.4 05/11/2018 [facility] HEMATOLOGY WBC 15.1 3.7 - 10.4 05/11/2018 [facility] HEMATOLOGY Hgb 14.9 12.0 - 16.0 05/11/2018 [facility] HEMATOLOGY RBC 5.16 4.20 - 5.40 05/11/2018 [facility] HEMATOLOGY PT 12.5 12.0 - 14.7 05/11/2018 [facility] HEMATOLOGY PTT 29.5 22.9 - 35.8 05/11/2018 [facility] HEMATOLOGY INR 0.93 0.85 - 1.17 05/11/2018 [facility] URINE AND STOOL UA Mucus Few /LPF None Seen /LPF 05/11/2018 [facility] URINE AND STOOL UA Bili Negative *NA* (05/11/18 1:48 PM) Negative 05/11/2018 [facility] URINE AND STOOL UA Urobilinogen 2.0 0.1 - 1.0 05/11/2018 [facility] URINE AND STOOL UA Nitrite Negative (05/11/18 1:48 PM) Negative 05/11/2018 [facility] URINE AND STOOL UA Protein Negative (05/11/18 1:48 PM) Negative 05/11/2018 [facility] URINE AND STOOL UA Glucose Negative *NA* (05/11/18 1:48 PM) Negative 05/11/2018 [facility] URINE AND STOOL UA Blood Negative (05/11/18 1:48 PM) Negative 05/11/2018 [facility] URINE AND STOOL UA Ketones Trace *ABN* (05/11/18 1:48 PM) Negative 05/11/2018 [facility] URINE AND STOOL Micro? Performed (05/11/18 1:48 PM) 05/11/2018 [facility] URINE AND STOOL UA Leuk Est Negative (05/11/18 1:48 PM) Negative 05/11/2018 [facility] URINE AND STOOL UA WBC <1 0 - 5 05/11/2018 [facility] URINE AND STOOL UA Sq Epi Occasional /LPF Few /LPF 05/11/2018 [facility] URINE AND STOOL UA pH 5.0 5.0 - 8.0 05/11/2018 [facility] URINE AND STOOL UA Spec Grav 1.018 <=1.030 05/11/2018 [facility] URINE AND STOOL UA RBC 1 0 - 2 05/11/2018 [facility] URINE AND STOOL UA Turbidity Clear (05/11/18 1:48 PM) Clear 05/11/2018 [facility] URINE AND STOOL UA Color Yellow *NA* (05/11/18 1:48 PM) Yellow 05/11/2018 [facility] Culture: Urine <10,000 CFU/mL Group B Streptococcus , No susceptibility performed since these organisms are predictably susceptible to penicillin. If patient is penicillin allergic or susceptibility testing for additional antibiotics is clinically warranted please call the laboratory. <10,000 CFU/mL Skin Cathie 05/11/2018 [facility] Automated blood basophil count (count/volume) Automated blood basophil count (count/volume) 0.1 0.0 - 0.1 01/15/2018 [facility] Automated blood basophil count as percentage of total leukocytes Automated blood basophil count as percentage of total leukocytes 0.5 0.0 - 1.0 01/15/2018 [facility] Automated blood eosinophil count Automated blood eosinophil count 0.1 0.0 - 0.4 01/15/2018 [facility] Automated blood eosinophil count as percentage of total leukocytes Automated blood eosinophil count as percentage of total leukocytes 0.9 0.0 - 6.0 01/15/2018 [facility] Automated blood hematocrit (volume fraction) Automated blood hematocrit (volume fraction) 44.2 34.2 - 44.1 01/15/2018 [facility] Automated blood lymphocyte count as percentage ot total leukocytes Automated blood lymphocyte count as percentage ot total leukocytes 25.2 18.0 - 39.1 01/15/2018 [facility] Automated blood monocyte count as percentage of total leukocytes Automated blood monocyte count as percentage of total leukocytes 7.6 4.4 - 11.3 01/15/2018 [facility] Automated blood neutrophil count Automated blood neutrophil count 9.6 2.1 - 6.9 01/15/2018 [facility] Automated blood platelet count (count/volume) Automated blood platelet count (count/volume) 233 140 - 360 01/15/2018 [facility] Automated blood segmented neutrophil count as percentage of total leukocytes Automated blood segmented neutrophil count as percentage of total leukocytes 65.1 38.7 - 80.0 01/15/2018 [facility] Automated erythrocyte mean corpuscular hemoglobin (mass per erythrocyte) Automated erythrocyte mean corpuscular hemoglobin (mass per erythrocyte) 29.0 28 - 32 01/15/2018 [facility] Automated erythrocyte mean corpuscular hemoglobin concentration measurement (mass/volume) Automated erythrocyte mean corpuscular hemoglobin concentration measurement (mass/volume) 33.9 31 - 35 01/15/2018 [facility] Automated erythrocyte mean corpuscular volume Automated erythrocyte mean corpuscular volume 85.5 81 - 99 01/15/2018 [facility] Automated urine sediment leukocyte count by microscopy (number/high power field) Automated urine sediment leukocyte count by microscopy (number/high power field) <20 0 - 5 01/15/2018 [facility] Bacteria detection in urine sediment by light microscopy Bacteria detection in urine sediment by light microscopy FEW NONE 01/15/2018 [facility] Blood erythrocytes automated count (number/volume) Blood erythrocytes automated count (number/volume) 5.17 3.6 - 5.1 01/15/2018 [facility] Blood hemoglobin measurement (moles/volume) Blood hemoglobin measurement (moles/volume) 15.0 12.0 - 16.0 01/15/2018 [facility] Blood leukocytes automated count (number/volume) Blood leukocytes automated count (number/volume) 14.75 4.8 - 10.8 01/15/2018 [facility] Blood lymphocytes count (number/volume) Blood lymphocytes count (number/volume) 3.7 1.0 - 3.2 01/15/2018 [facility] Blood monocytes automated count (number/volume) Blood monocytes automated count (number/volume) 1.1 0.2 - 0.8 01/15/2018 [facility] Epithelial cells detection in urine sediment by light microscopy Epithelial cells detection in urine sediment by light microscopy MODERATE NONE 01/15/2018 [facility] Erythrocytes detection in urine sediment by light microscopy Erythrocytes detection in urine sediment by light microscopy <20 0 - 5 01/15/2018 [facility] Estimated glomerular filtration rate (GFR) determination Estimated glomerular filtration rate (GFR) determination >60 60 01/15/2018 [facility] Glucose measurement Glucose measurement 96 74 - 118 01/15/2018 [facility] Plasma globulin measurement (mass/volume) Plasma globulin measurement (mass/volume) 3.4 2.3 - 3.5 01/15/2018 [facility] Serum or plasma alanine aminotransferase measurement (enzymatic activity/volume) Serum or plasma alanine aminotransferase measurement (enzymatic activity/volume) 21 0 - 55 01/15/2018 [facility] Serum or plasma albumin measurement (mass/volume) Serum or plasma albumin measurement (mass/volume) 3.7 3.5 - 5.0 01/15/2018 [facility] Serum or plasma albumin/globulin mass ratio Serum or plasma albumin/globulin mass ratio 1.1 0.8 - 2.0 01/15/2018 [facility] Serum or plasma alkaline phosphatase measurement (enzymatic activity/volume) Serum or plasma alkaline phosphatase measurement (enzymatic activity/volume) 51 40 - 150 01/15/2018 [facility] Serum or plasma amylase measurement (enzymatic activity/volume) Serum or plasma amylase measurement (enzymatic activity/volume) 73 25 - 125 01/15/2018 [facility] Serum or plasma anion gap Serum or plasma anion gap 14.5 8 - 16 01/15/2018 [facility] Serum or plasma calcium measurement (mass/volume) Serum or plasma calcium measurement (mass/volume) 9.6 8.4 - 10.2 01/15/2018 [facility] Serum or plasma carbon dioxide, total measurement (moles/volume) Serum or plasma carbon dioxide, total measurement (moles/volume) 23 22 - 29 01/15/2018 [facility] Serum or plasma chloride measurement (moles/volume) Serum or plasma chloride measurement (moles/volume) 102 98 - 107 01/15/2018 [facility] Serum or plasma creatinine measurement (mass/volume) Serum or plasma creatinine measurement (mass/volume) 0.75 0.57 - 1.11 01/15/2018 [facility] Serum or plasma lipase measurement (enzymatic activity/volume) Serum or plasma lipase measurement (enzymatic activity/volume) 115 8 - 78 01/15/2018 [facility] Serum or plasma potassium measurement (moles/volume) Serum or plasma potassium measurement (moles/volume) 3.5 3.5 - 5.1 01/15/2018 [facility] Serum or plasma protein measurement (mass/volume) Serum or plasma protein measurement (mass/volume) 7.1 6.5 - 8.1 01/15/2018 [facility] Serum or plasma sodium measurement (moles/volume) Serum or plasma sodium measurement (moles/volume) 136 136 - 145 01/15/2018 [facility] Serum or plasma total bilirubin measurement (mass/volume) Serum or plasma total bilirubin measurement (mass/volume) 0.4 0.2 - 1.2 01/15/2018 [facility] Serum or plasma urea nitrogen measurement (mass/volume) Serum or plasma urea nitrogen measurement (mass/volume) 9 7 - 26 01/15/2018 [facility] Serum or plasma urea nitrogen/creatinine mass ratio Serum or plasma urea nitrogen/creatinine mass ratio 12 6 - 25 01/15/2018 [facility] Specific gravity of Urine by Test strip Specific gravity of Urine by Test strip 1.010 1.010 - 1.025 01/15/2018 [facility] Urine clarity Urine clarity CLOUDY CLEAR 01/15/2018 [facility] Urine color determination Urine color determination YELLOW YELLOW 01/15/2018 [facility] Urine erythrocytes detection Urine erythrocytes detection 2+ NEGATIVE 01/15/2018 [facility] Urine glucose detection Urine glucose detection NEGATIVE NEGATIVE 01/15/2018 [facility] Urine human chorionic gonadotropin (hCG) detection Urine human chorionic gonadotropin (hCG) detection NEGATIVE NEGATIVE 01/15/2018 [facility] Urine ketones detection by automated test strip Urine ketones detection by automated test strip 2+ NEGATIVE 01/15/2018 [facility] Urine leukocyte esterase detection by dipstick Urine leukocyte esterase detection by dipstick 1+ NEGATIVE 01/15/2018 [facility] Urine nitrite detection Urine nitrite detection NEGATIVE NEGATIVE 01/15/2018 [facility] Urine pH measurement by automated test strip Urine pH measurement by automated test strip 6 5 - 7 01/15/2018 [facility] Urine protein measurement by test strip (mass/volume) Urine protein measurement by test strip (mass/volume) NEGATIVE NEGATIVE 01/15/2018 [facility] Urine total bilirubin measurement (mass/volume) Urine total bilirubin measurement (mass/volume) NEGATIVE NEGATIVE 01/15/2018 [facility] Urine urobilinogen measurement by test strip (mass/volume) Urine urobilinogen measurement by test strip (mass/volume) 0.2 0.2 - 1 01/15/2018 [facility] Red Cell Distribution Width 14.6 11.7 - 14.4 01/15/2018 [facility] IM GRANULOCYTES % 0.7 0.0 - 1.0 01/15/2018 [facility] Absolute Immature Granulocyte (auto 0.10 0 - 0.1 01/15/2018 [facility] Aspartate Amino Transf (AST/SGOT) 23 5 - 34 01/15/2018 [facility] Influenza virus A and B antigen identification by immunofluorescence Influenza virus A and B antigen identification by immunofluorescence NEGATIVE NEGATIVE 09/18/2017 [facility] Pathology Reports No Data Provided for This [...] knee arthroplasty without evidence of complication. 06/09/2018 [facility] Knee 1-2 Views unilateral DX CLINICAL HISTORY: [...] knee arthroplasty without evidence of complication. 06/08/2018 [facility] Consultation Notes No Data Provided for This Section Discharge Summaries No Data Provided for This Section History and Physicals No Data Provided for This Section Vital Signs Vital Sign Value Date Comments Source Heart Rate 85 06/11/2018 [facility] Temperature Oral (F) 98.3 F 06/11/2018 [facility] Respitory Rate 16 06/11/2018 [facility] Systolic (mm Hg) 142 06/11/2018 [facility] Diastolic (mm Hg) 82 06/11/2018 [facility] Systolic (mm Hg) 130 06/11/2018 [facility] Diastolic (mm Hg) 81 06/11/2018 [facility] Respitory Rate 18 06/11/2018 [facility] Heart Rate 99 06/11/2018 [facility] Temperature Oral (F) 98.7 F 06/11/2018 [facility] Heart Rate 76 06/11/2018 [facility] Systolic (mm Hg) 110 06/11/2018 [facility] Diastolic (mm Hg) 77 06/11/2018 [facility] Respitory Rate 16 06/11/2018 [facility] Temperature Oral (F) 98.5 F 06/11/2018 [facility] BMI Calculated 39.05 06/08/2018 [facility] Weight 100 06/08/2018 [facility] Height 160.02 cm 06/08/2018 [facility] Weight 96.818 05/11/2018 [facility] BMI Calculated 37.81 05/11/2018 [facility] Height 160.02 cm 05/11/2018 [facility] Encounters Location Location Details Encounter Type Encounter Number Reason For Visit Attending Provider ADM Date DC Date Status Source Departed Emergency Room [id number] FELI ALEXANDER MD 09/18/2017 09/18/2017 [facility] Departed Emergency Room [id number] FELI ALEXANDER MD 01/15/2018 01/15/2018 [facility] Outpatient Imaging [facility] Di[facility] [id number] [place] 04/26/2018 04/27/2018 [facility] Inpatient [id number] [place] 06/08/2018 06/12/[address] [facility] [place] OP Therapy Patients [id number] [place] 07/10/2018 08/09/2018 [facility] [place] [facility] [place] OP Therapy Patients [id number] [place] 08/21/2018 09/20/2018 [facility] [place] Procedures Procedure Code Date Perfomer Comments Source Computed tomography of abdomen and pelvis with contrast [id number] 01/15/2018 [facility] X-ray of chest, two views [id number] 09/18/2017 [facility] Procedure<sup>1</sup> [id number] Rotator cuff ear [facility] [place] Tonsillectomy [id number] [facility] Procedure<sup>1</sup> [id number] Rotator cuff ear [facility] Tonsillectomy [id number] [facility] Procedure<sup>1</sup> [id number] Rot[facility] ear [facility] [facility] Tonsillectomy [id number] [facility] Assessment and Plan Assessment and Plan Date Source Extracted from:Title: Orthopedic surgery Author: Yordy Mae MD Date: 06/10/18 Progress Note - Daily [facility] Completed: Jun, 19:42 by Yordy Mae MD RM: [id number] - 00, [id number] MARTINEZ 48y (: 1970) F Attending: [place] MD Service: Orthopedic Reason for Admission: [id number], [id number] RIGHT KNEE OSTEOARTHRITIS Working DRG: Code status: [...] discharge home tomorrow on recommended regimen 06/12/2018 [facility] Plan of Care Plan of Care Date Source Discharge Date 01/15/18 6:40pm Disposition HOME, SELF-CARE Condition at Discharge Stable Instructions/Education Provided Abdominal Pain - Adult Urinary Tract Infection - Women Forms Provided Work/School Excuse Prescriptions See Medication Section Additional Instructions/Education DRINK PLEANTY OF FLUIDS TAKE ALL MEDICATIONS PRESCRIBED, FOLLOW UP WITH YOUR FAMILY 01/15/2018 [facility] Social History Social History Date Source Social History TypeResponse Smoking Status Former smoker; Previous treatment: None; Exposure to Tobacco Smoke None; Cigarette Smoking Last 365 Days No; Reg Smoking Cessation Counseling No1 entered on: 06/08/18 1Patient said she just quit smoking 2 days ago, on Chantix. 06/08/2018 [facility] [place] Social History TypeResponse Smoking Status Former smoker; Previous treatment: None; Exposure to Tobacco Smoke None; Cigarette Smoking Last 365 Days No; Reg Smoking Cessation Counseling No1 entered on: 06/08/18 1Patient said she just quit smoking 2 days ago, on Chantix. 06/08/2018 [facility] Social History TypeResponse Smoking Status Former smoker; Previous treatment: None; Exposure to Tobacco Smoke None; Cigarette Smoking Last 365 Days No; Reg Smoking Cessation Counseling No1 entered on: 06/08/18 1Patient said she just quit smoking 2 days ago, on Chantix. 06/08/2018 [facility] Social History Problem Response Recorded Date/Time Onset [...] Stop Date Current every day smoker 01/15/2018 [facility] Family History No Data Provided for This Section Advance Directives Order Name Results Value Date Source Advance Directives Advance Directives Directive Response Recorded Date/Time Does the patient have an advance directive? No 02/11/14 9:46pm If yes, is advance directive on file with [facility]? No 02/11/14 9:46pm If not on file with [facility] will patient provide a copy? Yes 09/10/15 6:37pm Do you have a Directive to Physician? No 01/15/18 1:37pm Do you have a Medical Power of Horticulture Worker? No 01/15/18 1:37pm Do you have an [...] rights and responsibilities? Yes 01/15/18 1:37pm 01/15/2018 [facility] Functional Status No Data Provided for This Section
[2019-01-23 20:00] VITALS: BP 120/80
[2019-01-23] MEDS ORDERED: VITAMIN D1000 UNI1 PO (20:24)
[2019-01-23] MEDS ORDERED: EXCEDRIN MIGRA1 EAC3 PO (20:24)
[2019-01-23] MEDS ORDERED: LYRICA75 MG PO (20:24)
[2019-01-23] MEDS ORDERED: CBD oil SL (20:24)
[2019-01-23] MEDS ORDERED: ACETAMINOPHEN PO PRN (20:30)
[2019-01-23] MEDS ORDERED: CAFFEINE PO PRN (20:30)
[2019-01-23] MEDS ORDERED: [UNRECOGNIZED DRUG - OTHER] PO PRN (20:30)
[2019-01-23] MEDS ORDERED: ASPIRIN PO PRN (20:30)
[2019-01-23] MEDS ORDERED: CBD OIL SL PRN (20:30)
[2019-01-23] MEDS: PREGABALIN 75 MG CAP PO SCH (21:19)
[2019-01-23] MEDS: ACETAMINOPHEN/ASPIRIN/CAFFEINE 1 EA TAB PO PRN (21:19)
[2019-01-23 23:00] VITALS: BP 120/80
[2019-01-24] VITALS (7 sets, daily range): BP systolic 103–136; BP diastolic 52–77
[2019-01-24] MEDS: ACETAMINOPHEN/ASPIRIN/CAFFEINE 1 EA TAB PO PRN ×3 (04:42→22:20)
[2019-01-24 05:08] LABS: BASOPHILS # (AUTO) 0.1 (0.0-0.1); BASOPHILS % 0.7 % (0.0-1.0); EOSINOPHILS # (AUTO) 0.3 (0.0-0.4); HEMATOCRIT 39.6 % (34.2-44.1); HEMOGLOBIN 13.1 g/dL (12.0-16.0); LYMPHOCYTES # (AUTO) 6.1 (1.0-3.2); LYMPHOCYTES % 41.5 % (18.0-39.1); MEAN CORPUSCULAR HEMOGLOBIN 29.5 pg (28-32); MEAN CORPUSCULAR HGB CONC 33.1 g/dL (31-35); MEAN CORPUSCULAR VOLUME 89.2 fL (81-99); MONOCYTES # (AUTO) 0.8 (0.2-0.8); MONOCYTES % 5.3 % (4.4-11.3); NEUTROPHILS # (AUTO) 7.4 (2.1-6.9); NEUTROPHILS % 50.1 % (38.7-80.0); PLATELET COUNT 291 x10e3/uL (140-360); RED BLOOD COUNT 4.44 x10e6/uL (3.6-5.1); RED CELL DISTRIBUTION WIDTH 14.3 % (11.7-14.4)
[2019-01-24 05:33] LABS: ALANINE AMINOTRANSFERASE 23 IU/L (0-55); ALBUMIN 2.9 g/dL (3.5-5.0); ALKALINE PHOSPHATASE 57 IU/L (40-150); ANION GAP 11.9 mmol/L (8-16); BLOOD UREA NITROGEN 11 mg/dL (7-26); BUN/CREATININE RATIO 16 (6-25); CARBON DIOXIDE 20 mmol/L (22-29); CHLORIDE 110 mmol/L (98-107); CHOL/HDL RATIO 3.8 (3.0-3.6); CHOLESTEROL 177 MD/DL (0-199); CREATININE, SERUM 0.69 mg/dL (0.57-1.11); EST GLOMERULAR FILTRATION RATE > 60 ML/MIN (60-); GLUCOSE 97 mg/dL (74-118); HDL CHOLESTEROL 46 MG/DL (40-60); LDL CHOLESTEROL 105 MG/DL (60-130); POTASSIUM 3.9 mmol/L (3.5-5.1); SODIUM 138 mmol/L (136-145); TRIGLYCERIDES 132 MG/DL (0-149)
[2019-01-24] MEDS: FAMOTIDINE 20 MG/2 ML VIAL IV SCH (06:28)
[2019-01-24 06:38] LABS: CREATINE KINASE MB 0.6 ng/mL (0-5.0)
[2019-01-24] MEDS: ONDANSETRON HCL INJ 2MG/ML 2ML 2 MG/ML VIAL IV PRN ×2 (07:59→23:35)
[2019-01-24] MEDS: CHOLECALCIFEROL 1,000 UNIT TAB PO SCH (07:59)
[2019-01-24] MEDS: PREGABALIN 75 MG CAP PO SCH ×3 (07:59→20:01)
[2019-01-24] MEDS: MORPHINE SULFATE 2 MG/ML SYR 1ML IV PRN ×2 (07:59→23:35)
[2019-01-24] MEDS: ASPIRIN 81 MG ENTERIC COATED PO SCH (07:59)
--- NOTE | 2019-01-24 08:38 | NUR ---
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
[2019-01-24 09:31] LABS: EOSINOPHILS % (MANUAL) 2 % (0-7); LYMPHOCYTES % (MANUAL) 42 % (19-48); MONOCYTES % (MANUAL) 9 % (3.4-9.0); NEUTROPHILS % (MANUAL) 47 % (40-74); PLATELET ESTIMATE ADEQUATE; PLATELET MORPHOLOGY COMMENT FEW LARGE; RBC MORPHOLOGY COMMENT NORMAL
--- NOTE | 2019-01-24 12:38 | NUR ---
DR. NGUYEN IS ON VACATION FOR A WEEK, CALLED DR. REINA Y, ASKED HIM WHAT HE WANT TO DO, DR. REINA STATED JUST CALL ME WITH THE MRI RESULTS.
--- NOTE | 2019-01-24 12:42 | Diagnostic Imaging Report ---
MRI BRAIN WO HISTORY: Right-sided weakness, right facial drooping COMPARISON: Head CT 01/23/2019; report from brain MRI dated 11/02/2013 (images not available at time of dictation) TECHNIQUE: Sagittal T2, axial T2, axial T1, axial T2/FLAIR, axial gradient echo (or susceptibility weighted), coronal T2/FLAIR, and axial diffusion weighted MR images of the brain were obtained without contrast. Motion artifacts obscure some details. DISCUSSION: Scalp/bone marrow: Unremarkable. Brain sulci: Appropriate for patient's age. Ventricles: Normal in size and configuration. No hydrocephalus. Extra-axial spaces: No masses or fluid collections. Parenchyma: Small T2/FLAIR hyperintense focus in the left gnocalves radiata is nonspecific; there is no mass effect. Otherwise, no mass, hemorrhage, or acute vascular insults. Vessels: Normal flow voids in major arteries and veins. Sellar/Suprasellar region: No abnormalities. Craniocervical junction: No abnormalities. Incidental findings: None. IMPRESSION: 1. No acute intracranial abnormalities. 2. Nonspecific small T2/FLAIR hyperintense focus in the left goncalves radiata could be due to minimal microvascular ischemic change, migraine related change, or prior demyelination in the appropriate clinical setting. 3. No other intracranial abnormalities. Signed by: Dr. Nato Pride M.D. on 01/24/2019 12:38 PM
[2019-01-24] MEDS ORDERED: SUMATRIPTAN SUCCINATE 6 MG/0.5 ML VIAL SC NR (13:30)
[2019-01-24] MEDS ORDERED: SUMATRIPTAN SUCCINATE 6 MG/0.5 ML VIAL SC ONE (15:30)
--- NOTE | 2019-01-24 19:00 | NUR ---
SHIFT CHANGE REPORT GIVEN TO WILLIE Hitchcock RN.
--- NOTE | 2019-01-24 19:15 | NUR ---
Bedside report and walking rounds complete. Pt resting in bed and in no apparent distress. All safety measured ensured and pt call [facility] near.
[2019-01-25] VITALS: BP 144/66
[2019-01-25 04:00] VITALS: BP 107/61
--- NOTE | 2019-01-25 07:00 | NUR ---
BEDSIDE SHIFT REPORT RECEIVED FROM WILLIE GRAY. PT DENIES NEEDS AT THIS TIME.
--- NOTE | 2019-01-25 07:38 | NUR ---
Bedside report and walking rounds complete with day shift RN
[2019-01-25 08:09] VITALS: BP 128/78
[2019-01-25] MEDS: PREGABALIN 75 MG CAP PO SCH (08:31)
[2019-01-25] MEDS: ASPIRIN 81 MG ENTERIC COATED PO SCH (08:31)
[2019-01-25] MEDS: CHOLECALCIFEROL 1,000 UNIT TAB PO SCH (08:31)
[2019-01-25] MEDS: ACETAMINOPHEN/ASPIRIN/CAFFEINE 1 EA TAB PO PRN (10:09)
[2019-01-25 10:40] VITALS: BP 128/78
[2019-01-25] MEDS ORDERED: SUMATRIPTAN SUCCINATE 6 MG/0.5 ML VIAL SC ONE (12:00)
[2019-01-25 12:30] VITALS: BP 129/65
[2019-01-25] MEDS ORDERED: IMITREX25 MG (12:34)
[2019-01-25 13:06] VITALS: BP 128/78
--- NOTE | 2019-01-26 06:03 | Discharge Summary ---
PRIMARY CARE DOCTOR: Dr. Uriel Chin. FINAL DIAGNOSIS: Most likely atypical migraine. SECONDARY DIAGNOSES: 1. Chronic back pain, status post nerve ablations. 2. Preleukemia. 3. Fibromyalgia. PROCEDURES/STUDIES PERFORMED: 1. MRI of the brain. 2. Head CT. CONSULTANTS: None. HISTORY: Per [facility] HOSPITAL COURSE: The patient was admitted with headache, photophobia, right-sided numbness, slight weakness and also recurrence of back pain. MRI shows nonspecific small T2 FLAIR hyperintense focus in the left goncalves radiata, could be due to minimal microvascular ischemic changes, migraine related change, or prior demyelination. Unfortunately, the only neurologist at this hospital is on vacation, no is covering for her. At this time since the stroke is ruled out, it is appropriate to proceed with outpatient evaluation. I have printed out the MRI report and gave it to her. She will follow up with [facility] neurologist as soon as possible. I have also updated her primary care doctor about this as well. As far as her back pain, a few months ago the patient had a procedure done to ablate the nerve that was causing the back pain and briefly it went away, but now is coming back. The patient is worried about diskitis based on her wine consultant search. I have told her that given the fact the patient is afebrile and her leukocytosis came down on its own with antibiotics, now this back to her pre-leukemia baseline of 14. I highly doubt that this is a diskitis. I have asked the patient to follow up with her neurosurgeon, who did the procedure. The patient was seen and examined today. CONDITION ON DISCHARGE: Improved. DISCHARGE MEDICATIONS: Please see medication reconciliation form. Yiching MD DACIA Gilbert/ARGELIA /[id number] cc: Uriel Chin M.D.
== END 2019-01-25 13:15 | disposition home or self-care (01) ==
LOC: ER 14:17 → ERHOLD 17:24 → MED/SURG2 18:37
PROVIDERS: ADMIT Internal Medicine; ATTEND Internal Medicine
DX: G89.29 Other chronic pain (principal); M54.9 Dorsalgia, unspecified; D46.9 Myelodysplastic syndrome, unspecified; M79.7 Fibromyalgia; G43.909 Migraine, unspecified, not intractable, without status migrainosus; D72.829 Elevated white blood cell count, unspecified; E87.2 Acidosis
CPT/HCPCS: 36415 ×2; 70450; 70551; 71045; 80053 ×2; 80061; 80307; 81001; 82550 ×2; 82553 ×2; 83735; 84443; 84484 ×2; 85025 ×2; 85610; 85730; 87086; 93005; 97110; 97116; 97139; 97161; 99285; G0378 ×3; J2270; J2405 ×2; J3030 ×2; J7030 ×2; J8597

== ENCOUNTER 2019-03-02 14:51 | Emergency (ER) | payer OTHER ==
[~2019-03-02] VITALS: Ht 160 cm; Wt 103.4 kg
[~2019-03-02 14:51] MED LIST changes: +CBD oil SL; +EXCEDRIN MIGRA1 EAC3 PO; +IMITREX25 MG; +LYRICA75 MG PO; +VITAMIN D1000 UNI1 PO
--- OUTSIDE RECORDS SUMMARY | 2019-03-02 14:54 | XMS REPORT | Clinical Summary ---
Author Author REBECA DOZ Organization [facility] Address Unknown Phone Unavailable Care Team Providers Care Steam Trap Man Name Role Phone Uriel Chin MD PCP [...] Not on file Results Not on fileafter 03/01/2018 Insurance Payer Benefit Subscriber ID Type Phone Address Plan / Group [facility] [employer] HMO xxxxxxxxx HMO/POS CARE POS SELECT CHOICE Advance Directives For more information, please contact: [phone] [place] [address] Date Inactivated Comments Code Status Date Activated 02/28/2016 2:15 AM Full Code 02/27/2016 8:41 PM This code status was determined by: Patient 01/28/2016 8:51 PM Full Code 01/24/2016 11:16 PM This code status was determined by: Patient 01/24/2016 11:16 PM Full Code 01/24/2016 4:42 PM This code status was determined by: Patient
--- OUTSIDE RECORDS SUMMARY | 2019-03-02 14:55 | XMS REPORT | Summary of Care ---
Author Author [facility] Address Unknown Phone Unavailable Encounter [facility] Dorene(FIN) [phone] Date(s): 07/10/18 - 08/08/18 [facility] Encounter Diagnosis Unilateral primary osteoarthritis, right knee (Final) - 08/24/18 Pain in left knee (Final) - Muscle weakness (generalized) (Final) - Stiffness of right knee, not elsewhere classified (Final) - Difficulty in walking, not elsewhere classified (Final) - Presence of right artificial knee joint (Final) - Discharge Disposition: Home or Self [...]
--- OUTSIDE RECORDS SUMMARY | 2019-03-02 14:55 | XMS REPORT | Continuity of Care Document ---
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 Phone [employer] Information [employer] Unavailable Unavailable Problems Problem Status Onset Date Classification Date Reported Comments Source Unilateral primary osteoarthritis, right knee 08/25/2018 02/26/2019 [facility] [place],[facility] KNEE Active 06/08/2018 [facility] [id number], [id number] RIGHT KNEE OSTEOARTHRITIS Active 04/24/2018 [facility] M17.11 - UNILATERAL PRIMARY OSTEOARTHRI Active 04/18/2018 [facility] PAIN R KNEE Active 07/03/2017 [facility] [place] Other complications of foreign body accidentally left in body following surgical operation, initial encounter 12/29/2018 [facility] Pain in left leg 12/29/2018 [facility] Osteoarthritis1 Active Problem 12/29/2018 right knee [facility] [place] Pain in left knee 02/26/2019 [facility] [place] Muscle weakness (generalized) 02/26/2019 [facility] [place] Stiffness of right knee, not elsewhere classified 02/26/2019 [facility] [place] Difficulty in walking, not elsewhere classified 02/26/2019 [facility] [place] Presence of right artificial knee joint 02/26/2019 [facility] [place] Osteoarthritis (disorder) Active Problem 02/26/2019 right knee [facility] [place] ILLNESS, UNSPECIFIED Active [facility] Medications Medication Details Route Status Patient Instructions Ordering Provider Order Date Source Protonix 40 mg, 1 tab, Route: PO, Drug form: ECTAB, Before Dinner, Dosing Weight 100, kg, Start date: 06/11/18 16:30:00 [employer], Duration: 30 day, Stop date: 07/10/18 16:30:00 CSTNotes: Tablet should not be chewed or crushed. (Same as: Protonix) Inactive 06/11/2018 [facility] 12 HR Oxycodone Hydrochloride 10 MG Extended Release Tablet [Oxycontin] 10 mg=1 tab, PO, Q12H, # 30 tab, 0 Refill(s), given to patient Active 06/11/2018 [facility] Naproxen 500 mg, 1 tab, Route: PO, Drug form: TAB, BID, Dosing Weight 100, kg, Start date: 06/11/18 9:00:00 [employer], Duration: 30 day, Stop date: 07/10/18 17:00:00 CSTNotes: (Same as: Naprosyn) Take with food. Inactive 06/11/2018 [facility] gabapentin 300 MG Oral Capsule 300 mg, Route: PO, Drug form: CAP, Daily, Dosing Weight 100, kg, (CrCl No Longer Active 06/11/2018 [facility] ketOROLAC 30 mg/mL injectable solution 30 mg, 1 mL, Route: IV, Drug form: INJ, ONCE, Start date: 06/10/18 23:30:00 [employer], Stop date: 06/10/18 23:30:00 CSTNotes: (Same as:Toradol) IV bolus must be given >15 seconds. Give IM administration slowly and deeply into the muscle. Not for use > 4 days MEDICATION WASTE Product Size: 30 mg Product Wasted: ___ mg No Longer Active 06/11/2018 [facility] aspirin 81 mg tablet, enteric coated 81 mg, 1 tab, Route: PO, Drug form: ECTAB, Q12H, Start date: 06/10/18 21:00:00 [employer], Duration: 30 day, Stop date: 07/10/18 9:00:00 CSTNotes: Do not crush or chew. (Same As: Ecotrin) No Longer Active 06/11/2018 [facility] Ketorolac 30 mg, 1 mL, Route: IVP, Drug form: INJ, ONCE, Dosing Weight 100, kg, Start date: 06/10/18 18:52:00 [employer], Stop date: 06/10/18 18:52:00 CSTNotes: (Same as:Toradol) IV bolus must be given >15 seconds. Give IM administration slowly and deeply into the muscle. Not for use > 4 days MEDICATION WASTE Product Size: 30 mg Product Wasted: ___ mg Inactive 06/11/2018 [facility] Oxycontin 20 mg, 1 tab, Route: PO, Drug form: ERTAB, Q12H, Dosing Weight 100, kg, Start date: 06/10/18 18:30:00 [employer], Duration: 30 day, Stop date: 07/10/18 6:30:00 CSTNotes: Do not crush or chew. (Same as: OxyContin) No Longer Active 06/11/2018 [facility] naloxone 0.4 mg, 1 mL, Route: IVP, Drug form: INJ, Q2MIN, PRN Narcotic Reversal, Start date: 06/10/18 17:29:00 [employer], Duration: 30 day, Stop date: 07/10/18 17:28:00 CSTNotes: Same as Narcan No Longer Active 06/10/2018 [facility] Ketorolac 30 mg, Route: IM, Q8H, Dosing Weight 100, kg, PRN Pain Score 7-10, Start date: 06/10/18 15:19:00 [employer], Duration: 4 day, Stop date: 06/14/18 15:18:00 [employer] Inactive 06/10/2018 [facility] ropivacaine Route: NERVE BLOCK, Start date: 06/10/18 8:29:00 [employer] 400 mL, Drug Form: INJ, Dosing Weight 100, kg, Duration: 30 day, Stop date: 07/10/18 8:28:00 [employer], 8 ml/hrNotes: Final concentration: Ropivacaine 0.2% 400 ml No Longer Active 06/10/2018 [facility] Robaxin 500 mg, Route: PO, Drug form: TAB, TID, Dosing Weight 100, kg, Start date: 06/09/18 13:00:00 [employer], Duration: 30 day, Stop date: 07/09/18 9:00:00 [employer] Inactive 06/09/2018 [facility] Robaxin 500 mg, 1 tab, Route: PO, Drug form: TAB, TID, Dosing Weight 100, kg, PRN Leg Cramps, Start date: 06/09/18 9:43:00 [employer], Duration: 30 day, Stop date: 07/09/18 9:42:00 CSTNotes: (Same as:Robaxin) No Longer Active 06/09/2018 [facility] Methocarbamol 500 MG Oral Tablet [Robaxin] 500 mg=1 tab, PO, Q6H, PRN Spasms, X 7 day, # 28 tab, 0 Refill(s), Pharmacy: [facility] [id number] [facility] No Longer Active 06/09/2018 [facility] Lidocaine Hydrochloride 0.05 MG/MG Transdermal Patch [Lidoderm] 1 patch, Route: TOP, ONCE, Drug form: FILM, Start date: 06/09/18 8:28:00 [employer], Stop date: 06/09/18 8:28:00 [employer], Remove after 12 hours Inactive 06/09/2018 [facility] Robaxin 500 mg, 5 mL, Route: IV, ONCE, Dosing Weight 100, kg, Priority: NOW, Start date: 06/09/18 8:25:00 [employer], Stop date: 06/09/18 8:25:00 CSTNotes: (Same as:Robaxin) Inactive 06/09/2018 [facility] midazolam (ANES) Route: IV, Drug form: SOLN, ONCE, Stop date: 06/09/18 7:48:00 [employer] Inactive 06/09/2018 [facility] lidocaine (ANES) Route: IV, Drug form: INJ, ONCE, Stop date: 06/09/18 7:48:00 [employer] Inactive 06/09/2018 [facility] fentaNYL (ANES) Route: IV, Drug form: INJ, ONCE, Stop date: 06/09/18 7:48:00 [employer] Inactive 06/09/2018 [facility] propofol (ANES) Route: IV, Drug form: INJ, ONCE, Stop date: 06/09/18 7:48:00 [employer] Inactive 06/09/2018 [facility] ondansetron (ANES) Route: IV, Drug form: INJ, ONCE, Stop date: 06/09/18 7:48:00 [employer] Inactive 06/09/2018 [facility] ketOROLAC (ANES) IV, ONCE Inactive 06/09/2018 [facility] ceFAZolin (ANES) Route: IV, Drug form: INJ, ONCE, Stop date: 06/09/18 7:48:00 [employer] Inactive 06/09/2018 [facility] dexamethasone (ANES) Route: IV, Drug form: INJ, ONCE, Stop date: 06/09/18 7:48:00 [employer] Inactive 06/09/2018 [facility] Midazolam 1 mg, 1 mL, Route: IVP, Drug form: INJ, Q5Min, Dosing Weight 100, kg, PRN Anxiety, Start date: 06/09/18 7:23:00 [employer], Duration: 2 doses or times, Stop date: Limited # of timesNotes: (Same as: Versed) MEDICATION WASTE Product Size: 5 mg Product Wasted: ___ mg Inactive 06/09/2018 [facility] Flumazenil 0.2 mg, 2 mL, Route: IVP, Drug form: INJ, PRN, Dosing Weight 100, kg, PRN Benzodiazepine Reversal, Initial dose, Start date: 06/09/18 7:23:00 [employer], Duration: 30 day, Stop date: 07/09/18 7:22:00 CSTNotes: (Same as: Romazicon) Inactive 06/09/2018 [facility] Naloxone 0.4 mg, 1 mL, Route: IVP, Drug form: INJ, Q2MIN, Dosing Weight 100, kg, PRN Narcotic Reversal, Start date: 06/09/18 7:23:00 [employer], Duration: 8 doses or times, Stop date: Limited # of timesNotes: Same as Narcan Inactive 06/09/2018 [facility] Acetaminophen 1,000 mg, 2 tab, Route: PO, Drug form: TAB, ONCE, Dosing Weight 100, kg, PRN Pain Score 1-3, Start date: 06/09/18 7:23:00 CSTNotes: Max acetaminophen 4000 mg/day (4 gm/day). (Same as: Tylenol Extra Strength) Inactive 06/09/2018 [facility] Ketorolac 30 mg, 1 mL, Route: IVP, Drug form: INJ, ONCE, Dosing Weight 100, kg, Start date: 06/09/18 7:23:00 [employer], Stop date: 06/09/18 7:23:00 CSTNotes: (Same as:Toradol) IV bolus must be given >15 seconds. Give IM administration slowly and deeply into the muscle. Not for use > 4 days MEDICATION WASTE Product Size: 30 mg Product Wasted: ___ mg Inactive 06/09/2018 [facility] Meperidine 12.5 mg, 0.25 mL, Route: IVP, Drug form: INJ, Q30Min, Dosing Weight 100, kg, PRN Other -See Comment, For shivering, Start date: 06/09/18 7:23:00 [employer], Duration: 2 doses or times, Stop date: Limited # of timesNotes: (Same as: Demerol) "Use Precaution in Elderly, Seizure disorders, and Renal impairment" Inactive 06/09/2018 [facility] Ondansetron 4 mg, 2 mL, Route: IVP, Drug form: INJ, ONCE, Dosing Weight 100, kg, PRN Nausea & Vomiting, Start date: 06/09/18 7:23:00 CSTNotes: (Same as: Zofran) MEDICATION WASTE Product Size: 4 mg Pro duct Wasted: ___ mg Inactive 06/09/2018 [facility] Promethazine 6.25 mg, 0.25 mL, Route: IVPB, ONCE, Dosing Weight 100, kg, PRN Nausea & Vomiting, Start date: 06/09/18 7:23:00 CSTNotes: Do not give IV push. (Same as: Phenergan) Inactive 06/09/2018 [facility] Diphenhydramine 12.5 mg, 0.25 mL, Route: IVP, Drug form: INJ, Q6H, Dosing Weight 100, kg, PRN Itching, Start date: 06/09/18 7:23:00 [employer], Duration: 30 day, Stop date: 07/09/18 7:22:00 CSTNotes: (Same as: Benadryl) Inactive 06/09/2018 [facility] Hydromorphone 0.5 mg, Route: IVP, Q5Min, Dosing Weight 100, kg, PRN Pain Score 7-10, Start date: 06/09/18 7:23:00 [employer], Duration: 4 doses or times, Stop date: Limited # of times Inactive 06/09/2018 [facility] Morphine 2 mg, 0.5 mL, Route: IVP, Drug form: SOLN, Q5Min, Dosing Weight 100, kg, PRN Pain Score 4-6, Start date: 06/09/18 7:23:00 [employer], Duration: 5 doses or times, Stop date: Limited # of timesNotes: (Same as :MORPhine Sulfate) Inactive 06/09/2018 [facility] Hydralazine 10 mg, 0.5 mL, Route: IVP, Drug form: INJ, Q20Min, Dosing Weight 100, kg, PRN Elevated BP, Start date: 06/09/18 7:23:00 [employer], Duration: 2 doses or times, Stop date: Limited # of times Inactive 06/09/2018 [facility] Metoprolol 1 mg, 1 mL, Route: IVP, Drug form: INJ, Q5Min, Dosing Weight 100, kg, PRN Other -See Comment, Start date: 06/09/18 7:23:00 [employer], Duration: 5 doses or times, Stop date: Limited # of timesNotes: (Same as: Lopressor) Push over 2 minutes Inactive 06/09/2018 [facility] Labetalol 10 mg, 2 mL, Route: IVP, Drug form: INJ, Q5Min, Dosing Weight 100, kg, PRN Elevated BP, Start date: 06/09/18 7:23:00 [employer], Duration: 5 doses or times, Stop date: Limited # of times Inactive 06/09/2018 [facility] ANES Enalaprilat 0.625 mg, 0.5 mL, Route: IVP, Drug form: INJ, Q5Min, Dosing Weight 100, kg, PRN Elevated BP, Start date: 06/09/18 7:23:00 [employer], Duration: 4 doses or times, Stop date: Limited # of timesNotes: (Same as: Vasotec-IV) Inactive 06/09/2018 [facility] Lactated Ringers Injection IV (ANES) 1000 mL Route: IV, Total Volume: 1,000, Start date: 06/09/18 7:05:00 [employer], Stop date: 06/09/18 8:05:00 [employer] Inactive 06/09/2018 [facility] Mupirocin 1 appl, Route: NASAL, Q12H, Drug form: OINT, Start date: 06/08/18 21:00:00 [employer], Duration: 30 day, Stop date: 07/08/18 9:00:00 [employer] No Longer Active 06/09/2018 [facility] pregabalin 150 mg, 2 cap, Route: PO, Drug form: CAP, TID, Dosing Weight 100, kg, Start date: 06/08/18 20:30:00 [employer], Duration: 30 day, Stop date: 07/08/18 20:00:00 CSTNotes: (Same as: Lyrica) No Longer Active 06/09/2018 [facility] Ondansetron 4 MG Oral Tablet [Zofran] 4 mg=1 tab, PO, Q6H, PRN Nausea/Vomiting, # 30 tab, 0 Refill(s), Pharmacy: [place] [id number] [facility] Active 06/08/2018 [facility] celecoxib 200 mg oral capsule 200 mg=1 cap, PO, Q12H, # 30 cap, 0 Refill(s), Pharmacy: [place] [id number] [facility] Active 06/08/2018 [facility] Aspirin 325 MG Oral Tablet 325 mg=1 tab, PO, Q12H, # 50 tab, 0 Refill(s), Pharmacy: [place] [id number] [facility] Active 06/08/2018 [facility] celecoxib 200 mg, 1 cap, Route: PO, Drug form: CAP, Q12H, Dosing Weight 96.818, kg, Start date: 06/08/18 17:00:00 [employer], Duration: 30 day, Stop date: 07/08/18 5:00:00 CSTNotes: NSAID. Please check indication. Not for seizure. (Same As: CeleBREX) No Longer Active 06/08/2018 [facility] Docusate 100 mg, 1 cap, Route: PO, Drug form: CAP, BID, Dosing Weight 96.818, kg, Start date: 06/08/18 17:00:00 [employer], Duration: 30 day, Stop date: 07/08/18 9:00:00 CSTNotes: (Same as: Colace) (Do Not Crush) No Longer Active 06/08/2018 [facility] gabapentin 300 mg, 1 cap, Route: PO, Drug form: CAP, Q8H, Dosing Weight 96.818, kg, Start date: 06/08/18 16:00:00 [employer], Duration: 30 day, Stop date: 07/08/18 8:00:00 CSTNotes: (Same as: Neurontin) Inactive 06/08/2018 [facility] Aspirin 325 mg, 1 tab, Route: PO, Drug form: TAB, Q12H, Dosing Weight 96.818, kg, For patients with risk of bleeding, Start date: 06/08/18 14:59:00 [employer], Stop date: 07/08/18 9:00:00 [employer] No Longer Active 06/08/2018 [facility] Acetaminophen 1,000 mg, 2 tab, Route: PO, Drug form: TAB, Q6H, Dosing Weight 96.818, kg, Start date: 06/08/18 14:00:00 [employer], Duration: 30 day, Stop date: 07/08/18 8:00:00 CSTNotes: Max acetaminophen 4000 mg/day (4 gm/day). (Same as: Tylenol Extra Strength) No Longer Active 06/08/2018 [facility] Cefazolin 2 gm, Route: IVPB, Q6H, Dosing Weight 96.818, kg, Start date: 06/08/18 14:00:00 [employer], Duration: 3 doses or times, Stop date: 06/09/18 2:00:00 [employer], ABX Indication: Surgical ProphylaxisNotes: (Same As: Anc ef, Kefzol) MEDICATION WASTE Product Size: 1000 mg Product Wasted: ___ mg No Longer Active 06/08/2018 [facility] Vitamin D2 50,000 intl units oral capsule 50,000 IntlUnit=1 cap, PO, qWeek, 0 Refill(s) Active 06/08/2018 [facility] Sodium Chloride 0.9% IV 25 mL, Route: IV, Start date: 06/08/18 13:13:00 [employer], Duration: 30 day, Stop date: 07/08/18 13:12:00 [employer], PRN Line Flush No Longer Active 06/08/2018 [facility] BD Normal Saline Flush 10 mL, Route: IV, Drug Form: INJ, PRN, PRN Line Flush, Start date: 06/08/18 13:13:00 [employer], Duration: 30 day, Stop date: 07/08/18 13:12:00 CSTNotes: (Same as: BD Posiflush) No Longer Active 06/08/2018 [facility] Acetaminophen 1,000 mg, Route: IVPB, Q6Hnow, Dosing Weight 96.818, kg, Start date: 06/08/18 11:00:00 [employer], Duration: 30 day, Stop date: 07/08/18 5:00:00 [employer] Inactive 06/08/2018 [facility] ketOROLAC (ANES) IV, ONCE Inactive 06/08/2018 [facility] ondansetron (ANES) Route: IV, Drug form: INJ, ONCE, Stop date: 06/08/18 10:47:00 [employer] Inactive 06/08/2018 [facility] morphine Sulfate (ANES) Route: IV, Drug form: INJ, ONCE, Stop date: 06/08/18 10:47:00 [employer] Inactive 06/08/2018 [facility] Oxycodone Hydrochloride 5 MG Oral Tablet 5 mg, 1 tab, Route: PO, Drug form: TAB, Q4H, Dosing Weight 96.818, kg, PRN Pain Score 4-6, Start date: 06/08/18 10:36:00 [employer], Duration: 30 day, Stop date: 07/08/18 10:35:00 CSTNotes: (Same as: Roxicodone) No Longer Active 06/08/2018 [facility] Morphine 6 mg, 3 mL, Route: PO, Drug form: SOLN, Q4H, Dosing Weight 96.818, kg, PRN Pain Score 7-10, Start date: 06/08/18 10:36:00 [employer], Duration: 30 day, Stop date: 07/08/18 10:35:00 CSTNotes: (Same as:MORPhine Sulfate) No Longer Active 06/08/2018 [facility] Diphenhydramine 12.5 mg, 5 mL, Route: PO, Drug form: LIQ, Q6H, Dosing Weight 96.818, kg, PRN Itching, Start date: 06/08/18 10:36:00 [employer], Duration: 30 day, Stop date: 07/08/18 10:35:00 CSTNotes: (Same as: Benadryl) No Longer Active 06/08/2018 [facility] tizanidine 2 mg, 0.5 tab, Route: PO, Drug form: TAB, Q6H, Dosing Weight 96.818, kg, PRN Muscle Spasms, Start date: 06/08/18 10:36:00 [employer], Duration: 30 day, Stop date: 07/08/18 10:35:00 CSTNotes: (Same As: Zanaflex) No Longer Active 06/08/2018 [facility] Ondansetron 4 mg, 2 mL, Route: IVP, Drug form: INJ, Q8H, Dosing Weight 96.818, kg, PRN Nausea & Vomiting, Start date: 06/08/18 10:36:00 [employer], Duration: 30 day, Stop date: 07/08/18 10:35:00 CSTNotes: (Same as: Zofran) MEDICATION WASTE Product Size: 4 mg Product Wasted: ___ mg No Longer Active 06/08/2018 [facility] Melatonin 3 mg, 1 tab, Route: PO, Drug form: TAB, Bedtime, Dosing Weight 96.818, kg, PRN Insomnia, Start date: 06/08/18 10:36:00 [employer], Duration: 30 day, Stop date: 07/08/18 10:35:00 CSTNotes: (Same as: Melatonin) No Longer Active 06/08/2018 [facility] Aluminum Hydroxide 40 MG/ML / Magnesium Hydroxide 40 MG/ML / Simethicone 4 MG/ML Oral Suspension 30 mL, Route: PO, Drug Form: SUSP, Dosing Weight 96.818, kg, Q4H, PRN Indigestion, Start date: 06/08/18 10:36:00 [employer], Duration: 30 day, Stop date: 07/08/18 10:35:00 CSTNotes: (aluminum hydroxide-magnesium hyd-simethicone [phone]/5ml 30 ml ud BETITO) No Longer Active 06/08/2018 [facility] 1/2 NS 1,000 mL 1,000 mL, Rate: 75 ml/hr, Infuse over: 13.3 hr, Route: IV, Dosing Weight 96.818 kg, Total Volume: 1,000, Start date: 06/08/18 10:33:00 [employer], Duration: 30 day, Stop date: 07/08/18 10:32:00 [employer], 2.11, m2 No Longer Active 06/08/2018 [facility] propofol (ANES) Route: IV, Drug form: INJ, ONCE, Stop date: 06/08/18 9:03:00 [employer] Inactive 06/08/2018 [facility] dexamethasone (ANES) Route: IV, Drug form: INJ, ONCE, Stop date: 06/08/18 8:58:00 [employer] Inactive 06/08/2018 [facility] midazolam (ANES) Route: IV, Drug form: SOLN, ONCE, Stop date: 06/08/18 8:58:00 [employer] Inactive 06/08/2018 [facility] metoclopramide (ANES) Route: IV, Drug form: INJ, ONCE, Stop date: 06/08/18 8:58:00 [employer] Inactive 06/08/2018 [facility] famotidine (ANES) Route: IV, Drug form: INJ, ONCE, Stop date: 06/08/18 8:58:00 [employer] Inactive 06/08/2018 [facility] fentaNYL (ANES) Route: IV, Drug form: INJ, ONCE, Stop date: 06/08/18 8:53:00 [employer] Inactive 06/08/2018 [facility] ceFAZolin (ANES) Route: IV, Drug form: INJ, ONCE, Stop date: 06/08/18 8:53:00 [employer] Inactive 06/08/2018 [facility] lidocaine (ANES) Route: IV, Drug form: INJ, ONCE, Stop date: 06/08/18 8:53:00 [employer] Inactive 06/08/2018 [facility] Ondansetron 4 mg, Route: IVP, ONCE, Dosing Weight 96.818, kg, PRN Nausea & Vomiting, Start date: 06/08/18 8:34:00 [employer] Inactive 06/08/2018 [facility] Hydralazine 10 mg, Route: IVP, Q20Min, Dosing Weight 96.818, kg, PRN Elevated BP, Start date: 06/08/18 8:34:00 [employer], Duration: 2 doses or times, Stop date: Limited # of times Inactive 06/08/2018 [facility] Metoprolol 1 mg, Route: IVP, Q5Min, Dosing Weight 96.818, kg, PRN Other -See Comment, Start date: 06/08/18 8:34:00 [employer], Duration: 5 doses or times, Stop date: Limited # of times Inactive 06/08/2018 [facility] Morphine 2 mg, Route: IVP, Q5Min, Dosing Weight 96.818, kg, PRN Pain Score 4-6, Start date: 06/08/18 8:34:00 [employer], Duration: 5 doses or times, Stop date: Limited # of times Inactive 06/08/2018 [facility] Hydromorphone 0.5 mg, Route: IVP, Q5Min, Dosing Weight 96.818, kg, PRN Pain Score 7-10, Start date: 06/08/18 8:34:00 [employer], Duration: 4 doses or times, Stop date: Limited # of times Inactive 06/08/2018 [facility] Naloxone 0.4 mg, Route: IVP, Q2MIN, Dosing Weight 96.818, kg, PRN Narcotic Reversal, Start date: 06/08/18 8:34:00 [employer], Duration: 8 doses or times, Stop date: Limited # of times Inactive 06/08/2018 [facility] Flumazenil 0.2 mg, Route: IVP, PRN, Dosing Weight 96.818, kg, PRN Benzodiazepine Reversal, Initial dose, Start date: 06/08/18 8:34:00 [employer], Duration: 30 day, Stop date: 07/08/18 8:33:00 [employer] Inactive 06/08/2018 [facility] Labetalol 10 mg, Route: IVP, Q5Min, Dosing Weight 96.818, kg, PRN Elevated BP, Start date: 06/08/18 8:34:00 [employer], Duration: 5 doses or times, Stop date: Limited # of times Inactive 06/08/2018 [facility] ropivacaine Route: NERVE BLOCK, Start date: 06/08/18 8:32:00 [employer] 400 mL, Drug Form: INJ, Dosing Weight 96.818, kg, Duration: 30 day, Stop date: 07/08/18 8:31:00 [employer], 6 ml/hrNotes: Final concentration: Ropivacaine 0.2% 400 ml No Longer Active 06/08/2018 [facility] tranexamic acid (ANES) 100 mg Route: IV, Drug form: INJ, Start date: 06/08/18 8:20:00 [employer], Stop date: 06/08/18 9:20:00 [employer] Inactive 06/08/2018 [facility] propofol (ANES) 10 mg Route: IV, Drug form: INJ, Start date: 06/08/18 8:12:00 [employer], Stop date: 06/08/18 9:12:00 [employer] Inactive 06/08/2018 [facility] Lactated Ringers Injection IV (ANES) 1000 mL Route: IV, Total Volume: 1,000, Start date: 06/08/18 8:00:00 [employer], Stop date: 06/08/18 9:00:00 [employer] Inactive 06/08/2018 [facility] vancomycin (ANES) 1.5 gm Route: IV, Drug form: INJ, Start date: 06/08/18 7:45:00 [employer], Stop date: 06/08/18 8:45:00 [employer] Inactive 06/08/2018 [facility] Cyklokapron + Sodium Chloride 0.9% IV 100 mL 1,000 mg, 10 mL, Route: IVPB, ONCALL, Start date: 06/07/18 23:00:00 [employer], Duration: 2 doses or timesNotes: (Same As: Cyklokapron) No Longer Active 06/08/2018 [facility] vancomycin 1.5 gm, 250 mL, Route: IVPB, Drug form: INJ, ONCALL, Start date: 06/07/18 23:00:00 [employer], Duration: 21 hr, Stop date: 06/08/18 19:59:00 [employer], ABX Indication: Surgical ProphylaxisNotes: TIME CRITICAL MEDICA TION Same as: Vancocin-NS (premixed) Infusion rate 2001 mg: infuse over 2.5 hours No Longer Active 06/08/2018 [facility] [place] ceFAZolin + sterile water 20 mL 2 gm, Route: IV, ONCALL, Start date: 06/07/18 23:00:00 [employer], Duration: 21 hr, Stop date: 06/08/18 19:59:00 [employer], ABX Indication: Surgical ProphylaxisNotes: (Same As: Clover Hauser) MEDICATION WASTE Product Size: 1000 mg Product Wasted: ___ mg No Longer Active 06/08/2018 [facility] [place] Celexa 100 mg, PO, Bedtime, 0 Refill(s) Active 05/12/2018 [facility] [place] preg[place]alin 150 MG Oral Capsule [Lyrica] 150 mg=1 cap, PO, TID, 0 Refill(s) Active 05/12/2018 [facility] [place] Acetaminophen 325 MG / Hydrocodone Bitartrate 10 MG Oral Tablet 1 tab, PO, Q6H, for break through pain only and not to be taking at tthe same of oxycontin, 0 Refill(s) Active 05/12/2018 [facility] [place] Metronidazole (Flagyl) 500 Mg Tablet, 500 Mg Oral Three Times A Day Active 04/15/2014 [facility] Amlodipine Besylate (Norvasc) 2.5 Mg Tablet, Mg Oral as needed for Daily Active 02/10/2014 [facility] Cyclobenzaprine Hcl (Flexeril) 5 Mg Tablet, 5 Mg Oral Qhs Active 02/10/2014 [facility] Diclofenac Sodium 75 Mg Tablet., 75 Mg Oral Bid Prn Active 02/10/2014 [facility] Duloxetine Hcl (Cymbalta) 30 Mg Capsule.dr, 30 Mg Oral Twice A Day Active 02/10/2014 [facility] Folic Acid 1 Mg Tablet, Active 02/10/2014 [facility] Gabapentin (Neurontin) 300 Mg Capsule, 300 Mg Oral Twice A Day Active 02/10/2014 [facility] Hydrocodone Bit/Acetaminophen ([place] 5-325 Tablet) 1 Each Tablet, 1 Mg Oral Every 6-8 Hours as needed for Pain Active 02/10/2014 [facility] Omeprazole 20 Mg Capsule., 1 Tab Oral Daily Active 03/26/2012 [facility] Ondansetron Hcl (Zofran) 4 Mg Tablet, 1 Tab Oral As Needed Active 03/26/2012 [facility] Smz/Tmp , 1 Mg Oral Active 03/26/2012 [facility] Sumatriptan Succinate 50 Mg Tablet, 1 Tab Oral Every Two Hours Active 03/26/2012 [facility] Amlodipine Besylate/Benazepril (Amlodipine-Benazepril 2.5-10) 1 Each Capsule Daily Active [facility] Allergies, Adverse Reactions, Alerts Substance Category Reaction Severity Reaction type Status Date Reported Comments Source ciprofloxacin HCl Mild Allergy to Substance Active 09/10/2015 [facility] Ciprofloxacin Mild Allergy to Substance Active 09/10/2015 [facility] ciprofloxacin Assertion Drug allergy Active [facility] [place] [employer] Assertion Drug allergy Active [facility] [place] traMADol Assertion Drug allergy Active [facility] [place] Immunizations No Data Provided for This Section Results Order Name Results Value Reference Range Date Interpretation Comments Source HEMATOLOGY Eosinophils # 0.1 0.0 - 0.5 06/10/2018 [facility] [place] HEMATOLOGY Basophils # 0.2 0.0 - 0.2 06/10/2018 [facility] [place] HEMATOLOGY Segs 58.5 45.0 - 75.0 06/10/2018 [facility] [place] HEMATOLOGY Lymphocytes 30.1 20.0 - 40.0 06/10/2018 [facility] [place] HEMATOLOGY Monocytes 9.7 2.0 - 12.0 06/10/2018 [facility] [place] HEMATOLOGY Eosinophils 0.7 0.0 - 4.0 06/10/2018 [facility] [place] HEMATOLOGY Lymphocytes # 5.2 1.0 - 5.5 06/10/2018 [facility] [place] HEMATOLOGY Monocytes # 1.7 0.0 - 0.8 06/10/2018 [facility] [place] HEMATOLOGY Basophils 1.0 0.0 - 1.0 06/10/2018 [facility] [place] HEMATOLOGY Neutrophils # 10.1 1.5 - 8.1 06/10/2018 [facility] [place] HEMATOLOGY MCV 88.1 80.0 - 98.0 06/10/2018 [facility] [place] HEMATOLOGY MCH 28.9 27.0 - 31.0 06/10/2018 [facility] [place] HEMATOLOGY Hct 40.1 36.0 - 48.0 06/10/2018 [facility] [place] HEMATOLOGY MCHC 32.8 32.0 - 36.0 06/10/2018 [facility] [place] HEMATOLOGY RDW 15.6 11.5 - 14.5 06/10/2018 [facility] [place] HEMATOLOGY MPV 9.1 7.4 - 10.4 06/10/2018 [facility] [place] HEMATOLOGY Platelet 299 133 - 450 06/10/2018 [facility] [place] HEMATOLOGY RBC 4.55 4.20 - 5.40 06/10/2018 [facility] [place] HEMATOLOGY WBC 17.3 3.7 - 10.4 06/10/2018 [facility] [place] HEMATOLOGY Hgb 13.1 12.0 - 16.0 06/10/2018 [facility] [place] HEMATOLOGY MCV 88.0 80.0 - 98.0 06/09/2018 [facility] [place] HEMATOLOGY MCH 28.7 27.0 - 31.0 06/09/2018 [facility] [place] HEMATOLOGY MCHC 32.6 32.0 - 36.0 06/09/2018 [facility] [place] HEMATOLOGY RDW 15.6 11.5 - 14.5 06/09/2018 [facility] [place] HEMATOLOGY Platelet 302 133 - 450 06/09/2018 [facility] [place] HEMATOLOGY MPV 9.3 7.4 - 10.4 06/09/2018 [facility] [place] HEMATOLOGY WBC 21.0 3.7 - 10.4 06/09/2018 [facility] [place] HEMATOLOGY RBC 4.19 4.20 - 5.40 06/09/2018 [facility] [place] HEMATOLOGY Hgb 12.0 12.0 - 16.0 06/09/2018 [facility] [place] HEMATOLOGY Hct 36.9 36.0 - 48.0 06/09/2018 [facility] [place] HEMATOLOGY Monocytes # 1.7 0.0 - 0.8 06/09/2018 [facility] [place] HEMATOLOGY Segs 70.9 45.0 - 75.0 06/09/2018 [facility] [place] HEMATOLOGY Eosinophils 0.1 0.0 - 4.0 06/09/2018 [facility] [place] HEMATOLOGY Lymphocytes 20.9 20.0 - 40.0 06/09/2018 [facility] [place] HEMATOLOGY Monocytes 7.9 2.0 - 12.0 06/09/2018 [facility] [place] HEMATOLOGY Lymphocytes # 4.4 1.0 - 5.5 06/09/2018 [facility] [place] HEMATOLOGY Basophils 0.2 0.0 - 1.0 06/09/2018 [facility] [place] HEMATOLOGY Neutrophils # 14.9 1.5 - 8.1 06/09/2018 [facility] [place] REFERENCE LAB RESULTS [facility] COMMENT 05/23/2018 Result Comment:
Test Ordered: [id number] Nicotine+Cotinine+Anabasine
Nicotine Note: ng/mL BN
None Detected
[...] the Food and Drug Administration.<b r/>Performed At: [facility]
[address], [place] [id number]
Reji Cooper MD Ph:[phone] [facility] [place] BACTERIAL - SEROLOGY MRSA by PCR Negative (05/11/18 1:48 PM) 05/11/2018 [facility] [place] CHEM PANEL B/C Ratio 12 6 - 25 05/11/2018 [facility] [place] CHEM PANEL AGAP 13.6 10.0 - 20.0 05/11/2018 [facility] [place] CHEM PANEL A/G Ratio 0.9 0.7 - 1.6 05/11/2018 [facility] [place] CHEM PANEL Globulin 3.9 2.7 - 4.2 05/11/2018 [facility] [place] PANEL eGFR 95 05/11/2018 Result Comment: The [...] should be multiplied by the estimated BMI. [facility] [place] CHEM PANEL Creatinine Lvl 0.76 0.50 - 1.40 05/11/2018 [facility] [place] CHEM PANEL AST 28 0 - 37 05/11/2018 [facility] [place] CHEM PANEL ALT 30 0 - 65 05/11/2018 [facility] [place] CHEM PANEL Potassium Lvl 3.6 3.5 - 5.1 05/11/2018 [facility] [place] CHEM PANEL Sodium Lvl 140 135 - 145 05/11/2018 [facility] [place] CHEM PANEL BUN 9 7 - 22 05/11/2018 [facility] [place] CHEM PANEL Glucose Lvl 128 70 - 99 05/11/2018 [facility] [place] CHEM PANEL Albumin Lvl 3.4 3.5 - 5.0 05/11/2018 [facility] [place] CHEM PANEL Calcium Lvl 8.8 8.5 - 10.5 05/11/2018 [facility] [place] CHEM PANEL CO2 25 24 - 32 05/11/2018 [facility] [place] CHEM PANEL Chloride Lvl 105 95 - 109 05/11/2018 [facility] [place] CHEM PANEL Total Protein 7.3 6.4 - 8.4 05/11/2018 [facility] [place] CHEM PANEL Alk Phos 82 39 - 136 05/11/2018 [facility] [place] CHEM PANEL Bili Total 0.6 0.2 - 1.3 05/11/2018 [facility] [place] HEMATOLOGY Segs 57.5 45.0 - 75.0 05/11/2018 [facility] [place] HEMATOLOGY Lymphocytes 36.1 20.0 - 40.0 05/11/2018 [facility] [place] HEMATOLOGY Lymphocytes # 5.5 1.0 - 5.5 05/11/2018 [facility] [place] HEMATOLOGY Neutrophils # 8.7 1.5 - 8.1 05/11/2018 [facility] [place] HEMATOLOGY Eosinophils 1.6 0.0 - 4.0 05/11/2018 [facility] [place] HEMATOLOGY Basophils 1.1 0.0 - 1.0 05/11/2018 [facility] [place] HEMATOLOGY Monocytes 3.7 2.0 - 12.0 05/11/2018 [facility] [place] HEMATOLOGY Basophils # 0.2 0.0 - 0.2 05/11/2018 [facility] [place] HEMATOLOGY Eosinophils # 0.2 0.0 - 0.5 05/11/2018 [facility] [place] HEMATOLOGY Monocytes # 0.6 0.0 - 0.8 05/11/2018 [facility] [place] HEMATOLOGY Hct 44.1 36.0 - 48.0 05/11/2018 [facility] [place] HEMATOLOGY RDW 15.6 11.5 - 14.5 05/11/2018 [facility] [place] HEMATOLOGY MCHC 33.8 32.0 - 36.0 05/11/2018 [facility] [place] HEMATOLOGY MCV 85.6 80.0 - 98.0 05/11/2018 [facility] [place] HEMATOLOGY MCH 28.9 27.0 - 31.0 05/11/2018 [facility] [place] HEMATOLOGY Platelet 327 133 - 450 05/11/2018 [facility] [place] HEMATOLOGY MPV 9.2 7.4 - 10.4 05/11/2018 [facility] [place] HEMATOLOGY WBC 15.1 3.7 - 10.4 05/11/2018 [facility] [place] HEMATOLOGY Hgb 14.9 12.0 - 16.0 05/11/2018 [facility] [place] HEMATOLOGY RBC 5.16 4.20 - 5.40 05/11/2018 [facility] [place] HEMATOLOGY PT 12.5 12.0 - 14.7 05/11/2018 [facility] [place] HEMATOLOGY PTT 29.5 22.9 - 35.8 05/11/2018 [facility] [place] HEMATOLOGY INR 0.93 0.85 - 1.17 05/11/2018 [facility] [place] URINE AND STOOL UA Mucus Few /LPF None Seen /LPF 05/11/2018 [facility] [place] URINE AND STOOL UA Bili Negative *NA* (05/11/18 1:48 PM) Negative 05/11/2018 [facility] [place] URINE AND STOOL UA Urobilinogen 2.0 0.1 - 1.0 05/11/2018 [facility] [place] URINE AND STOOL UA Nitrite Negative (05/11/18 1:48 PM) Negative 05/11/2018 [facility] [place] URINE AND STOOL UA Protein Negative (05/11/18 1:48 PM) Negative 05/11/2018 [facility] [place] URINE AND STOOL UA Glucose Negative *NA* (05/11/18 1:48 PM) Negative 05/11/2018 [facility] [place] URINE AND STOOL UA Blood Negative (05/11/18 1:48 PM) Negative 05/11/2018 [facility] [place] URINE AND STOOL UA Ketones Trace *ABN* (05/11/18 1:48 PM) Negative 05/11/2018 [facility] [place] URINE AND STOOL Micro? Performed (05/11/18 1:48 PM) 05/11/2018 [facility] [place] URINE AND STOOL UA Leuk Est Negative (05/11/18 1:48 PM) Negative 05/11/2018 [facility] [place] URINE AND STOOL UA WBC <1 0 - 5 05/11/2018 [facility] [place] URINE AND STOOL UA Sq Epi Occasional /LPF Few /LPF 05/11/2018 [facility] [place] URINE AND STOOL UA pH 5.0 5.0 - 8.0 05/11/2018 [facility] [place] URINE AND STOOL UA Spec Grav 1.018 <=1.030 05/11/2018 [facility] [place] URINE AND STOOL UA RBC 1 0 - 2 05/11/2018 [facility] [place] URINE AND STOOL UA Turbidity Clear (05/11/18 1:48 PM) Clear 05/11/2018 [facility] [place] URINE AND STOOL UA Color Yellow *NA* (05/11/18 1:48 PM) Yellow 05/11/2018 [facility] [place] Culture: Urine <10,000 CFU/mL Group B Streptococcus , No susceptibility performed since these organisms are predictably susceptible to penicillin. If patient is penicillin allergic or susceptibility testing for additional antibiotics is clinically warranted please call the laboratory. <10,000 CFU/mL Skin Cathie 05/11/2018 [facility] [place] Automated blood basophil count (count/volume) Automated blood basophil count (count/volume) 0.1 0.0 - 0.1 01/15/2018 [facility] Automated blood basophil count as percentage of total leukocytes Automated blood basophil count as percentage of total leukocytes 0.5 0.0 - 1.0 01/15/2018 [facility] Automated blood eosinophil count Automated blood eosinophil count 0.1 0.0 - 0.4 01/15/2018 [facility] Automated blood eosinophil count as percentage of total leukocytes Automated blood eosinophil count as percentage of total leukocytes 0.9 0.0 - 6.0 01/15/2018 [facility] Automated blood hematocrit (volume fraction) Automated blood hematocrit (volume fraction) 44.2 34.2 - 44.1 01/15/2018 [facility] Automated blood lymphocyte count as percentage ot total leukocytes Automated blood lymphocyte count as percentage ot total leukocytes 25.2 18.0 - 39.1 01/15/2018 [facility] Automated blood monocyte count as percentage of total leukocytes Automated blood monocyte count as percentage of total leukocytes 7.6 4.4 - 11.3 01/15/2018 [facility] Automated blood neutrophil count Automated blood neutrophil count 9.6 2.1 - 6.9 01/15/2018 [facility] Automated blood platelet count (count/volume) Automated blood platelet count (count/volume) 233 140 - 360 01/15/2018 [facility] Automated blood segmented neutrophil count as percentage of total leukocytes Automated blood segmented neutrophil count as percentage of total leukocytes 65.1 38.7 - 80.0 01/15/2018 [facility] Automated erythrocyte mean corpuscular hemoglobin (mass per erythrocyte) Automated erythrocyte mean corpuscular hemoglobin (mass per erythrocyte) 29.0 28 - 32 01/15/2018 [facility] Automated erythrocyte mean corpuscular hemoglobin concentration measurement (mass/volume) Automated erythrocyte mean corpuscular hemoglobin concentration measurement (mass/volume) 33.9 31 - 35 01/15/2018 [facility] Automated erythrocyte mean corpuscular volume Automated erythrocyte mean corpuscular volume 85.5 81 - 99 01/15/2018 [facility] Automated urine sediment leukocyte count by microscopy (number/high power field) Automated urine sediment leukocyte count by microscopy (number/high power field) <20 0 - 5 01/15/2018 [facility] Bacteria detection in urine sediment by light microscopy Bacteria detection in urine sediment by light microscopy FEW NONE 01/15/2018 [facility] Blood erythrocytes automated count (number/volume) Blood erythrocytes automated count (number/volume) 5.17 3.6 - 5.1 01/15/2018 [facility] Blood hemoglobin measurement (moles/volume) Blood hemoglobin measurement (moles/volume) 15.0 12.0 - 16.0 01/15/2018 [facility] Blood leukocytes automated count (number/volume) Blood leukocytes automated count (number/volume) 14.75 4.8 - 10.8 01/15/2018 [facility] Blood lymphocytes count (number/volume) Blood lymphocytes count (number/volume) 3.7 1.0 - 3.2 01/15/2018 [facility] Blood monocytes automated count (number/volume) Blood monocytes automated count (number/volume) 1.1 0.2 - 0.8 01/15/2018 [facility] Epithelial cells detection in urine sediment by light microscopy Epithelial cells detection in urine sediment by light microscopy MODERATE NONE 01/15/2018 [facility] Erythrocytes detection in urine sediment by light microscopy Erythrocytes detection in urine sediment by light microscopy <20 0 - 5 01/15/2018 [facility] Estimated glomerular filtration rate (GFR) determination Estimated glomerular filtration rate (GFR) determination >60 60 01/15/2018 [facility] Glucose measurement Glucose measurement 96 74 - 118 01/15/2018 [facility] Plasma globulin measurement (mass/volume) Plasma globulin measurement (mass/volume) 3.4 2.3 - 3.5 01/15/2018 [facility] Serum or plasma alanine aminotransferase measurement (enzymatic activity/volume) Serum or plasma alanine aminotransferase measurement (enzymatic activity/volume) 21 0 - 55 01/15/2018 [facility] Serum or plasma albumin measurement (mass/volume) Serum or plasma albumin measurement (mass/volume) 3.7 3.5 - 5.0 01/15/2018 [facility] Serum or plasma albumin/globulin mass ratio Serum or plasma albumin/globulin mass ratio 1.1 0.8 - 2.0 01/15/2018 [facility] Serum or plasma alkaline phosphatase measurement (enzymatic activity/volume) Serum or plasma alkaline phosphatase measurement (enzymatic activity/volume) 51 40 - 150 01/15/2018 [facility] Serum or plasma amylase measurement (enzymatic activity/volume) Serum or plasma amylase measurement (enzymatic activity/volume) 73 25 - 125 01/15/2018 [facility] Serum or plasma anion gap Serum or plasma anion gap 14.5 8 - 16 01/15/2018 [facility] Serum or plasma calcium measurement (mass/volume) Serum or plasma calcium measurement (mass/volume) 9.6 8.4 - 10.2 01/15/2018 [facility] Serum or plasma carbon dioxide, total measurement (moles/volume) Serum or plasma carbon dioxide, total measurement (moles/volume) 23 22 - 29 01/15/2018 [facility] Serum or plasma chloride measurement (moles/volume) Serum or plasma chloride measurement (moles/volume) 102 98 - 107 01/15/2018 [facility] Serum or plasma creatinine measurement (mass/volume) Serum or plasma creatinine measurement (mass/volume) 0.75 0.57 - 1.11 01/15/2018 [facility] Serum or plasma lipase measurement (enzymatic activity/volume) Serum or plasma lipase measurement (enzymatic activity/volume) 115 8 - 78 01/15/2018 [facility] Serum or plasma potassium measurement (moles/volume) Serum or plasma potassium measurement (moles/volume) 3.5 3.5 - 5.1 01/15/2018 [facility] Serum or plasma protein measurement (mass/volume) Serum or plasma protein measurement (mass/volume) 7.1 6.5 - 8.1 01/15/2018 [facility] Serum or plasma sodium measurement (moles/volume) Serum or plasma sodium measurement (moles/volume) 136 136 - 145 01/15/2018 [facility] Serum or plasma total bilirubin measurement (mass/volume) Serum or plasma total bilirubin measurement (mass/volume) 0.4 0.2 - 1.2 01/15/2018 [facility] Serum or plasma urea nitrogen measurement (mass/volume) Serum or plasma urea nitrogen measurement (mass/volume) 9 7 - 26 01/15/2018 [facility] Serum or plasma urea nitrogen/creatinine mass ratio Serum or plasma urea nitrogen/creatinine mass ratio 12 6 - 25 01/15/2018 [facility] Specific gravity of Urine by Test strip Specific gravity of Urine by Test strip 1.010 1.010 - 1.025 01/15/2018 [facility] Urine clarity Urine clarity CLOUDY CLEAR 01/15/2018 [facility] Urine color determination Urine color determination YELLOW YELLOW 01/15/2018 [facility] Urine erythrocytes detection Urine erythrocytes detection 2+ NEGATIVE 01/15/2018 [facility] Urine glucose detection Urine glucose detection NEGATIVE NEGATIVE 01/15/2018 [facility] Urine human chorionic gonadotropin (hCG) detection Urine human chorionic gonadotropin (hCG) detection NEGATIVE NEGATIVE 01/15/2018 [facility] Urine ketones detection by automated test strip Urine ketones detection by automated test strip 2+ NEGATIVE 01/15/2018 [facility] Urine leukocyte esterase detection by dipstick Urine leukocyte esterase detection by dipstick 1+ NEGATIVE 01/15/2018 [facility] Urine nitrite detection Urine nitrite detection NEGATIVE NEGATIVE 01/15/2018 [facility] Urine pH measurement by automated test strip Urine pH measurement by automated test strip 6 5 - 7 01/15/2018 [facility] Urine protein measurement by test strip (mass/volume) Urine protein measurement by test strip (mass/volume) NEGATIVE NEGATIVE 01/15/2018 [facility] Urine total bilirubin measurement (mass/volume) Urine total bilirubin measurement (mass/volume) NEGATIVE NEGATIVE 01/15/2018 [facility] Urine urobilinogen measurement by test strip (mass/volume) Urine urobilinogen measurement by test strip (mass/volume) 0.2 0.2 - 1 01/15/2018 [facility] Red Cell Distribution Width 14.6 11.7 - 14.4 01/15/2018 [facility] IM GRANULOCYTES % 0.7 0.0 - 1.0 01/15/2018 [facility] Absolute Immature Granulocyte (auto 0.10 0 - 0.1 01/15/2018 [facility] Aspartate Amino Transf (AST/SGOT) 23 5 - 34 01/15/2018 [facility] Influenza virus A and B antigen identification by immunofluorescence Influenza virus A and B antigen identification by immunofluorescence NEGATIVE NEGATIVE 09/18/2017 [facility] Pathology Reports No Data Provided [...] arthroplasty without evidence of complication. 06/09/2018 [facility] [place] Knee 1-2 Views unilateral DX CLINICAL HISTORY: [...] arthroplasty without evidence of complication. 06/08/2018 [facility] [place] Consultation Notes No Data Provided for This Section Discharge Summaries No Data Provided for This Section History and Physicals No Data Provided for This Section Vital Signs Vital Sign Value Date Comments Source Heart Rate 85 06/11/2018 [facility] [place] Temperature Oral (F) 98.3 F 06/11/2018 [facility] [place] Respitory Rate 16 06/11/2018 [facility] [place] Systolic (mm Hg) 142 06/11/2018 [facility] [place] Diastolic (mm Hg) 82 06/11/2018 [facility] [place] Systolic (mm Hg) 130 06/11/2018 [facility] [place] Diastolic (mm Hg) 81 06/11/2018 [facility] [place] Respitory Rate 18 06/11/2018 [facility] [place] Heart Rate 99 06/11/2018 [facility] [place] Temperature Oral (F) 98.7 F 06/11/2018 [facility] [place] Heart Rate 76 06/11/2018 [facility] [place] Systolic (mm Hg) 110 06/11/2018 [facility] [place] Diastolic (mm Hg) 77 06/11/2018 [facility] [place] Respitory Rate 16 06/11/2018 [facility] [place] Temperature Oral (F) 98.5 F 06/11/2018 [facility] [place] BMI Calculated 39.05 06/08/2018 [facility] [place] Weight 100 06/08/2018 [facility] [place] Height 160.02 cm 06/08/2018 [facility] [place] Weight 96.818 05/11/2018 [facility] [place] BMI Calculated 37.81 05/11/2018 [facility] [place] Height 160.02 cm 05/11/2018 [facility] [place] Encounters Location Location Details Encounter Type Encounter Number Reason For Visit Attending Provider ADM Date DC Date Status Source Departed Emergency Room [id number] FELI ALEXANDER MD 09/18/2017 09/18/2017 [facility] Departed Emergency Room [id number] FELI ALEXANDER MD 01/15/2018 01/15/2018 [facility] Outpatient Imaging [facility] Out[facility] Di[facility] Services [id number] [place] 04/26/2018 04/27/2018 [facility] Inpatient [id number] [place] 06/08/2018 06/12/2018 [facility] [place] [facility] [id number] [place] 07/10/2018 08/09/2018 [facility] [place] [facility] [place] [facility] [id number] [place] 08/21/2018 09/20/2018 [facility] Procedures Procedure Code Date Perfomer Comments Source Computed tomography of abdomen and pelvis with contrast [id number] 01/15/2018 [facility] X-ray of chest, two views [id number] 09/18/2017 [facility] Procedure<sup>1</sup> [id number] Rotator cuff ear [facility] [place] Tonsillectomy [id number] [facility] [place] Assessment and Plan Assessment and Plan Date Source Extracted from:Title: Orthopedic surgery Author: Yordy Mae MD Date: 06/10/18 Progress Note - Daily [facility] Completed: Jun, 19:42 by Yordy Mae MD RM: [id number], Jose GuadalupeJALEEL MARTINEZ 48y (: 1970) F Attending: [place] MD Service: Orthopedic Reason for Admission: [id number], [id number] RIGHT KNEE OSTEOARTHRITIS Working DRG: Code status: [...] home tomorrow on recommended regimen 06/12/2018 [facility] [place] Plan of Care Plan of Care Date Source Discharge Date 01/15/18 6:40pm Disposition HOME, SELF-CARE Condition at Discharge Stable Instructions/Education Provided Abdominal Pain - Adult Urinary Tract Infection - Women Forms Provided Work/School Excuse Prescriptions See Medication Section Additional Instructions/Education DRINK PLEANTY OF FLUIDS TAKE ALL MEDICATIONS PRESCRIBED, FOLLOW UP WITH YOUR FAMILY 01/15/2018 [facility] Social History Social History Date Source Social History TypeResponse Smoking Status Former smoker; Previous treatment: None; Exposure to Tobacco Smoke None; Cigarette Smoking Last 365 Days No; Reg Smoking Cessation Counseling No1 entered on: 06/08/18 1Patient said she just quit smoking 2 days ago, on Chantix. 06/08/2018 [facility] [place] Social History TypeResponse Smoking Status Former smoker; Previous treatment: None; Exposure to Tobacco Smoke None; Cigarette Smoking Last 365 Days No; Reg Smoking Cessation Counseling No1 entered on: 06/08/18 1Patient said she just quit smoking 2 days ago, on Chantix. 06/08/2018 [facility] Social History TypeResponse Smoking Status Former smoker; Previous treatment: None; Exposure to Tobacco Smoke None; Cigarette Smoking Last 365 Days No; Reg Smoking Cessation Counseling No1 entered on: 06/08/18 1Patient said she just quit smoking 2 days ago, on Chantix. 06/08/2018 [facility] [place] Social History Problem Response Recorded Date/Time Onset [...] Stop Date Current every day smoker 01/15/2018 [facility] Family History No Data Provided for This Section Advance Directives Order Name Results Value Date Source Advance Directives Advance Directives Directive Response Recorded Date/Time Does the patient have an advance directive? No 02/11/14 9:46pm If yes, is advance directive on file with [facility]? No 02/11/14 9:46pm If not on file with [facility] will patient provide a copy? Yes 09/10/15 6:37pm Do you have a Directive to Physician? No 01/15/18 1:37pm Do you have a Medical Power of [employer]? No 01/15/18 1:37pm Do you have an [...] rights and responsibilities? Yes 01/15/18 1:37pm 01/15/2018 [facility] Functional Status No Data Provided for This Section
[2019-03-02] MEDS ORDERED: ULTRAM50 MG PO (15:10)
[2019-03-02] MEDS ORDERED: NAPROSYN500 MG PO (15:10)
[2019-03-02] MEDS ORDERED: COLACE100 MG PO (15:10)
[2019-03-02] MEDS ORDERED: KETOROLAC TROMETHAMINE 60 MG/2 ML VIAL IM ONE (15:15)
[2019-03-02] MEDS ORDERED: KETOROLAC TROMETHAMINE 30 MG/ML VIAL ONE (15:16)
--- NOTE | 2019-03-02 15:44 | Diagnostic Imaging Report ---
Frontal and lateral views of the chest. HISTORY: Fall COMPARISON: Chest radiograph January 23, 2019 DISCUSSION: Lungs: The lungs are well inflated. No evidence of a consolidative pneumonia or pulmonary alveolar edema. Pleura: No pleural effusion or pneumothorax. Heart and mediastinum: The cardiomediastinal silhouette appear(s) unremarkable. Bones and soft tissues: Appear unremarkable. IMPRESSION: 1. No acute radiographic abnormality. 2. No significant interval change. Signed by: Dr. Shashank Rdz D.O., M.M.M. on 03/02/2019 3:41 PM
--- NOTE | 2019-03-02 15:46 | Diagnostic Imaging Report ---
RIGHT SHOULDER - 2 Image(s) HISTORY: Fall COMPARISON: None available. FINDINGS: Oblique projection of the scapular Y view partially limits the evaluation. Bones: No acute displaced fracture. Osseous anchor within the humeral head. Mild anterior subluxation of the humeral head. Joints: Minimal degenerative changes of the acromioclavicular and glenohumeral joints. Soft tissues: The soft tissues appear unremarkable. IMPRESSION: 1. Mild inferior subluxation of the humeral head, correlate for instability. 2. Status post presumed rotator cuff reconstruction. 3. Minimal acromioclavicular and glenohumeral osteoarthrosis. Signed by: Dr. Shashank Rdz D.O., M.M.M. on 03/02/2019 3:42 PM
--- NOTE | 2019-03-02 15:57 | Diagnostic Imaging Report ---
Lumbar Spine Radiographs: 3 views HISTORY: Fall, tailbone pain COMPARISON: None available. DISCUSSION: The osseous structures are partially obscured by stool and bowel gas. The coccyx is not totally included within the [id number] on the lateral. Five non-rib bearing lumbar vertebral bodies. A 4 mm anterolisthesis of L4 on L5. No displaced fracture or compression deformity is identified. Disc Spaces: The disc spaces are well maintained. Facets: Multilevel facet arthrosis, most only moderate at L4-5 and L5-S1. Other: Subtle dorsal subluxation in the region of the sacrococcygeal junction. Metallic surgical clips within the right mid abdomen. IMPRESSION: 1. Subtle age-indeterminate dorsal subluxation in the region of the sacrococcygeal junction, but this is a common site of anatomic variance. Correlate for acute focal point tenderness. 2. Degenerative changes of the lumbosacral spine, as detailed above. Signed by: Dr. Shashank Rdz D.O., M.M.M. on 03/02/2019 3:53 PM
--- NOTE | 2019-03-02 15:59 | Diagnostic Imaging Report ---
SACRUM AND COCCYX - 4 Image(s) HISTORY: Fall, back pain COMPARISON: Lumbar spine radiographs from the same date. FINDINGS: Bones: Some of the osseous structures are partially obscured by stool and overlying bowel gas. No acute displaced fracture. No aggressive osseous lesion. Subtle age-indeterminate dorsal subluxation in the region of the sacrococcygeal junction and subtle irregular linear lucency projecting at the more distal coccyx. Joints: Moderate degenerative changes of the pubic symphysis. Soft tissues: The soft tissues appear unremarkable. IMPRESSION: Subtle age-indeterminate dorsal subluxation in the region of the sacrococcygeal junction and possible nondisplaced fracture of the more distal coccyx, but this is a common site of anatomic variance. Correlate for acute focal point tenderness. Signed by: Dr. Shashank Rdz D.O., M.M.M. on 03/02/2019 3:55 PM
[2019-03-02] MEDS ORDERED: MORPHINE SULFATE INJ 4 MG/ML INJ 1ML IV ONE (16:00)
[2019-03-02] MEDS ORDERED: MORPHINE SULFATE INJ 4 MG/ML INJ 1ML ONE (16:03)
[2019-03-02] MEDS ORDERED: AUGMENTIN 875-1 EACH PO (16:12)
[2019-03-02 16:35] VITALS: BP 152/83
== END 2019-03-02 16:32 | disposition home or self-care (01) ==
LOC: FSED 14:51
DX: S20.211A Contusion of right front wall of thorax, initial encounter (principal); S43.421A Sprain of right rotator cuff capsule, initial encounter; M25.511 Pain in right shoulder; S30.0XXA Contusion of lower back and pelvis, initial encounter; W18.2XXA Fall in (into) shower or empty bathtub, initial encounter; Y93.E1 Activity, personal bathing and showering; Y92.002 Bathroom of unspecified non-institutional (private) residence as the place of occurrence of the external cause
CPT/HCPCS: 71046; 72100; 72220; 73030; 96372; 99283; J1885 ×2; J2270

== ENCOUNTER 2019-05-27 17:09 | Emergency (ER) | payer OTHER ==
[~2019-05-27] VITALS: Ht 160 cm; Wt 103.4 kg
[~2019-05-27 17:09] MED LIST changes: +AUGMENTIN 875-1 EACH PO; +COLACE100 MG PO; +NAPROSYN500 MG PO; +ULTRAM50 MG PO
--- NOTE | 2019-05-27 17:48 | NUR ---
SEEN IN TRIAGE BY [employer] C[employer] OPERATOR
[2019-05-27 18:24] LABS: BILIRUBIN,URINE NEGATIVE (NEGATIVE); CLARITY,URINE SL CLOUDY (CLEAR); COLOR,URINE YELLOW (YELLOW); KETONES,URINE TRACE (NEGATIVE); LEUKOCYTE ESTERASE ,URINE NEGATIVE (NEGATIVE); NITRITE,URINE POSITIVE (NEGATIVE); PROTEIN,URINE DIPSTICK NEGATIVE (NEGATIVE); URINE UROBILINOGEN 0.2 mg/dL (0.2 - 1)
[2019-05-27 19:11] LABS: BACTERIA,URINE MODERATE /HPF; EPITHELIAL CELLS,URINE MODERATE /LPF; WBC,URINE (MAN) 0-5 /HPF (0-5)
[2019-05-27 19:15] LABS: PREGNANCY TEST, URINE NEGATIVE (NEGATIVE)
--- NOTE | 2019-05-27 19:28 | Diagnostic Imaging Report ---
LEFT KNEE X-RAY - 3 VIEWS HISTORY: ^pain ^[id number] ^[id number] COMPARISON: Right knee x-ray 12/02/2013 FINDINGS: Bones: Few well-corticated fragments within the intercondylar spine with mild cortical irregularity of some of the fragments. Otherwise, no acute fractures. Osseous alignment is within normal limits. Joints: Mild tricompartmental degenerative changes of the left knee, worse in the medial compartment. No joint effusion. Soft tissues: The soft tissues appear unremarkable. IMPRESSION: Chronic degenerative change versus posttraumatic deformity of the intercondylar spine, can not exclude acute on chronic posttraumatic deformity. Recommend follow-up left knee x-ray in one week. Signed by: Dr. Ekaterina Paez M.D. on 05/27/2019 7:25 PM
[2019-05-27] MEDS ORDERED: HYDROCODONE/APAP 10MG-325MG TAB PO ONE (21:00)
[2019-05-27 21:49] VITALS: BP 114/76
== END 2019-05-27 21:50 | disposition home or self-care (01) ==
LOC: ER 17:09
DX: M25.562 Pain in left knee (principal); M17.32 Unilateral post-traumatic osteoarthritis, left knee; N30.91 Cystitis, unspecified with hematuria; R26.2 Difficulty in walking, not elsewhere classified
CPT/HCPCS: 81001; 81025; 93971; 99283

== ENCOUNTER 2020-10-31 17:27 | Emergency (ER) | payer BC, OTHER ==
[~2020-10-31] VITALS: Ht 160 cm; Wt 103.4 kg
== END 2020-10-31 18:32 | disposition home or self-care (01) ==
LOC: ER 17:42
DX: G89.18 Other acute postprocedural pain (principal); R03.0 Elevated blood-pressure reading, without diagnosis of hypertension; M79.7 Fibromyalgia; M54.9 Dorsalgia, unspecified; G89.29 Other chronic pain
CPT/HCPCS: 99282

== ENCOUNTER 2021-01-13 08:59 | Inpatient (IN) | payer BC ==
[~2021-01-13] VITALS: Ht 154.9 cm; Wt 90.7 kg
[2021-01-13] MEDS ORDERED: SODIUM CHLORIDE 0.9% 1000ML 1,000 ML IV STA ×2 (09:16→13:21)
[2021-01-13 09:44] LABS: BASOPHILS # (AUTO) 0.1 (0.0-0.1); BASOPHILS % 0.5 % (0.0-1.0); EOSINOPHILS # (AUTO) 0.1 (0.0-0.4); EOSINOPHILS % 0.3 % (0.0-6.0); HEMATOCRIT 42.9 % (34.2-44.1); HEMOGLOBIN 14.3 g/dL (12.0-16.0); LYMPHOCYTES # (AUTO) 3.5 (1.0-3.2); LYMPHOCYTES % 15.5 % (18.0-39.1); MEAN CORPUSCULAR HEMOGLOBIN 27.2 pg (28-32); MEAN CORPUSCULAR HGB CONC 33.3 g/dL (31-35); MEAN CORPUSCULAR VOLUME 81.6 fL (81-99); MONOCYTES # (AUTO) 1.3 (0.2-0.8); MONOCYTES % 5.7 % (4.4-11.3); NEUTROPHILS # (AUTO) 17.2 (2.1-6.9); NEUTROPHILS % 77.1 % (38.7-80.0); PLATELET COUNT 282 x10e3/uL (140-360); RED BLOOD COUNT 5.26 x10e6/uL (3.6-5.1); RED CELL DISTRIBUTION WIDTH 15.3 % (11.7-14.4)
[2021-01-13 10:10] LABS: ALANINE AMINOTRANSFERASE 17 IU/L (0-55); ALBUMIN 3.3 g/dL (3.5-5.0); ALBUMIN/GLOBULIN RATIO 0.8 (0.8-2.0); ALKALINE PHOSPHATASE 78 IU/L (40-150); ANION GAP 16.5 mmol/L (8-16); BLOOD UREA NITROGEN 7 mg/dL (7-26); BUN/CREATININE RATIO 8 (6-25); CARBON DIOXIDE 20 mmol/L (22-29); CHLORIDE 104 mmol/L (98-107); CREATININE, SERUM 0.83 mg/dL (0.57-1.11); EST GLOMERULAR FILTRATION RATE 73 ML/MIN (60-); GLUCOSE 125 mg/dL (74-118); POTASSIUM 3.5 mmol/L (3.5-5.1); SODIUM 137 mmol/L (136-145)
[2021-01-13 10:13] LABS: LIPASE < 4 U/L (8-78)
[2021-01-13 10:21] LABS: CLARITY,URINE CLOUDY (CLEAR); COLOR,URINE YELLOW (YELLOW)
[2021-01-13 10:22] LABS: KETONES,URINE TRACE (NEGATIVE); LEUKOCYTE ESTERASE ,URINE LARGE (NEGATIVE); NITRITE,URINE POSITIVE (NEGATIVE); PROTEIN,URINE DIPSTICK 2+ (NEGATIVE); URINE UROBILINOGEN 1 mg/dL (0.2 - 1)
[2021-01-13] MEDS ORDERED: SODIUM CHLORIDE 0.9% 50ML 50 ML ONE (10:43)
[2021-01-13] MEDS ORDERED: IOPAMIDOL 370 MG/ML 200 ML INFUS..BTL INJ ONE (10:44)
[2021-01-13 10:58] LABS: BACTERIA,URINE MANY /HPF; EPITHELIAL CELLS,URINE FEW /LPF; RBC,URINE 0-5 /HPF (0-5); WBC,URINE (MAN) >50 /HPF (0-5)
[2021-01-13] MEDS ORDERED: MORPHINE SULFATE INJ 4 MG/ML INJ 1ML IV STA (11:25)
[2021-01-13] MEDS ORDERED: ONDANSETRON HCL INJ 2MG/ML 2ML 2 MG/ML VIAL IV STA (11:25)
[2021-01-13] MEDS ORDERED: SODIUM CHLORIDE 0.9% 1000ML 1,000 ML IV SCH (11:30)
[2021-01-13] MEDS: SODIUM CHLORIDE 0.9% 1000ML 1,000 ML IV SCH ×2 (12:08→20:10)
[2021-01-13] MEDS: PIPERACILLIN/TAZOBACTAM 3.375 GM in SODIUM CHLORIDE 0.9% 50ML 50 ML IV SCH ×2 (12:09→18:00)
[2021-01-13] MEDS ORDERED: ACETAMINOPHEN 325 MG TAB PO STA (13:03)
[2021-01-13] MEDS ORDERED: HYDROMORPHONE 1MG/1ML INJ IV STA (13:21)
[2021-01-13] MEDS ORDERED: IBUPROFEN 400 MG TAB ONE (13:54)
[2021-01-13] MEDS ORDERED: IBUPROFEN 400 MG TAB PO ONE (14:00)
[2021-01-13 15:14] VITALS: BP 90/56
[2021-01-13 15:16] VITALS: BP 90/55
[2021-01-13 15:25] VITALS: BP 90/55
[2021-01-13] MEDS: MORPHINE SULFATE INJ 4 MG/ML INJ 1ML IV PRN (16:02)
[2021-01-13] MEDS: ONDANSETRON HCL INJ 2MG/ML 2ML 2 MG/ML VIAL IV PRN (16:02)
[2021-01-13 16:35] LABS: CREATINE KINASE MB 0.5 ng/mL (0-5.0)
[2021-01-13 20:00] VITALS: BP_SYST 84; BP_SYST 87; BP_DIAS 52
[2021-01-13 21:00] VITALS: BP 84/52
[2021-01-13] MEDS ORDERED: SODIUM CHLORIDE 0.9% 1000ML 1,000 ML IV ONE (22:00)
[2021-01-13] MEDS: ACETAMINOPHEN 325 MG TAB PO PRN (22:20)
[2021-01-13 23:52] VITALS: BP 102/76
[2021-01-14] VITALS (7 sets, daily range): BP systolic 92–119; BP diastolic 59–69
[2021-01-14 00:04] LABS: CREATINE KINASE MB 0.7 ng/mL (0-5.0)
[2021-01-14] MEDS: ONDANSETRON HCL INJ 2MG/ML 2ML 2 MG/ML VIAL IV PRN ×4 (00:09→17:35)
[2021-01-14] MEDS: PIPERACILLIN/TAZOBACTAM 3.375 GM in SODIUM CHLORIDE 0.9% 50ML 50 ML IV SCH ×3 (00:09→12:00)
[2021-01-14] MEDS: MORPHINE SULFATE INJ 4 MG/ML INJ 1ML IV PRN ×5 (00:09→22:04)
[2021-01-14 04:40] LABS: BASOPHILS # (AUTO) 0.1 (0.0-0.1); BASOPHILS % 0.6 % (0.0-1.0); EOSINOPHILS # (AUTO) 0.3 (0.0-0.4); EOSINOPHILS % 1.3 % (0.0-6.0); HEMATOCRIT 34.8 % (34.2-44.1); HEMOGLOBIN 11.1 g/dL (12.0-16.0); LYMPHOCYTES # (AUTO) 3.5 (1.0-3.2); LYMPHOCYTES % 17.6 % (18.0-39.1); MEAN CORPUSCULAR HEMOGLOBIN 27.5 pg (28-32); MEAN CORPUSCULAR HGB CONC 31.9 g/dL (31-35); MEAN CORPUSCULAR VOLUME 86.4 fL (81-99); MONOCYTES % 5.2 % (4.4-11.3); NEUTROPHILS # (AUTO) 14.9 (2.1-6.9); NEUTROPHILS % 74.5 % (38.7-80.0); PLATELET COUNT 197 x10e3/uL (140-360); RED BLOOD COUNT 4.03 x10e6/uL (3.6-5.1)
[2021-01-14 05:12] LABS: ALBUMIN 2.6 g/dL (3.5-5.0); ALBUMIN/GLOBULIN RATIO 0.7 (0.8-2.0); ANION GAP 12.5 mmol/L (8-16); CREATININE, SERUM 0.7 mg/dL (0.57-1.11); POTASSIUM 3.5 mmol/L (3.5-5.1)
[2021-01-14] MEDS: ACETAMINOPHEN 325 MG TAB PO PRN ×2 (05:26→12:51)
[2021-01-14] MEDS: SODIUM CHLORIDE 0.9% 1000ML 1,000 ML IV SCH ×3 (06:44→19:36)
[2021-01-14 06:46] LABS: CREATINE KINASE MB 0.8 ng/mL (0-5.0)
[2021-01-14] MEDS ORDERED: TRAMADOL HCL 50 MG TAB PO PRN (07:15)
[2021-01-14] MEDS: MEROPENEM 1 GM in SODIUM CHLORIDE 0.9% 100 ML IV SCH (17:23)
[2021-01-15] VITALS (7 sets, daily range): BP systolic 99–122; BP diastolic 62–73
[2021-01-15] MEDS: ACETAMINOPHEN 325 MG TAB PO PRN ×2 (00:18→23:05)
[2021-01-15] MEDS: MEROPENEM 1 GM in SODIUM CHLORIDE 0.9% 100 ML IV SCH ×2 (01:01→10:00)
[2021-01-15] MEDS: SODIUM CHLORIDE 0.9% 1000ML 1,000 ML IV SCH (01:11)
[2021-01-15] MEDS: MORPHINE SULFATE INJ 4 MG/ML INJ 1ML IV PRN ×5 (02:08→23:04)
[2021-01-15 06:17] LABS: BASOPHILS # (AUTO) 0.1 (0.0-0.1); BASOPHILS % 0.4 % (0.0-1.0); EOSINOPHILS # (AUTO) 0.4 (0.0-0.4); EOSINOPHILS % 2.7 % (0.0-6.0); HEMATOCRIT 34.3 % (34.2-44.1); HEMOGLOBIN 11.5 g/dL (12.0-16.0); LYMPHOCYTES # (AUTO) 3.8 (1.0-3.2); LYMPHOCYTES % 28.2 % (18.0-39.1); MEAN CORPUSCULAR HEMOGLOBIN 27.6 pg (28-32); MEAN CORPUSCULAR HGB CONC 33.5 g/dL (31-35); MONOCYTES # (AUTO) 1.2 (0.2-0.8); MONOCYTES % 8.6 % (4.4-11.3); NEUTROPHILS % 59.3 % (38.7-80.0); PLATELET COUNT 201 x10e3/uL (140-360); RED BLOOD COUNT 4.17 x10e6/uL (3.6-5.1); RED CELL DISTRIBUTION WIDTH 15.7 % (11.7-14.4)
[2021-01-15 06:25] LABS: MEAN CORPUSCULAR VOLUME 82.3 fL (81-99)
[2021-01-15 06:44] LABS: ALBUMIN 2.5 g/dL (3.5-5.0); ALBUMIN/GLOBULIN RATIO 0.7 (0.8-2.0); ANION GAP 11.1 mmol/L (8-16); CALCIUM 8.4 mg/dL (8.4-10.2); CREATININE, SERUM 0.71 mg/dL (0.57-1.11); POTASSIUM 3.1 mmol/L (3.5-5.1)
[2021-01-15] MEDS ORDERED: SERTRALINE HCL100 MG PO (08:51)
[2021-01-15] MEDS ORDERED: PERCOCET 10-321 EACH PO (08:51)
[2021-01-15] MEDS: Cefazolin 1 GM in SODIUM CHLORIDE 0.9% 50ML 50 ML IV SCH (18:01)
[2021-01-16] VITALS: BP 142/91
[2021-01-16] MEDS: Cefazolin 1 GM in SODIUM CHLORIDE 0.9% 50ML 50 ML IV SCH ×2 (01:54→09:01)
[2021-01-16 04:00] VITALS: BP 120/90
[2021-01-16] MEDS: MORPHINE SULFATE INJ 4 MG/ML INJ 1ML IV PRN ×2 (05:09→09:50)
[2021-01-16 09:26] VITALS: BP 112/76
[2021-01-16 10:02] VITALS: BP 112/76
[2021-01-16 10:38] LABS: BASOPHILS # (AUTO) 0.1 (0.0-0.1); BASOPHILS % 0.6 % (0.0-1.0); EOSINOPHILS # (AUTO) 0.4 (0.0-0.4); EOSINOPHILS % 3.9 % (0.0-6.0); HEMATOCRIT 36.5 % (34.2-44.1); LYMPHOCYTES # (AUTO) 3.4 (1.0-3.2); LYMPHOCYTES % 30.3 % (18.0-39.1); MEAN CORPUSCULAR HEMOGLOBIN 27.1 pg (28-32); MEAN CORPUSCULAR HGB CONC 32.9 g/dL (31-35); MEAN CORPUSCULAR VOLUME 82.6 fL (81-99); MONOCYTES # (AUTO) 1.1 (0.2-0.8); MONOCYTES % 9.7 % (4.4-11.3); NEUTROPHILS # (AUTO) 6.1 (2.1-6.9); NEUTROPHILS % 54.3 % (38.7-80.0); PLATELET COUNT 230 x10e3/uL (140-360); RED BLOOD COUNT 4.42 x10e6/uL (3.6-5.1); RED CELL DISTRIBUTION WIDTH 16.2 % (11.7-14.4)
[2021-01-16] MEDS ORDERED: POTASSIUM CHLORIDE 20 MEQ TAB CR PO ONE (11:45)
[2021-01-16 13:07] VITALS: BP 110/73
== END 2021-01-16 13:30 | disposition home or self-care (01) | DRG 872 ==
LOC: ER 09:13 → ERHOLD 11:56 → MED/SURG2 14:52
PROVIDERS: ADMIT Internal Medicine; ATTEND Internal Medicine
DX: A41.9 Sepsis, unspecified organism (principal); N39.0 Urinary tract infection, site not specified; Z16.24 Resistance to multiple antibiotics; Z68.37 Body mass index [BMI] 37.0-37.9, adult; B96.20 Unspecified Escherichia coli [E. coli] as the cause of diseases classified elsewhere; E66.01 Morbid (severe) obesity due to excess calories; Z20.822 Contact with and (suspected) exposure to COVID-19; Z85.6 Personal history of leukemia; D64.9 Anemia, unspecified
CPT/HCPCS: 36415; 74177; 80053; 81001; 81025; 82550; 82553; 83605; 83690; 83735; 84484; 85025; 87040; 87071; 87086; 87186; 87205; 99284; J0690; J1170; J2185; J2270; J2405; J2543; J7030; J7050; Q9967; U0002

== ENCOUNTER 2021-03-30 18:20 | Emergency (ER) | payer BC ==
[~2021-03-30] VITALS: Ht 160 cm; Wt 99.8 kg
[~2021-03-30 18:20] MED LIST changes: +PERCOCET 10-321 EACH PO; +SERTRALINE HCL100 MG PO
[2021-03-30] MEDS ORDERED: SODIUM CHLORIDE 0.9% 1000ML 1,000 ML IV STA (18:44)
[2021-03-30] MEDS ORDERED: METOCLOPRAMIDE HCL 10 MG/2ML VIAL IV NR (19:00)
[2021-03-30] MEDS ORDERED: SODIUM CHLORIDE 0.9% 1000ML 1,000 ML ONE (19:36)
[2021-03-30 19:37] LABS: BASOPHILS # (AUTO) 0.1 (0.0-0.1); BASOPHILS % 0.8 % (0.0-1.0); EOSINOPHILS # (AUTO) 0.4 (0.0-0.4); EOSINOPHILS % 2.7 % (0.0-6.0); HEMATOCRIT 43.5 % (34.2-44.1); HEMOGLOBIN 13.8 g/dL (12.0-16.0); LYMPHOCYTES # (AUTO) 6.9 (1.0-3.2); LYMPHOCYTES % 44.8 % (18.0-39.1); MEAN CORPUSCULAR HGB CONC 31.7 g/dL (31-35); MEAN CORPUSCULAR VOLUME 88.2 fL (81-99); MONOCYTES # (AUTO) 0.8 (0.2-0.8); MONOCYTES % 5.1 % (4.4-11.3); NEUTROPHILS % 45.6 % (38.7-80.0); PLATELET COUNT 351 x10e3/uL (140-360); RED BLOOD COUNT 4.93 x10e6/uL (3.6-5.1); RED CELL DISTRIBUTION WIDTH 16.6 % (11.7-14.4)
[2021-03-30 19:48] LABS: INR 0.91; PROTHROMBIN TIME 12.4 seconds (11.9-14.5)
[2021-03-30 19:49] LABS: PARTIAL THROMBOPLASTIN TIME 30.5 seconds (23.8-35.5)
[2021-03-30 19:57] LABS: ALBUMIN 3.7 g/dL (3.5-5.0); ALBUMIN/GLOBULIN RATIO 0.9 (0.8-2.0); ANION GAP 13.9 mmol/L (8-16); CALCIUM 9.3 mg/dL (8.4-10.2); CREATININE, SERUM 0.85 mg/dL (0.57-1.11); POTASSIUM 3.9 mmol/L (3.5-5.1)
[2021-03-30] MEDS ORDERED: KETOROLAC TROMETHAMINE 30 MG/ML VIAL IV STA (20:26)
[2021-03-30 20:27] LABS: CLARITY,URINE SL CLOUDY (CLEAR); COLOR,URINE YELLOW (YELLOW); KETONES,URINE NEGATIVE (NEGATIVE); LEUKOCYTE ESTERASE ,URINE NEGATIVE (NEGATIVE); NITRITE,URINE NEGATIVE (NEGATIVE); PROTEIN,URINE DIPSTICK NEGATIVE (NEGATIVE); URINE UROBILINOGEN 1 mg/dL (0.2 - 1)
[2021-03-30] MEDS ORDERED: ACETAMIN/BUTALBITAL/CAFFEINE TAB PO ONE (20:30)
[2021-03-30] MEDS ORDERED: KETOROLAC TROMETHAMINE 30 MG/ML VIAL ONE (20:39)
[2021-03-30] MEDS ORDERED: ACETAMIN/BUTALBITAL/CAFFEINE TAB ONE (20:39)
[2021-03-30 20:40] LABS: BACTERIA,URINE FEW /HPF; EPITHELIAL CELLS,URINE FEW /LPF; RBC,URINE 0-5 /HPF (0-5)
[2021-03-30 21:31] VITALS: BP 134/70
== END 2021-03-30 21:35 | disposition home or self-care (01) ==
LOC: ER 19:15
DX: G43.909 Migraine, unspecified, not intractable, without status migrainosus (principal); M54.9 Dorsalgia, unspecified; G89.29 Other chronic pain; Z20.822 Contact with and (suspected) exposure to COVID-19; Z85.6 Personal history of leukemia
CPT/HCPCS: 36415; 70450; 80053; 81001; 81025; 82948; 85025; 85610; 85730; 99284; J1885; J2765; J7030; U0002

== ENCOUNTER 2021-04-05 15:22 | Emergency (ER) | payer BC ==
[~2021-04-05] VITALS: Ht 160 cm; Wt 99.8 kg
[2021-04-05] MEDS ORDERED: CEFEPIME 2 GM in SODIUM CHLORIDE 0.9% 100 ML IV ONE (16:15)
[2021-04-05] MEDS ORDERED: SODIUM CHLORIDE 0.9% 1000ML 1,000 ML IV ONE (16:15)
[2021-04-05] MEDS ORDERED: ONDANSETRON HCL INJ 2MG/ML 2ML 2 MG/ML VIAL IV STA (16:50)
[2021-04-05 16:51] LABS: BASOPHILS # (AUTO) 0.1 (0.0-0.1); BASOPHILS % 0.5 % (0.0-1.0); EOSINOPHILS # (AUTO) 0.1 (0.0-0.4); EOSINOPHILS % 0.3 % (0.0-6.0); HEMATOCRIT 44.3 % (34.2-44.1); HEMOGLOBIN 14.5 g/dL (12.0-16.0); LYMPHOCYTES # (AUTO) 3.8 (1.0-3.2); LYMPHOCYTES % 20.4 % (18.0-39.1); MEAN CORPUSCULAR HEMOGLOBIN 28.3 pg (28-32); MEAN CORPUSCULAR HGB CONC 32.7 g/dL (31-35); MEAN CORPUSCULAR VOLUME 86.5 fL (81-99); MONOCYTES # (AUTO) 1.3 (0.2-0.8); MONOCYTES % 7.2 % (4.4-11.3); NEUTROPHILS # (AUTO) 13.2 (2.1-6.9); PLATELET COUNT 295 x10e3/uL (140-360); RED BLOOD COUNT 5.12 x10e6/uL (3.6-5.1); RED CELL DISTRIBUTION WIDTH 16.3 % (11.7-14.4)
[2021-04-05 16:55] LABS: INR 1.01; PROTHROMBIN TIME 13.5 seconds (11.9-14.5)
[2021-04-05 16:56] LABS: PARTIAL THROMBOPLASTIN TIME 32.5 seconds (23.8-35.5)
[2021-04-05] MEDS ORDERED: ONDANSETRON HCL INJ 2MG/ML 2ML 2 MG/ML VIAL ONE (17:01)
[2021-04-05 17:03] LABS: ALBUMIN 3.8 g/dL (3.5-5.0); ALBUMIN/GLOBULIN RATIO 0.8 (0.8-2.0); ANION GAP 14.4 mmol/L (8-16); CALCIUM 9.3 mg/dL (8.4-10.2); CREATININE, SERUM 0.83 mg/dL (0.57-1.11); POTASSIUM 3.4 mmol/L (3.5-5.1)
[2021-04-05 17:09] LABS: CREATINE KINASE MB 0.5 ng/mL (0-5.0); LIPASE 6 U/L (8-78); MAGNESIUM 1.8 MG/DL (1.3-2.1)
[2021-04-05 17:16] LABS: BACTERIA,URINE MODERATE /HPF; CLARITY,URINE SL CLOUDY (CLEAR); COLOR,URINE YELLOW (YELLOW); KETONES,URINE NEGATIVE (NEGATIVE); LEUKOCYTE ESTERASE ,URINE MODERATE (NEGATIVE); NITRITE,URINE POSITIVE (NEGATIVE); PROTEIN,URINE DIPSTICK 2+ (NEGATIVE); URINE UROBILINOGEN 1 mg/dL (0.2 - 1)
[2021-04-05] MEDS ORDERED: IOPAMIDOL 370 MG/ML 200 ML INFUS..BTL INJ ONE (17:27)
[2021-04-05] MEDS ORDERED: SODIUM CHLORIDE 0.9% 50ML 50 ML ONE (17:27)
[2021-04-05] MEDS ORDERED: FENTANYL CITRATE/PF 100MCG/2 ML INJ IV PRN (17:30)
[2021-04-05] MEDS ORDERED: CEPHALEXIN500 MG PO (19:00)
[2021-04-05] MEDS ORDERED: AZO URINARY P99.5 MG PO (19:01)
[2021-04-05] MEDS ORDERED: CEFDINIR300 MG PO (19:05)
== END 2021-04-05 19:53 | disposition home or self-care (01) ==
LOC: ER 15:58
DX: R50.9 Fever, unspecified (principal); N20.1 Calculus of ureter; N39.0 Urinary tract infection, site not specified; R10.31 Right lower quadrant pain; K76.0 Fatty (change of) liver, not elsewhere classified; Z20.822 Contact with and (suspected) exposure to COVID-19; Z85.6 Personal history of leukemia
CPT/HCPCS: 36415; 71045; 74177; 80053; 81001; 82550; 82553; 83605; 83690; 83735; 84484; 84702; 85025; 85610; 85730; 87040; 87086; 87186; 93005; 99284; J0692; J2405; J3010; J7030; J7050; Q9967; U0002

== ENCOUNTER 2022-04-06 13:58 | Emergency (ER) | payer BC, OTHER ==
[~2022-04-06] VITALS: Ht 160 cm; Wt 99.8 kg
[~2022-04-06 13:58] MED LIST changes: +AZO URINARY P99.5 MG PO; +CEFDINIR300 MG PO; +CEPHALEXIN500 MG PO; +SODIUM CHLORIDE FLUSH 10 ML SYR IV PRN
[2022-04-06] MEDS ORDERED: ONDANSETRON HCL INJ 2MG/ML 2ML 2 MG/ML VIAL IV STA (14:23)
[2022-04-06] MEDS ORDERED: SODIUM CHLORIDE 0.9% 1000ML 1,000 ML IV ONE (14:30)
[2022-04-06] MEDS ORDERED: Morphine 4mg INJECTION 4 MG/ML INJ IV ONE (14:30)
[2022-04-06 14:41] LABS: BASOPHILS # (AUTO) 0.1 (0.0-0.1); BASOPHILS % 0.6 % (0.0-1.0); EOSINOPHILS # (AUTO) 0.3 (0.0-0.4); EOSINOPHILS % 2.4 % (0.0-6.0); HEMATOCRIT 44.5 % (34.2-44.1); LYMPHOCYTES # (AUTO) 1.7 (1.0-3.2); LYMPHOCYTES % 13.9 % (18.0-39.1); MEAN CORPUSCULAR HEMOGLOBIN 28.5 pg (28-32); MEAN CORPUSCULAR HGB CONC 33.7 g/dL (31-35); MEAN CORPUSCULAR VOLUME 84.4 fL (81-99); MONOCYTES # (AUTO) 0.9 (0.2-0.8); MONOCYTES % 6.8 % (4.4-11.3); NEUTROPHILS # (AUTO) 9.4 (2.1-6.9); NEUTROPHILS % 75.7 % (38.7-80.0); PLATELET COUNT 348 x10e3/uL (140-360); RED BLOOD COUNT 5.27 x10e6/uL (3.6-5.1); RED CELL DISTRIBUTION WIDTH 15.5 % (11.7-14.4)
[2022-04-06 14:48] LABS: CLARITY,URINE SL CLOUDY (CLEAR); COLOR,URINE YELLOW (YELLOW); INR 0.85; KETONES,URINE NEGATIVE (NEGATIVE); LEUKOCYTE ESTERASE ,URINE TRACE (NEGATIVE); NITRITE,URINE NEGATIVE (NEGATIVE); PROTEIN,URINE DIPSTICK 1+ (NEGATIVE); PROTHROMBIN TIME 12.4 seconds (11.9-14.5); URINE UROBILINOGEN 0.2 mg/dL (0.2 - 1)
[2022-04-06 14:49] LABS: PARTIAL THROMBOPLASTIN TIME 26.1 seconds (23.8-35.5)
[2022-04-06 14:50] LABS: AMPHETAMINES SCREEN,URINE NEGATIVE (NEGATIVE); BENZODIAZEPINES SCREEN,URINE POSITIVE (NEGATIVE); PHENCYCLIDINE SCREEN,URINE NEGATIVE (NEGATIVE)
[2022-04-06 14:58] LABS: ALANINE AMINOTRANSFERASE 12 IU/L (0-55); ALBUMIN 4.1 g/dL (3.5-5.0); ALBUMIN/GLOBULIN RATIO 1.1 (0.8-2.0); ALKALINE PHOSPHATASE 67 IU/L (40-150); ANION GAP 15.9 mmol/L (8-16); BLOOD UREA NITROGEN 13 mg/dL (7-26); BUN/CREATININE RATIO 12 (6-25); CARBON DIOXIDE 21 mmol/L (22-29); CHLORIDE 107 mmol/L (98-107); CREATININE, SERUM 1.06 mg/dL (0.57-1.11); GLUCOSE 98 mg/dL (74-118); LIPASE 225 U/L (8-78); POTASSIUM 3.9 mmol/L (3.5-5.1); SODIUM 140 mmol/L (136-145)
[2022-04-06 15:07] LABS: BACTERIA,URINE MODERATE /HPF; EPITHELIAL CELLS,URINE MODERATE /LPF; RBC,URINE 0-5 /HPF (0-5); WBC,URINE (MAN) 0-5 /HPF (0-5)
[2022-04-06] MEDS ORDERED: IOPAMIDOL 370 MG/ML 100 ML INFUS..BTL INJ ONE (15:16)
[2022-04-06] MEDS ORDERED: REGLAN10 MG PO (16:19)
[2022-04-06] MEDS ORDERED: CEFDINIR300 MG PO (16:25)
[2022-04-06] MEDS ORDERED: BACTRIM DS TAB1 EACH PO (16:25)
[2022-04-06 16:56] VITALS: BP 126/76
== END 2022-04-06 16:50 | disposition home or self-care (01) ==
LOC: ER 14:08
DX: R10.33 Periumbilical pain (principal); R11.2 Nausea with vomiting, unspecified; R19.7 Diarrhea, unspecified
CPT/HCPCS: 36415; 71045; 74177; 80053; 80307; 81001; 83690; 84484; 85025; 85610; 85730; 93005; 99284; J2270; J2405; J7030; Q9967

== ENCOUNTER 2022-06-07 15:58 | Emergency (ER) | payer OTHER ==
[~2022-06-07] VITALS: Ht 160 cm; Wt 99.8 kg
[~2022-06-07 15:58] MED LIST changes: +BACTRIM DS TAB1 EACH PO; +REGLAN10 MG PO; -SODIUM CHLORIDE FLUSH 10 ML SYR IV PRN
[2022-06-07] MEDS ORDERED: SODIUM CHLORIDE 0.9% 1000ML 1,000 ML IV STA (16:36)
[2022-06-07] MEDS ORDERED: KETOROLAC TROMETHAMINE 30 MG/ML VIAL IV STA (16:36)
[2022-06-07] MEDS ORDERED: DIPHENHYDRAMINE HCL INJ 50 MG/ML VIAL IV ONE (16:45)
[2022-06-07] MEDS ORDERED: METOCLOPRAMIDE HCL 10 MG/2ML VIAL IV ONE (16:45)
[2022-06-07] MEDS ORDERED: FIORICET 50-301 EACH PO (18:38)
[2022-06-07] MEDS ORDERED: SUMATRIPTAN SUCCINATE 6 MG/0.5 ML VIAL SC ONE (18:45)
[2022-06-07 20:24] VITALS: BP 111/86
== END 2022-06-07 19:38 | disposition home or self-care (01) ==
LOC: ER 16:23
DX: G43.909 Migraine, unspecified, not intractable, without status migrainosus (principal); Z88.1 Allergy status to other antibiotic agents; Z91.013 Allergy to seafood
CPT/HCPCS: 70450; 99283; J1200; J1885; J2765; J3030; J7030

== ENCOUNTER 2022-12-20 15:13 | Emergency (ER) | payer OTHER ==
[~2022-12-20] VITALS: Ht 160 cm; Wt 99.8 kg
[~2022-12-20 15:13] MED LIST changes: +FIORICET 50-301 EACH PO
[2022-12-20 15:50] VITALS: O2SAT 100
[2022-12-20] MEDS ORDERED: HYDROCODONE/APAP 10MG-325MG TAB PO ONE (16:15)
[2022-12-20] MEDS ORDERED: NAPROSYN500 MG PO (16:44)
[2022-12-20] MEDS ORDERED: METHOCARBAMOL500 MG MT (16:45)
== END 2022-12-20 16:55 | disposition home or self-care (01) ==
LOC: ER 15:25
DX: S00.83XA Contusion of other part of head, initial encounter (principal); S93.491A Sprain of other ligament of right ankle, initial encounter; W01.0XXA Fall on same level from slipping, tripping and stumbling without subsequent striking against object, initial encounter; Y93.01 Activity, walking, marching and hiking; Y92.89 Other specified places as the place of occurrence of the external cause; M54.9 Dorsalgia, unspecified; G89.29 Other chronic pain
CPT/HCPCS: 70450; 99283

== ENCOUNTER 2023-07-16 16:18 | Emergency (ER) | payer BC, OTHER ==
[~2023-07-16] VITALS: Ht 160 cm; Wt 90.7 kg
[~2023-07-16 16:18] MED LIST changes: +METHOCARBAMOL500 MG MT
[2023-07-16] MEDS ORDERED: FAMOTIDINE 20 MG/2 ML VIAL IV STA (17:16)
[2023-07-16] MEDS ORDERED: METHYLPREDNISOLONE SOD SUCC 125 MG/2ML VIAL IV ONE (17:30)
[2023-07-16] MEDS ORDERED: DIPHENHYDRAMINE HCL INJ 50 MG/ML VIAL IV ONE (17:30)
[2023-07-16] MEDS ORDERED: SODIUM CHLORIDE 0.9% 1000ML 1,000 ML IV ONE (17:30)
[2023-07-16] MEDS ORDERED: EPINEPHRIN0.15 MG/01 IM (18:52)
[2023-07-16] MEDS ORDERED: PREDNISONE20 MG PO (18:52)
[2023-07-16] MEDS ORDERED: PEPCID20 MG PO (18:52)
[2023-07-16 19:01] VITALS: BP 129/84; PULSE 71; RESP 18; TEMP 98.3; O2SAT 99
== END 2023-07-16 19:02 | disposition home or self-care (01) ==
LOC: ER 17:10
DX: L50.9 Urticaria, unspecified (principal); M54.9 Dorsalgia, unspecified; G89.29 Other chronic pain
CPT/HCPCS: 99284; J1200; J2930; J7030

== ENCOUNTER → 2024-03-30 | Emergency (ER) | payer BC ==
[~2024-03-30] MED LIST changes: +AZITHROMYCIN250 MG PO; +EPINEPHRIN0.15 MG/01 IM; +PEPCID20 MG PO; +VENTOLIN HFA18 GM INH
== END | disposition left against medical advice (07) ==
LOC: ER 19:10
DX: M54.50 Low back pain, unspecified (principal)

== ENCOUNTER 2024-07-16 10:39 | Emergency (ER) | payer BC, OTHER ==
[~2024-07-16] VITALS: Ht 160 cm; Wt 89.8 kg
[2024-07-16 11:26] VITALS: PULSE 92; RESP 18; TEMP 98
[2024-07-16] MEDS ORDERED: METHOCARBAMOL750 MG PO (15:29)
[2024-07-16 15:37] VITALS: BP 132/66; PULSE 66; RESP 18; TEMP 98.1; O2SAT 100
== END 2024-07-16 15:37 | disposition home or self-care (01) ==
LOC: ER 14:18
DX: R25.2 Cramp and spasm (principal); I10 Essential (primary) hypertension; E78.5 Hyperlipidemia, unspecified; D46.9 Myelodysplastic syndrome, unspecified; M79.662 Pain in left lower leg; M54.9 Dorsalgia, unspecified; G89.29 Other chronic pain; Z96.651 Presence of right artificial knee joint
CPT/HCPCS: 93971; 99283

== ENCOUNTER 2024-08-26 10:48 | Emergency (ER) | payer OTHER ==
[~2024-08-26] VITALS: Ht 160 cm; Wt 87.1 kg
[~2024-08-26 10:48] MED LIST changes: +METHOCARBAMOL750 MG PO
[2024-08-26 12:04] LABS: BASOPHILS # (AUTO) 0.1 (0.0-0.1); BASOPHILS % 0.7 % (0.0-1.0); EOSINOPHILS # (AUTO) 0.1 (0.0-0.4); EOSINOPHILS % 0.9 % (0.0-6.0); HEMATOCRIT 40.2 % (34.2-44.1); HEMOGLOBIN 13.6 g/dL (12.0-16.0); LYMPHOCYTES # (AUTO) 4.7 (1.0-3.2); MEAN CORPUSCULAR HEMOGLOBIN 29.8 pg (28-32); MEAN CORPUSCULAR HGB CONC 33.8 g/dL (31-35); MEAN CORPUSCULAR VOLUME 88.2 fL (81-99); MONOCYTES # (AUTO) 0.6 (0.2-0.8); MONOCYTES % 5.1 % (4.4-11.3); NEUTROPHILS # (AUTO) 6.2 (2.1-6.9); PLATELET COUNT 391 x10e3/uL (140-360); RED BLOOD COUNT 4.56 x10e6/uL (3.6-5.1); RED CELL DISTRIBUTION WIDTH 15.9 % (11.7-14.4); WHITE BLOOD COUNT 11.67 x10e3/uL (4.8-10.8)
[2024-08-26 12:16] LABS: BILIRUBIN,URINE NEGATIVE (NEGATIVE); CLARITY,URINE CLEAR (CLEAR); COLOR,URINE YELLOW (YELLOW); GLUCOSE, URINE NEGATIVE (NEGATIVE); KETONES,URINE NEGATIVE (NEGATIVE); LEUKOCYTE ESTERASE ,URINE NEGATIVE (NEGATIVE); NITRITE,URINE NEGATIVE (NEGATIVE); PH,URINE 6 (5 - 7); PROTEIN,URINE DIPSTICK NEGATIVE (NEGATIVE); URINE UROBILINOGEN 0.2 mg/dL (0.2 - 1)
[2024-08-26 12:21] LABS: INR 0.85; PROTHROMBIN TIME 12.1 seconds (11.9-14.5)
[2024-08-26 12:27] LABS: ALBUMIN/GLOBULIN RATIO 1.3 (0.8-2.0); ANION GAP 15.7 mmol/L (8-16); BILIRUBIN,TOTAL 0.5 mg/dL (0.2-1.2); CALCIUM 9.4 mg/dL (8.4-10.2); CREATININE, SERUM 0.81 mg/dL (0.57-1.11); POTASSIUM 3.7 mmol/L (3.5-5.1)
[2024-08-26 12:31] LABS: BACTERIA,URINE RARE /HPF; EPITHELIAL CELLS,URINE RARE /LPF; RBC,URINE 0-5 /HPF (0-5); WBC,URINE (MAN) 0-5 /HPF (0-5)
[2024-08-26 12:55] VITALS: TEMP 98.5
[2024-08-26] MEDS: KETOROLAC TROMETHAMINE 30 MG/ML VIAL IV STA (13:14)
[2024-08-26] MEDS: CLOPIDOGREL BISULFATE 75 MG TAB PO ONE (13:15)
[2024-08-26] MEDS: ASPIRIN 81 MG CHEW TAB PO ONE (13:15)
[2024-08-26 13:45] VITALS: PULSE 75; RESP 19
[2024-08-26 14:04] VITALS: BP 174/126; PULSE 75; RESP 18; O2SAT 100
== END 2024-08-26 14:17 | disposition other institution (70) ==
LOC: ER 11:12
DX: R47.81 Slurred speech (principal); R42 Dizziness and giddiness; R29.818 Other symptoms and signs involving the nervous system; I10 Essential (primary) hypertension; E78.5 Hyperlipidemia, unspecified; M54.9 Dorsalgia, unspecified; G89.29 Other chronic pain
CPT/HCPCS: 36415; 70450; 70496; 70498; 80053; 81001; 82948; 84484; 85025; 85610; 93005; 99284; J1885

== ENCOUNTER 2024-10-04 19:05 | Inpatient (IN) | payer OTHER, BC ==
[~2024-10-04] VITALS: Ht 160 cm; Wt 82.6 kg
[2024-10-04 20:35] LABS: BASOPHILS % 0.3 % (0.0-1.0); EOSINOPHILS % 0.2 % (0.0-6.0); HEMATOCRIT 43.7 % (34.2-44.1); HEMOGLOBIN 14.8 g/dL (12.0-16.0); LYMPHOCYTES # (AUTO) 4.1 (1.0-3.2); LYMPHOCYTES % 25.7 % (18.0-39.1); MEAN CORPUSCULAR HGB CONC 33.9 g/dL (31-35); MEAN CORPUSCULAR VOLUME 88.6 fL (81-99); MONOCYTES # (AUTO) 0.7 (0.2-0.8); MONOCYTES % 4.6 % (4.4-11.3); NEUTROPHILS % 68.8 % (38.7-80.0); PLATELET COUNT 365 x10e3/uL (140-360); RED BLOOD COUNT 4.93 x10e6/uL (3.6-5.1); RED CELL DISTRIBUTION WIDTH 13.9 % (11.7-14.4); WHITE BLOOD COUNT 15.94 x10e3/uL (4.8-10.8)
[2024-10-04] MEDS: ONDANSETRON HCL INJ 2MG/ML 2ML 2 MG/ML VIAL IV STA (20:35)
[2024-10-04] MEDS: SODIUM CHLORIDE 0.9% 1000ML 1,000 ML IV ONE ×2 (20:35→23:14)
[2024-10-04 20:55] LABS: ALANINE AMINOTRANSFERASE 25 IU/L (0-55); ALBUMIN 4.4 g/dL (3.5-5.0); ALBUMIN/GLOBULIN RATIO 1.1 (0.8-2.0); ALKALINE PHOSPHATASE 70 IU/L (40-150); ANION GAP 19.9 mmol/L (8-16); BILIRUBIN,TOTAL 0.5 mg/dL (0.2-1.2); BLOOD UREA NITROGEN 46 mg/dL (7-26); BUN/CREATININE RATIO 15 (6-25); CALCIUM 10.1 mg/dL (8.4-10.2); CARBON DIOXIDE 20 mmol/L (22-29); CHLORIDE 97 mmol/L (98-107); CREATININE, SERUM 3.08 mg/dL (0.57-1.11); EST GLOMERULAR FILTRATION RATE 18 ML/MIN (>=60); GLUCOSE 103 mg/dL (74-118); LIPASE 34 U/L (8-78); POTASSIUM 4.9 mmol/L (3.5-5.1); SODIUM 132 mmol/L (136-145); TOTAL PROTEIN 8.3 g/dL (6.5-8.1)
[2024-10-04] MEDS: Morphine 4mg INJECTION 4 MG/ML INJ IV ONE (21:15)
[2024-10-04] MEDS: SODIUM CHLORIDE 0.9% 1000ML 1,000 ML IV SCH (23:45)
[2024-10-04 23:52] VITALS: PULSE 86; RESP 18; TEMP 98.5
[2024-10-05] VITALS (7 sets, daily range): BP systolic 82–106; BP diastolic 56–72; PULSE 74–89; RESP 16–18; TEMP 97.4–98.1; O2SAT 97–100
[2024-10-05 00:45] LABS: CLARITY,URINE SL CLOUDY (CLEAR); COLOR,URINE YELLOW (YELLOW)
[2024-10-05 00:46] LABS: BILIRUBIN,URINE NEGATIVE (NEGATIVE); GLUCOSE, URINE NEGATIVE (NEGATIVE); KETONES,URINE TRACE (NEGATIVE); LEUKOCYTE ESTERASE ,URINE NEGATIVE (NEGATIVE); NITRITE,URINE NEGATIVE (NEGATIVE); PH,URINE 6 (5 - 7); PROTEIN,URINE DIPSTICK NEGATIVE (NEGATIVE); URINE UROBILINOGEN 0.2 mg/dL (0.2 - 1)
[2024-10-05 01:08] LABS: BACTERIA,URINE MANY /HPF
[2024-10-05 01:09] LABS: EPITHELIAL CELLS,URINE MODERATE /LPF
[2024-10-05 01:11] LABS: CALCIUM OXALATE CRYSTALS,UR FEW (FEW)
[2024-10-05] MEDS: Morphine 4mg INJECTION 4 MG/ML INJ IV PRN (01:57)
[2024-10-05] MEDS ORDERED: CYCLOBENZAPRINE10 MG PO (02:06)
[2024-10-05] MEDS ORDERED: FLUOXETINE HCL40 MG PO (02:06)
[2024-10-05] MEDS ORDERED: PREGABALIN150 MG PO (02:06)
[2024-10-05] MEDS ORDERED: ATORVASTATIN CA80 MG PO (02:06)
[2024-10-05] MEDS ORDERED: REXULTI2 MG PO (02:06)
[2024-10-05] MEDS ORDERED: ENALAPRIL MALEA20 MG PO (02:06)
[2024-10-05] MEDS ORDERED: OXYCODONE-ACET1 EAC3 PO (02:06)
[2024-10-05] MEDS ORDERED: VARENICLINE TA0.5 MG PO (02:06)
[2024-10-05] MEDS ORDERED: CLONAZEPAM0.5 MG PO (02:06)
[2024-10-05 04:58] LABS: BASOPHILS # (AUTO) 0.1 (0.0-0.1); BASOPHILS % 0.3 % (0.0-1.0); EOSINOPHILS # (AUTO) 0.1 (0.0-0.4); EOSINOPHILS % 0.8 % (0.0-6.0); HEMATOCRIT 37.9 % (34.2-44.1); HEMOGLOBIN 12.6 g/dL (12.0-16.0); LYMPHOCYTES # (AUTO) 6.1 (1.0-3.2); LYMPHOCYTES % 40.3 % (18.0-39.1); MEAN CORPUSCULAR HEMOGLOBIN 30.1 pg (28-32); MEAN CORPUSCULAR HGB CONC 33.2 g/dL (31-35); MEAN CORPUSCULAR VOLUME 90.5 fL (81-99); MONOCYTES # (AUTO) 0.9 (0.2-0.8); MONOCYTES % 6.1 % (4.4-11.3); NEUTROPHILS # (AUTO) 7.9 (2.1-6.9); NEUTROPHILS % 52.1 % (38.7-80.0); PLATELET COUNT 265 x10e3/uL (140-360); RED BLOOD COUNT 4.19 x10e6/uL (3.6-5.1); RED CELL DISTRIBUTION WIDTH 14.3 % (11.7-14.4); WHITE BLOOD COUNT 15.16 x10e3/uL (4.8-10.8)
[2024-10-05 05:05] LABS: INR 0.94; PROTHROMBIN TIME 13.2 seconds (11.9-14.5)
[2024-10-05 05:06] LABS: PARTIAL THROMBOPLASTIN TIME 30.5 seconds (23.8-35.5)
[2024-10-05 05:24] LABS: ALBUMIN 3.3 g/dL (3.5-5.0); ALBUMIN/GLOBULIN RATIO 1.2 (0.8-2.0); ANION GAP 15.3 mmol/L (8-16); BILIRUBIN,TOTAL 0.6 mg/dL (0.2-1.2); CALCIUM 8.6 mg/dL (8.4-10.2); CREATININE, SERUM 2.03 mg/dL (0.57-1.11); POTASSIUM 4.3 mmol/L (3.5-5.1); TOTAL PROTEIN 6.1 g/dL (6.5-8.1)
[2024-10-05] MEDS: ONDANSETRON HCL INJ 2MG/ML 2ML 2 MG/ML VIAL IV PRN (17:13)
[2024-10-05] MEDS ORDERED: ALBUTEROL 90 MCG/ACT INHALER INH PRN (18:45)
[2024-10-05] MEDS ORDERED: CYCLOBENZAPRINE HCL 10 MG TAB PO PRN (18:45)
[2024-10-05] MEDS ORDERED: CLONAZEPAM 0.5 MG TAB PO PRN (18:45)
[2024-10-05] MEDS ORDERED: TRAMADOL HCL 50 MG TAB PO PRN (18:45)
[2024-10-05] MEDS: PREGABALIN 50 MG CAP PO SCH (20:38)
[2024-10-06 00:08] VITALS: BP 96/71; PULSE 74; RESP 17; TEMP 97.6; O2SAT 99
[2024-10-06] MEDS: METOCLOPRAMIDE HCL 10 MG TAB PO SCH (01:02)
[2024-10-06 04:10] VITALS: BP 103/68; PULSE 78; RESP 17; TEMP 97.6; O2SAT 100
[2024-10-06 05:09] LABS: BASOPHILS # (AUTO) 0.1 (0.0-0.1); BASOPHILS % 0.7 % (0.0-1.0); EOSINOPHILS # (AUTO) 0.2 (0.0-0.4); EOSINOPHILS % 1.9 % (0.0-6.0); HEMATOCRIT 37.7 % (34.2-44.1); HEMOGLOBIN 11.9 g/dL (12.0-16.0); LYMPHOCYTES # (AUTO) 5.9 (1.0-3.2); LYMPHOCYTES % 60.8 % (18.0-39.1); MEAN CORPUSCULAR HEMOGLOBIN 29.7 pg (28-32); MEAN CORPUSCULAR HGB CONC 31.6 g/dL (31-35); MONOCYTES # (AUTO) 0.5 (0.2-0.8); NEUTROPHILS # (AUTO) 3.1 (2.1-6.9); NEUTROPHILS % 31.3 % (38.7-80.0); PLATELET COUNT 270 x10e3/uL (140-360); RED BLOOD COUNT 4.01 x10e6/uL (3.6-5.1); RED CELL DISTRIBUTION WIDTH 13.8 % (11.7-14.4); WHITE BLOOD COUNT 9.77 x10e3/uL (4.8-10.8)
[2024-10-06 05:20] LABS: ANION GAP 12.3 mmol/L (8-16); CALCIUM 8.4 mg/dL (8.4-10.2); CREATININE, SERUM 1.05 mg/dL (0.57-1.11); POTASSIUM 4.3 mmol/L (3.5-5.1)
[2024-10-06 07:59] VITALS: BP 110/74; PULSE 82; RESP 18; TEMP 97.8; O2SAT 100
[2024-10-06 08:56] VITALS: BP 110/74; PULSE 82; RESP 18; TEMP 97.8; O2SAT 100
[2024-10-06] MEDS ORDERED: NON-FORMULARY MEDICATION (Brexpiprazole (Rexulti) 1 TAB) PO SCH (09:00)
[2024-10-06] MEDS: FAMOTIDINE 20 MG TAB PO SCH (09:02)
[2024-10-06] MEDS: ENALAPRIL MALEATE 10 MG TAB PO SCH (09:03)
[2024-10-06] MEDS: SERTRALINE HCL 100 MG TAB PO SCH (09:03)
[2024-10-06 12:02] VITALS: BP 110/83; PULSE 82; RESP 19; TEMP 97.9; O2SAT 98
[2024-10-06 12:28] LABS: BASOPHILS % (MANUAL) 1 % (0-1.5); EOSINOPHILS % (MANUAL) 1 % (0-7); LYMPHOCYTES % (MANUAL) 58 % (19-48); MONOCYTES % (MANUAL) 4 % (3.4-9.0); NEUTROPHILS % (MANUAL) 28 % (40-74); REACTIVE LYMPHOCYTES 8
[2024-10-06 12:29] LABS: PLATELET ESTIMATE ADEQUATE; PLATELET MORPHOLOGY COMMENT NORMAL; RBC MORPHOLOGY COMMENT NORMAL
== END 2024-10-06 15:18 | disposition home or self-care (01) | DRG 872 ==
LOC: ER 20:10 → ERHOLD 23:41 → MED/SURG 10-05 00:40
PROVIDERS: ADMIT Internal Medicine; ATTEND Internal Medicine
PROC: 0D9670Z Drainage of Stomach with Drainage Device, Via Natural or Artificial Opening (ICD-10-PCS; principal; 2024-10-04)
PROC: 3E03329 Introduction of Other Anti-infective into Peripheral Vein, Percutaneous Approach (ICD-10-PCS; 2024-10-04)
DX: A41.9 Sepsis, unspecified organism (principal); K56.600 Partial intestinal obstruction, unspecified as to cause; A04.9 Bacterial intestinal infection, unspecified; N17.9 Acute kidney failure, unspecified; D47.1 Chronic myeloproliferative disease; F33.1 Major depressive disorder, recurrent, moderate; R65.20 Severe sepsis without septic shock; E86.0 Dehydration; I10 Essential (primary) hypertension; G89.29 Other chronic pain; M54.9 Dorsalgia, unspecified; Z79.899 Other long term (current) drug therapy
CPT/HCPCS: 36415; 74018; 74176; 76705; 80048; 80053; 81001; 83605; 83690; 84702; 85025; 85610; 85730; 87040; 87086; 87186; 99284; J2270; J2405; J2543; J7030

== ENCOUNTER 2025-01-08 18:34 | Emergency (ER) | payer BC, OTHER ==
[~2025-01-08] VITALS: Ht 160 cm; Wt 82.6 kg
[~2025-01-08 18:34] MED LIST changes: +ATORVASTATIN CA80 MG PO; +CLONAZEPAM0.5 MG PO; +CYCLOBENZAPRINE10 MG PO; +ENALAPRIL MALEA20 MG PO; +FLUOXETINE HCL40 MG PO; +OXYCODONE-ACET1 EAC3 PO; +PREGABALIN150 MG PO; +REXULTI2 MG PO; +VARENICLINE TA0.5 MG PO
[2025-01-08 18:43] VITALS: PULSE 92; RESP 16; TEMP 98.2; O2SAT 99
[2025-01-08] MEDS ORDERED: MEDROL4 M2 PO (21:01)
== END 2025-01-08 21:04 | disposition home or self-care (01) ==
LOC: ER 18:49
DX: M25.562 Pain in left knee (principal); M17.12 Unilateral primary osteoarthritis, left knee; I10 Essential (primary) hypertension; E78.5 Hyperlipidemia, unspecified; Z86.73 Personal history of transient ischemic attack (TIA), and cerebral infarction without residual deficits; G43.909 Migraine, unspecified, not intractable, without status migrainosus; M54.9 Dorsalgia, unspecified
CPT/HCPCS: 99283